=== PATIENT | male | born 1935 | race Caucasian/White ===

== ENCOUNTER 2020-06-21 10:20 | Outpatient (REF) | payer MEDICARE, SELFPAY ==
[2020-06-21 13:19] LABS: Anion Gap 13 (12-20); Blood Urea Nitrogen 17 mg/dL (9-16); Calcium 9.1 mg/dL (8.4-10.2); Carbon Dioxide 31 mmol/L (22-29); Chloride 104 mmol/L (96-108); Estimated Glomerular Filt Rate > 60; Glucose Random 123 mg/dL (60-115); Potassium 4.2 mmol/L (3.3-5.1); Sodium 144 mmol/L (135-145)
== END 2020-06-21 10:21 | disposition home or self-care (01) ==
LOC: HO.10HDL 10:20
PROVIDERS: Visit Provider Internal Medicine
DX: I10 Essential (primary) hypertension (principal); J44.9 Chronic obstructive pulmonary disease, unspecified; E78.00 Pure hypercholesterolemia, unspecified; R97.20 Elevated prostate specific antigen [PSA]; Z12.5 Encounter for screening for malignant neoplasm of prostate
CPT/HCPCS: 36415; 80048; 84153

== ENCOUNTER 2020-07-03 11:02 | Outpatient (REF) | payer MEDICARE, SELFPAY ==
[2020-07-03 15:42] LABS: PSA,Total (Free>4and<10) 7.11 ng/mL (0.00-4.00)
[2020-07-04 11:36] LABS: Free Prostate Spec Ag 1.2 ng/mL; Percent Free Prostate Spec Ag 19 % (calc) (>25); Prostate Specific Ag Total 6.2 ng/mL (< OR = 4.0)
== END 2020-07-03 11:03 | disposition home or self-care (01) ==
LOC: HO.10HDL 11:02
PROVIDERS: Visit Provider Internal Medicine
DX: R97.20 Elevated prostate specific antigen [PSA] (principal); Z12.5 Encounter for screening for malignant neoplasm of prostate
CPT/HCPCS: 36415; 84153; 84154

== ENCOUNTER → 2020-09-06 13:57 | Outpatient (BNVA) | payer MEDICARE, SELFPAY | PROVIDERS: PCP Internal Medicine; Visit Provider Urology | DX: R97.20 Elevated prostate specific antigen [PSA] (principal); N40.2 Nodular prostate without lower urinary tract symptoms | CPT/HCPCS: 99202 ==

== ENCOUNTER 2020-12-24 10:02 | Outpatient (REF) | payer MEDICARE, SELFPAY | END 2020-12-24 10:03 | disposition home or self-care (01) | LOC: HO.10HDL 10:02 | PROVIDERS: Visit Provider Urology | DX: R97.20 Elevated prostate specific antigen [PSA] (principal) | CPT/HCPCS: 36415; 84153 ==

== ENCOUNTER → 2021-01-08 13:50 | Outpatient (BNVA) | payer MEDICARE, SELFPAY | PROVIDERS: PCP Internal Medicine; Visit Provider Urology | DX: N40.1 Benign prostatic hyperplasia with lower urinary tract symptoms (principal); N13.8 Other obstructive and reflux uropathy; N47.1 Phimosis; R39.12 Poor urinary stream; R97.20 Elevated prostate specific antigen [PSA] | CPT/HCPCS: Q3014 ==

== ENCOUNTER → 2021-02-15 13:42 | Outpatient (BNVA) | payer MEDICARE, SELFPAY | PROVIDERS: Visit Provider Urology | DX: N40.2 Nodular prostate without lower urinary tract symptoms (principal); N47.1 Phimosis; R97.20 Elevated prostate specific antigen [PSA] | CPT/HCPCS: 99212 ==

== ENCOUNTER 2021-04-10 07:46 | Outpatient (REF) | payer MEDICARE, SELFPAY ==
[2021-04-10 10:20] LABS: Basophils Absolute Auto 0.1 X10*3/uL (0.0-0.2); Basophils Percent Auto 0.7 % (0-2); Eosinophils Absolute Auto 0.2 X10*3/uL (0.0-0.4); Hematocrit 42.4 % (42.0-52.0); Hemoglobin 13.9 g/dl (14.0-18.0); Imm Gran Abs Auto 0.02 X10*3/uL (0.00-0.03); Imm Gran Pct Auto 0.3 % (0.0-0.4); Lymphocytes Absolute Auto 2.4 X10*3/uL (1.2-4.9); Lymphocytes Percent Auto 33.1 % (20-40); MANUAL DIFF FLAG SCAN; Mean Corpuscular HGB Conc 32.8 g/dl (31.0-36.0); Mean Corpuscular Volume 91.4 fL (80.0-98.0); Monocytes Absolute Auto 0.6 X10*3/uL (0.1-1.2); Monocytes Percent Auto 7.5 % (2-11); Neutrophils Absolute Auto 4.1 x10*3/uL (2.0-8.3); Neutrophils Percent Auto 55.4 % (45-73); PLT CLUMP 1; Red Blood Count 4.64 X10*6/uL (4.60-5.80); Red Cell Distribution Width 12.5 % (11.0-16.0); SCAN SMEAR FLAG 1
[2021-04-10 10:52] LABS: Platelet Count 140 X10*3/uL (160-400); White Blood Count 7.4 X10*3/uL (4.8-10.8)
[2021-04-10 10:53] LABS: SLIDE REVIEW VERIFIED
[2021-04-10 10:57] LABS: Alanine Aminotransferase 11 U/L (0-40); Alkaline Phosphatase 51 U/L (39-117); Anion Gap 11 (12-20); Aspartate Amino Transferase 15 U/L (5-37); Bilirubin Total 0.5 mg/dL (0.0-1.0); Blood Urea Nitrogen 23 mg/dL (9-16); Calcium 9.4 mg/dL (8.4-10.2); Carbon Dioxide 32 mmol/L (22-29); Chloride 105 mmol/L (96-108); Cholesterol 177 mg/dL; Estimated Glomerular Filt Rate 57; Glucose Fasting 107 mg/dL (60-99); HDL Cholesterol 39 mg/dL; LDL Cholesterol Calculated 115 mg/dl; Potassium 4.6 mmol/L (3.3-5.1); Sodium 143 mmol/L (135-145); Total Protein 6.3 g/dL (6.5-8.0); Triglycerides 116 mg/dL
== END 2021-04-10 07:47 | disposition home or self-care (01) ==
LOC: HO.10HDL 07:46
PROVIDERS: Visit Provider Internal Medicine
DX: I10 Essential (primary) hypertension (principal); J44.9 Chronic obstructive pulmonary disease, unspecified; E78.00 Pure hypercholesterolemia, unspecified
CPT/HCPCS: 36415; 80053; 80061; 85025

== ENCOUNTER → 2021-08-20 14:42 | Outpatient (BNVA) | payer MEDICARE, SELFPAY | PROVIDERS: PCP Internal Medicine; Visit Provider Urology | DX: N40.3 Nodular prostate with lower urinary tract symptoms (principal); N13.8 Other obstructive and reflux uropathy; R97.20 Elevated prostate specific antigen [PSA]; Z79.899 Other long term (current) drug therapy | CPT/HCPCS: 51798; 99212 ==

== ENCOUNTER 2022-02-25 10:30 | Outpatient (REF) | payer MEDICARE, SELFPAY ==
[2022-02-25 12:23] LABS: Anion Gap 12 (12-20); Blood Urea Nitrogen 21 mg/dL (9-16); Calcium 9.1 mg/dL (8.4-10.2); Carbon Dioxide 31 mmol/L (22-29); Chloride 103 mmol/L (96-108); Estimated Glomerular Filt Rate 58; Glucose Random 72 mg/dL (60-115); Potassium 4.3 mmol/L (3.3-5.1); Sodium 142 mmol/L (135-145)
[2022-02-25 13:04] LABS: PSA,Total (Free>4and<10) 6.29 ng/mL (0.00-4.00)
[2022-02-27 11:07] LABS: Free Prostate Spec Ag 0.9 ng/mL; Percent Free Prostate Spec Ag 30 % (calc) (>25)
== END 2022-02-25 10:31 | disposition home or self-care (01) ==
LOC: HO.10HDL 10:30
PROVIDERS: Absent Provider Internal Medicine; Visit Provider Urology
DX: N40.1 Benign prostatic hyperplasia with lower urinary tract symptoms (principal); N13.8 Other obstructive and reflux uropathy; R97.20 Elevated prostate specific antigen [PSA]; N18.9 Chronic kidney disease, unspecified; E78.00 Pure hypercholesterolemia, unspecified; Z12.5 Encounter for screening for malignant neoplasm of prostate
CPT/HCPCS: 36415; 80048; 84153; 84154

== ENCOUNTER → 2022-03-13 10:03 | Outpatient (BNVA) | payer MEDICARE, SELFPAY | PROVIDERS: PCP Internal Medicine; Visit Provider Urology | DX: N40.1 Benign prostatic hyperplasia with lower urinary tract symptoms (principal); N13.8 Other obstructive and reflux uropathy; R97.20 Elevated prostate specific antigen [PSA]; N47.1 Phimosis | CPT/HCPCS: Q3014 ==

== ENCOUNTER 2022-04-24 07:50 | Outpatient (REF) | payer MEDICARE, SELFPAY ==
[2022-04-24 10:51] LABS: Eosinophils Percent Auto 3.8 % (0-4); Red Cell Distribution Width 12.6 % (11.0-16.0); SCAN SMEAR FLAG 1
[2022-04-24 10:53] LABS: Basophils Absolute Auto 0.1 X10*3/uL (0.0-0.2); Basophils Percent Auto 0.9 % (0-2); Eosinophils Absolute Auto 0.3 X10*3/uL (0.0-0.4); Hematocrit 40.3 % (42.0-52.0); Hemoglobin 13.2 g/dl (14.0-18.0); Imm Gran Abs Auto 0.01 X10*3/uL (0.00-0.03); Imm Gran Pct Auto 0.1 % (0.0-0.4); Lymphocytes Absolute Auto 2.7 X10*3/uL (1.2-4.9); Lymphocytes Percent Auto 35.1 % (20-40); MANUAL DIFF FLAG SCAN; Mean Corpuscular HGB Conc 32.8 g/dl (31.0-36.0); Mean Corpuscular Hemoglobin 28.9 pg (27.0-33.0); Mean Corpuscular Volume 88.4 fL (80.0-98.0); Monocytes Absolute Auto 0.6 X10*3/uL (0.1-1.2); Monocytes Percent Auto 7.8 % (2-11); Neutrophils Percent Auto 52.3 % (45-73); PLT CLUMP 1; Red Blood Count 4.56 X10*6/uL (4.60-5.80)
[2022-04-24 10:55] LABS: PLT ABN DIST 1
[2022-04-24 12:14] LABS: Platelet Count 165 X10*3/uL (160-400); White Blood Count 7.7 X10*3/uL (4.8-10.8)
[2022-04-24 12:15] LABS: SLIDE REVIEW VERIFIED
[2022-04-24 13:01] LABS: Alanine Aminotransferase 8 U/L (0-40); Albumin Level 3.8 g/dL (3.5-5.0); Alkaline Phosphatase 53 U/L (39-117); Anion Gap 11 (12-20); Aspartate Amino Transferase 14 U/L (5-37); Bilirubin Total 0.7 mg/dL (0.0-1.0); Blood Urea Nitrogen 16 mg/dL (9-16); Calcium 9.2 mg/dL (8.4-10.2); Carbon Dioxide 31 mmol/L (22-29); Chloride 104 mmol/L (96-108); Cholesterol 181 mg/dL; Estimated Glomerular Filt Rate > 60; Glucose Fasting 91 mg/dL (60-99); HDL Cholesterol 37 mg/dL; LDL Cholesterol Calculated 119 mg/dl; Potassium 4.4 mmol/L (3.3-5.1); Sodium 142 mmol/L (135-145); Total Protein 6.1 g/dL (6.5-8.0); Triglycerides 129 mg/dL
== END 2022-04-24 07:51 | disposition home or self-care (01) ==
LOC: HO.10HDL 07:50
PROVIDERS: Visit Provider Internal Medicine
DX: E78.00 Pure hypercholesterolemia, unspecified (principal); J44.9 Chronic obstructive pulmonary disease, unspecified; N40.0 Benign prostatic hyperplasia without lower urinary tract symptoms
CPT/HCPCS: 36415; 80053; 80061; 85025

== ENCOUNTER 2022-06-16 09:54 | Inpatient (IN) | payer MEDICARE, SELFPAY ==
[2022-06-16] VITALS (8 sets, daily range): BP systolic 121–182; BP diastolic 62–90; PULSE 54–67; RESP 15–22; TEMP 36.4–36.8; O2SAT 93–98; BMI 26.9
--- NOTE | 2022-06-16 10:09 | ED.CHESTPAIN ---
HPI - Chest Pain General Chief Complaint: Chest Pain Stated Complaint: CP DOWN L ARM SINCE 9:30,NO HX Time Seen by Provider: 06/16/22 09:58 Source: patient Mode of arrival: EMS Limitations: no limitations History of Present Illness HPI narrative: After going to the store this morning patient developed gastric distress, started belching and developed chest pain. He states that he started to sweat. No recent heart issues, no history of chest pain. MD complaint: chest heaviness Onset (ago): minute(s) Prior episodes: No Onset: during rest Pain location: substernal Pain radiation: none Severity: moderate Quality: tightness and aching Treatment prior to arrival: aspirin Related Data Home Medications Medication Instructions Recorded Confirmed lovastatin 40 mg tablet 40 mg PO BEDTIME 09/06/20 06/16/22 multivitamin 1 tab PO QAM 06/16/22 06/16/22 Previous Rx's Medication Instructions Recorded finasteride 5 mg tablet 5 mg PO DAILY 90 days #90 tabs 03/13/22 Allergies Allergy/AdvReac Type Severity Reaction Status Date / Time No Known Allergies Allergy Verified 06/16/22 10:09 [No Known Allergies*] Review of Systems Review of Systems: Yes all other systems are reviewed and are negative Cardiovascular: Cardiovascular: Reports chest pain at rest Neurologic: Denies Sensory deficit (Neuro) [facility] Past Medical History Medical History HTN (hypertension) Family History Family History Father Prostate cancer Diabetes Mother Heart attack Social History Social History Alcohol intake: current Alcohol intake frequency: holidays/special occasions only Patient Tobacco Use Status: Former Tobacco user Smoked in Last 30 Days: No Use of substances other than those prescribed or required for medical reasons: No Advance Directives: Yes Advance Directives on File: No Physical Exam Vital Signs: Vital Signs: Last Vital Signs Temp 97.5 F 06/16/22 10:10 Pulse 54 06/16/22 13:41 Resp 15 06/16/22 13:41 BP 138/65 06/16/22 13:41 Pulse Ox 97 06/16/22 13:41 O2 Del Method 02/06/23 13:41 BMI result Body Mass Index 26.9 Const: General: healthy appearing Nutritional Appearance: average body habitus Orientation/consciousness: oriented to person and patient oriented x3 Limitations: no limitations HEENT: Head: Yes normal to inspection Ears: external ears normal General nose exam: Normal external nose present Mouth: Normal oral and palatal mucosa present and oropharynx normal Throat: Yes posterior oropharynx normal Eyes: General: appearance normal, both eyes and all related structures Neck: Other: supple Neck: Yes normal visual inspection Chest: Chest palpation & inspection: normal inspection of the chest Resp: Auscultation: clear to auscultation bilaterally Cardio: Jugular venous distension: no JVD Rate: regular rate Rhythm: regular rhythm Heart sounds: S1 normal heart sound present and S2 normal heart sound present GI: Inspection: Yes normal to inspection Palpation (GI): Soft to palpation, nontender and No hepatosplenomegaly present Auscultation: normal bowel sounds : General: Yes no CVA tenderness Back/Spine/Pelvis: Back: no CVA tenderness Skin: General skin exam: no rashes or lesions noted Neuro: General: oriented to person and patient oriented x3 Cranial nerves: Yes CN's II-XII intact bilaterally Motor exam (neuro): 5/5 motor strength present throughout Sensory Exam: No Sensory deficit (Neuro) Extrem: General: Yes normal to inspection Psych: Appearance: grossly normal Course Reevaluation(s) Reevaluation #1: repeat troponin elevated, discussed with dr. Ward will admit Time: 14:59 Reevaluation #2: I spent 40 minutes of critical care, with interventions, assessments, speaking to patient, consultants, and family. Time: 14:59 Medications Administered Generic Name Dose Route Start Last Admin Trade Name Freq PRN Reason Stop Dose Admin Nitroglycerin 0.4 mg 06/16/22 10:42 06/16/22 10:32 Nitroglycerin 0.4 Mg Tab.Subl SUBLINGUAL 0.4 mg Q5MX3 PRN Administration Chest Pain Discontinued Medications Generic Name Dose Route Start Last Admin Trade Name Freq PRN Reason Stop Dose Admin Al Hydroxide/Mg Hydroxide 30 ml 06/16/22 10:55 06/16/22 11:28 Magnesium Hydrox/Alum Hydrox 30 Ml Oral.Susp PO 06/16/22 10:56 30 ml ONCE ONE Administration Belladonna Alkaloids/Phenobarbital 10 ml 06/16/22 10:55 06/16/22 11:28 Phenobarb/Hyoscy/Atropine/Scop 10 Ml Elixir PO 06/16/22 10:56 10 ml ONCE ONE Administration Lidocaine HCl 15 ml 06/16/22 10:55 06/16/22 11:28 Lidocaine Hcl Viscous 2 % 15 Ml Solution MUCOUS MEM 06/16/22 10:56 15 ml ONCE ONE Administration Medical Decision Making Differential Diagnosis Differential Diagnoses: The differential diagnosis associated with the presentation includes (STEMI, cardiac ischemia, GERD) cardiac ischemia Consult Healthcare Provider Management of the patient was discussed with: Hospitalist and Filter Press Supervisor (cardiology dr. Ward) Lab Data MDM Lab Attestation statement: I reviewed the patient's lab results. 06/16/22 10:24 06/16/22 10:24 Labs: Lab Results 06/16/22 06/16/22 06/16/22 Range/Units 10:24 10:24 10:24 WBC 7.9 (4.8-10.8) X10*3/uL RBC 4.66 (4.60-5.80) X10*6/uL Hgb 13.5 L (14.0-18.0) g/dl Hct 40.4 L (42.0-52.0) % MCV 86.7 (80.0-98.0) fL MCH 29.0 (27.0-33.0) pg MCHC 33.4 (31.0-36.0) g/dl RDW 12.1 (11.0-16.0) % Plt Count 136 L (160-400) X10*3/uL MPV 12.4 (9.4-12.4) fL Immature Gran % (Auto) 0.3 (0.0-0.4) % Neut % (Auto) 61.2 (45-73) % Lymph % (Auto) 28.3 (20-40) % [place] % (Auto) 7.5 (2-11) % Eos % (Auto) 1.9 (0-4) % Baso % (Auto) 0.8 (0-2) % Lymph # (Auto) 2.2 (1.2-4.9) X10*3/uL [place] # (Auto) 0.6 (0.1-1.2) X10*3/uL Eos # (Auto) 0.2 (0.0-0.4) X10*3/uL Baso # (Auto) 0.1 (0.0-0.2) X10*3/uL Abs Immat Gran (auto) 0.02 (0.00-0.03) X10*3/uL Absolute Neuts (auto) 4.8 (2.0-8.3) x10*3/uL Absolute Nucleated RBC 0.000 (0.0-0.012) X10*3/uL Nucleated RBC % (auto) 0.0 (0.0-0.2) /100WBC Sodium 141 (135-145) mmol/L Potassium 4.0 (3.3-5.1) mmol/L Chloride 104 (96-108) mmol/L Carbon Dioxide 30 H (22-29) mmol/L Anion Gap 11 L (12-20) BUN 24 H (9-16) mg/dL Creatinine 1.16 (0.5-1.4) mg/dL Estim Creat Clear Calc 49.5 Estimated GFR 60 Random Glucose 127 H (60-115) mg/dL Calcium 9.2 (8.4-10.2) mg/dL Troponin I High Sens 5.8 (<3.5-35.0) ng/L 06/16/22 Range/Units 12:53 WBC (4.8-10.8) X10*3/uL RBC (4.60-5.80) X10*6/uL Hgb (14.0-18.0) g/dl Hct (42.0-52.0) % MCV (80.0-98.0) fL MCH (27.0-33.0) pg MCHC (31.0-36.0) g/dl RDW (11.0-16.0) % Plt Count (160-400) X10*3/uL MPV (9.4-12.4) fL Immature Gran % (Auto) (0.0-0.4) % Neut % (Auto) (45-73) % Lymph % (Auto) (20-40) % [place] % (Auto) (2-11) % Eos % (Auto) (0-4) % Baso % (Auto) (0-2) % Lymph # (Auto) (1.2-4.9) X10*3/uL [place] # (Auto) (0.1-1.2) X10*3/uL Eos # (Auto) (0.0-0.4) X10*3/uL Baso # (Auto) (0.0-0.2) X10*3/uL Abs Immat Gran (auto) (0.00-0.03) X10*3/uL Absolute Neuts (auto) (2.0-8.3) x10*3/uL Absolute Nucleated RBC (0.0-0.012) X10*3/uL Nucleated RBC % (auto) (0.0-0.2) /100WBC Sodium (135-145) mmol/L Potassium (3.3-5.1) mmol/L Chloride (96-108) mmol/L Carbon Dioxide (22-29) mmol/L Anion Gap (12-20) BUN (9-16) mg/dL Creatinine (0.5-1.4) mg/dL Estim Creat Clear Calc Estimated GFR Random Glucose (60-115) mg/dL Calcium (8.4-10.2) mg/dL Troponin I High Sens 167.3 H* D (<3.5-35.0) ng/L Independent Interpretation I performed an independent interpretation of an: EKG (sinus 60, 1st degree AV block, no st or twave changes) Interpretation: repeat EKG sinus 60, jpoint elevation resolved Discharge Plan Discharge Clinical Impression: Cardiac ischemia, Elevated troponin Patient Disposition: Admitted As Inpatient
--- NOTE | 2022-06-16 10:14 | ECG_ITS ---
Test Reason : REPEAT Blood Pressure : / mmHG Vent. Rate : 058 BPM Atrial Rate : 058 BPM P-R Int : 222 ms QRS Dur : 090 ms QT Int : 438 ms P-R-T Axes : 074 043 054 degrees QTc Int : 429 ms Sinus bradycardia with 1st degree A-V block Otherwise normal ECG When compared with ECG of 08-JAN-2020 11:44, No significant change was found Referred By: Wilfredo Miranda Electronically Signed By:ANNABELLE BAPTISTE MD
[2022-06-16 10:28] LABS: MANUAL DIFF FLAG NO
[2022-06-16] MEDS: Nitroglycerin 0.4 MG TAB.SUBL SUBLINGUAL (10:32)
[2022-06-16 10:33] LABS: Basophils Absolute Auto 0.1 X10*3/uL (0.0-0.2); Basophils Percent Auto 0.8 % (0-2); Eosinophils Absolute Auto 0.2 X10*3/uL (0.0-0.4); Eosinophils Percent Auto 1.9 % (0-4); Hematocrit 40.4 % (42.0-52.0); Hemoglobin 13.5 g/dl (14.0-18.0); Imm Gran Abs Auto 0.02 X10*3/uL (0.00-0.03); Imm Gran Pct Auto 0.3 % (0.0-0.4); Lymphocytes Absolute Auto 2.2 X10*3/uL (1.2-4.9); Lymphocytes Percent Auto 28.3 % (20-40); Mean Corpuscular HGB Conc 33.4 g/dl (31.0-36.0); Mean Corpuscular Volume 86.7 fL (80.0-98.0); Mean Platelet Volume 12.4 fL (9.4-12.4); Monocytes Absolute Auto 0.6 X10*3/uL (0.1-1.2); Monocytes Percent Auto 7.5 % (2-11); Neutrophils Absolute Auto 4.8 x10*3/uL (2.0-8.3); Neutrophils Percent Auto 61.2 % (45-73); Platelet Count 136 X10*3/uL (160-400); Red Blood Count 4.66 X10*6/uL (4.60-5.80); Red Cell Distribution Width 12.1 % (11.0-16.0); White Blood Count 7.9 X10*3/uL (4.8-10.8)
--- NOTE | 2022-06-16 10:35 | PC.NURSE ---
pt medicated with nitro per order
--- NOTE | 2022-06-16 10:46 | PC.NURSE ---
pt AOx3, VSS, engine monitor applied, EKG done. Reports 4/10 chest pain. Nitro given per order. Pt met with provider.
--- NOTE | 2022-06-16 10:50 | PC.NURSE ---
pt still c/o chest pain, vss, pt c/o dizziness, lightheaded, will notify provider and not administer additional nitro at this time
[2022-06-16 10:53] LABS: Anion Gap 11 (12-20); Blood Urea Nitrogen 24 mg/dL (9-16); Calcium 9.2 mg/dL (8.4-10.2); Carbon Dioxide 30 mmol/L (22-29); Chloride 104 mmol/L (96-108); Creatinine Clr Calc Pharmacy 49.5; Estimated Glomerular Filt Rate 60; Glucose Random 127 mg/dL (60-115); Sodium 141 mmol/L (135-145)
[2022-06-16 11:01] LABS: Troponin-I High Sensitivity 5.8 ng/L (<3.5-35.0)
[2022-06-16] MEDS: Lidocaine HCl Viscous 2 % 15 ML SOLUTION MUCOUS MEM (11:28)
[2022-06-16] MEDS: PHENobarb/Hyoscy/Atropine/Scop 10 ML ELIXIR PO (11:28)
[2022-06-16] MEDS: Magnesium Hydrox/Alum Hydrox 30 ML ORAL.SUSP PO (11:28)
--- NOTE | 2022-06-16 11:30 | PC.NURSE ---
pt a&ox3, vss, pt medicated with gi cocktail, at bedside, quality assurance monitor body intact, call asher within reach, will continue to monitor.
[2022-06-16 13:49] LABS: Troponin-I High Sensitivity 167.3 ng/L (<3.5-35.0)
--- NOTE | 2022-06-16 13:56 | ECG_ITS ---
Test Reason : chest pain Blood Pressure : / mmHG Vent. Rate : 062 BPM Atrial Rate : 062 BPM P-R Int : 216 ms QRS Dur : 084 ms QT Int : 436 ms P-R-T Axes : 084 055 036 degrees QTc Int : 442 ms Sinus rhythm with 1st degree A-V block Otherwise normal ECG When compared with ECG of 16-JUN-2022 13:59, No significant change was found Referred By: Wilfredo Miranda Electronically Signed By:ANNABELLE BAPTISTE MD
--- NOTE | 2022-06-16 14:38 | P.HPHOSP_ITS ---
History of Present Illness Date of Service: 06/16/22 Chief Complaint: Chest pain 87 year old man presenting with chest and epigastric pain with associated diaphoresis that started when he got home from grocery shopping. He reported that he went to sit down and read and started getting epigastric pain, belching and felt diaphoretic. He denied any radiation or other associated symptoms including nausea, vomiting, diarrhea, shortness breath, loss of consciousness. He denied any recent illness, sick contacts, recent travel, history of heart disease. He became concerned about his symptoms and he told his he was going to call 911. On arrival to the ER, his initial troponin was 5.8 and repeat of 167.3 with j point elevated to inital EKG. Chest pain has subsided and patient was given nitroglycerin and started on Heparin drip. He will be admitted for further management and treatment of NSTEMI Review of Systems Review of Systems: Denies any recent fever chills or decrease in appetite respiratory denies any shortness of breath coverage production cardiovascular See HPI gastrointestinal denies any dysphagia abdominal pain nausea vomiting or diarrhea genitourinary denies any dysuria frequency or hematuria musculoskeletal denies any joint pain or swelling neuropsych denies any weakness or seizures all other systems reviewed are negative [facility] Medical History (Updated 06/16/22 @ 15:53 by Blue Ward MD) BPH w urinary obs/LUTS Elevated PSA HTN (hypertension) Phimosis Prostate nodule Family History Father Prostate cancer Diabetes Mother Heart attack Surgical History (Updated 06/16/22 @ 15:58 by Florence Sams NP) History of tonsillectomy Social History Alcohol intake: current Alcohol intake frequency: holidays/special occasions only Patient Tobacco Use Status: Former Tobacco user Smoked in Last 30 Days: No Use of substances other than those prescribed or required for medical reasons: No Advance Directives: Yes Advance Directives on File: No Meds Allergies Allergy/AdvReac Type Severity Reaction Status Date / Time No Known Allergies Allergy Verified 06/16/22 10:09 [No Known Allergies*] Active Medications: Current Medications Heparin Sodium (Porcine) (Heparin Sodium,Porcine 5,000 Unit/Ml Vial) 3,500 unit 40 unit/kg (3500 unit) IVPUSH PROTOCOL BOLUS PRN; Protocol PRN Reason: 40 unit/kg - Heparin Protocol Heparin Sodium (Porcine) (Heparin Sodium,Porcine 5,000 Unit/Ml Vial) 7,000 unit 80 unit/kg (7000 unit) IVPUSH PROTOCOL BOLUS PRN; Protocol PRN Reason: 80 unit/kg - Heparin Protocol Heparin Sodium/Sodium Chloride (Heparin Sodium,Porcine/1/2ns) 25,000 unit in 250 mls @ 0 mls/hr IVCONT .Q0M RODDY; Protocol Nitroglycerin (Nitroglycerin 0.4 Mg Tab.Subl) 0.4 mg SUBLINGUAL Q5MX3 PRN PRN Reason: Chest Pain Last Admin: 06/16/22 10:32 Dose: 0.4 mg Pharmacy Consult (Consult Rx Perform Med Rec) 1 each MISCELLANE ONCE PRN PRN Reason: Consult order Home Medications Medication Instructions Recorded Confirmed Last Taken Type lovastatin 40 mg tablet 40 mg PO BEDTIME 09/06/20 06/16/22 06/15/22 16:00 History multivitamin 1 tab PO QAM 06/16/22 06/16/22 06/16/22 08:00 History Physical Exam Vital Signs and Narrative: Vital Signs: Last Vital Signs Temp 97.5 F 06/16/22 10:10 Pulse 54 06/16/22 13:41 Resp 15 06/16/22 13:41 BP 138/65 06/16/22 13:41 Pulse Ox 97 06/16/22 13:41 O2 Del Method 06/16/22 13:41 BMI result Body Mass Index 26.9 Appearing in no acute distress head is normocephalic atraumatic eyes pupils are PERRLA sclera is anicteric mouth throat mucous membranes are intact and moist neck is supple no lymphadenopathy, no JVD noted lung sounds are clear to auscultation heart regular rate rhythm, clear S1, S2 positive bowel sounds, abdomen is soft, nontender neuro patient is alert x3, no focal deficits Results Labs 06/16/22 10:24 06/16/22 10:24 Labs: Laboratory Results - last 24 hr 06/16/22 06/16/22 06/16/22 10:24 10:24 10:24 MCV 86.7 MCH 29.0 MCHC 33.4 RDW 12.1 Plt Count 136 L MPV 12.4 Immature Gran % (Auto) 0.3 Neut % (Auto) 61.2 Lymph % (Auto) 28.3 [place] % (Auto) 7.5 Eos % (Auto) 1.9 Baso % (Auto) 0.8 Lymph # (Auto) 2.2 [place] # (Auto) 0.6 Eos # (Auto) 0.2 Baso # (Auto) 0.1 Abs Immat Gran (auto) 0.02 Absolute Neuts (auto) 4.8 Absolute Nucleated RBC 0.000 Nucleated RBC % (auto) 0.0 Anion Gap 11 L Estim Creat Clear Calc 49.5 Estimated GFR 60 Random Glucose 127 H Calcium 9.2 Troponin I High Sens 5.8 06/16/22 12:53 MCV MCH MCHC RDW Plt Count MPV Immature Gran % (Auto) Neut % (Auto) Lymph % (Auto) [place] % (Auto) Eos % (Auto) Baso % (Auto) Lymph # (Auto) [place] # (Auto) Eos # (Auto) Baso # (Auto) Abs Immat Gran (auto) Absolute Neuts (auto) Absolute Nucleated RBC Nucleated RBC % (auto) Anion Gap Estim Creat Clear Calc Estimated GFR Random Glucose Calcium Troponin I High Sens 167.3 H* D Assessment and Plan (1) BPH w urinary obs/LUTS: Status: Inactive (2) Acute coronary syndrome: Status: Acute Plan 87-year-old man admitted with acute NSTEMI, initially with chest and epigastric pain that has since resolved after initiation of nitroglycerin and IV heparin. NSTEMI Abnormal EKG Trop elevation started on Heparin drip cardiology aware monitor on telemetry likely tx to [facility] for cath Elevated blood pressure readings No history of high blood pressure Hydralazine for SBP greater than 180 BPH finsteride Hyperlipidemia Continue statin DVT prophylaxis with heparin Attending Dr. Alan full code Patient required 2 inpatient midnights for treatment of acute NSTEMI requiring IV heparin and close monitoring Time Spent With Patient Time: Total time managing care of this patient today ____ minutes. Quality Stroke Does the patient have a stroke diagnosis?: No VTE Prior VTE?: No VTE Risk Level:: Medical - moderate - high VTE Device Contraindication: Treatment Not Indicated VTE Drug Contraindication: N/A - Med Ordered
[2022-06-16 14:41] LABS: Hematocrit 41.2 % (42.0-52.0); Hemoglobin 13.9 g/dl (14.0-18.0); Mean Corpuscular HGB Conc 33.7 g/dl (31.0-36.0); Mean Corpuscular Hemoglobin 29.4 pg (27.0-33.0); Mean Corpuscular Volume 87.3 fL (80.0-98.0); Mean Platelet Volume 12.9 fL (9.4-12.4); Platelet Count 143 X10*3/uL (160-400); Red Blood Count 4.72 X10*6/uL (4.60-5.80); White Blood Count 10.4 X10*3/uL (4.8-10.8)
[2022-06-16 14:57] LABS: Prothrombin Time 11.5 SEC (10.0-13.1); Prothrombin Time 11.7 SEC (10.0-13.1)
--- NOTE | 2022-06-16 14:58 | PHA.MEDREC ---
Pharmacy Consult ? Medication Reconciliation Pharmacy has completed the medication reconciliation.
[2022-06-16 15:00] LABS: PTT Heparin Drip 35.9 SEC (53-77.9)
[2022-06-16] MEDS: Nitroglycerin 2 % Oint 1 GM Packet 1 INCH TRANSDERMA (15:17)
[2022-06-16] MEDS: Heparin Sodium,Porcine 5,000 UNIT/ML VIAL 7000 UNIT IVPUSH (15:25)
[2022-06-16] MEDS: Heparin Sodium,Porcine/1/2NS 25,000 UNIT/250 ML IV.SOLN 12.25 UNIT IVCONT (15:30)
[2022-06-16] MEDS: 0.9 % Sodium Chloride Flush 3 ML SYRINGE IVFLUSH (15:35)
--- NOTE | 2022-06-16 15:36 | PC.NURSE ---
pt AOx3, vss. Heparin drip started. Annette Mackay RN at bedside assisting. Hospitalist and Duct Cleaner met with patient.
--- NOTE | 2022-06-16 15:39 | PC.NURSE ---
Wifes phone number Shannan Petersen [phone]
--- NOTE | 2022-06-16 15:41 | ECG_ITS ---
Test Reason : cp Blood Pressure : / mmHG Vent. Rate : 063 BPM Atrial Rate : 063 BPM P-R Int : 234 ms QRS Dur : 088 ms QT Int : 422 ms P-R-T Axes : 063 062 058 degrees QTc Int : 431 ms Sinus rhythm with 1st degree A-V block Otherwise normal ECG When compared with ECG of 08-JAN-2020 11:44, PA interval has increased Referred By: Wilfredo Miranda Electronically Signed By:ANNABELLE BAPTISTE MD
--- NOTE | 2022-06-16 15:49 | P.CONCA_ITS ---
History of Present Illness History of Present Illness Date of Service: 06/16/22 Requesting physician: Wilfredo Miranda Consult reason: other (Acute coronary syndrome) Chief complaint: NSTEMI Narrative: I was consulted to see Pj in cardiology consultation today for acute chest pain and elevated troponins on serial measurements. He is 87-year-old very healthy man with prior history of hyperlipidemia as well as prostate issues. Generally in good shape. He said he went to the store today and came back home and after breakfast and coffee started developing retrosternal chest discomfort which she thought was indigestion initially. He continued to have belching and the pain continued to get worse and then he got severely diaphoretic and he called 911 and came to the emergency room. EKG does not show any significant ischemic changes. Her 1st troponin is 5 subsequent troponin of 169. His symptoms have pretty much resolved now with medical therapy with aspirin nitroglycerin. He is being started on IV heparin. He said he has been very minor discomfort on a scale of 1-10 is 0-1 at this point in time. He has never had prior coronary artery disease or acute coronary syndrome. Has never had prior chest pain syndrome. He denies any other recent symptoms. No systemic symptoms. Review of Systems Constitutional: Constitutional: Reports no additional constitutional complaints Eyes: Eyes: Reports no additional eye complaints Cardiovascular: Cardiovascular: Reports chest pain at rest, Denies leg edema, Denies lightheadedness, Denies Loss of Consciousness, Denies palpitations and Denies dyspnea Respiratory: Respiratory: Reports no additional respiratory complaints and Denies dyspnea Gastrointestinal: Gastrointestinal: Reports no additional gastrointestinal complaints Genitourinary: Genitourinary: Reports no additional male genitourinary compl aints Musculoskeletal: Musculoskeletal: Reports no additional musculoskeletal complaints Integumentary/Breasts: Skin/Breast: Reports system reviewed and no additional complaints, except as docu Neurologic: Reports system reviewed and no additional complaints, except as documented Psychiatric: Psychiatric: Reports no additional psychiatric complaints Endocrine: Endocrine: Denies palpitations PMFSH Past Medical History Medical History BPH w urinary obs/LUTS Elevated PSA HTN (hypertension) Phimosis Prostate nodule Family History Family History Father Prostate cancer Diabetes Mother Heart attack Social History Social History Alcohol intake: current Alcohol intake frequency: holidays/special occasions only Patient Tobacco Use Status: Former Tobacco user Smoked in Last 30 Days: No Use of substances other than those prescribed or required for medical reasons: No Advance Directives: Yes Advance Directives on File: No Meds Allergies Allergy/AdvReac Type Severity Reaction Status Date / Time No Known Allergies Allergy Verified 06/16/22 10:09 [No Known Allergies*] Active Medications: Current Medications Acetaminophen (Acetaminophen 325 Mg Tablet) 650 mg PO Q6H PRN PRN Reason: Pain, Mild (Pain Scale 1-3) Heparin Sodium (Porcine) (Heparin Sodium,Porcine 5,000 Unit/Ml Vial) 3,500 unit 40 unit/kg (3500 unit) IVPUSH PROTOCOL BOLUS PRN; Protocol PRN Reason: 40 unit/kg - Heparin Protocol Heparin Sodium (Porcine) (Heparin Sodium,Porcine 5,000 Unit/Ml Vial) 7,000 unit 80 unit/kg (7000 unit) IVPUSH PROTOCOL BOLUS PRN; Protocol PRN Reason: 80 unit/kg - Heparin Protocol Heparin Sodium/Sodium Chloride (Heparin Sodium,Porcine/1/2ns) 25,000 unit in 250 mls @ 0 mls/hr IVCONT .Q0M [facility]; Protocol Last Admin: 06/16/22 15:30 Dose: 14 units/kg/hr, 12.25 mls/hr Nitroglycerin (Nitroglycerin 0.4 Mg Tab.Subl) 0.4 mg SUBLINGUAL Q5MX3 PRN PRN Reason: Chest Pain Last Admin: 06/16/22 10:32 Dose: 0.4 mg Ondansetron HCl (Ondansetron Hcl 4 Mg/2 Ml Vial) 4 mg IVPUSH Q8H PRN PRN Reason: Nausea and Vomiting Pharmacy Consult (Consult Rx Perform Med Rec) 1 each MISCELLANE ONCE PRN PRN Reason: Consult order Sodium Chloride (0.9 % Sodium Chloride Flush 3 Ml Syringe) 3 ml IVFLUSH QSHIFT [facility] Last Admin: 06/16/22 15:35 Dose: 3 ml Home Medications Medication Instructions Recorded Confirmed Last Taken Type lovastatin 40 mg tablet 40 mg PO BEDTIME 09/06/20 06/16/22 06/15/22 16:00 History multivitamin 1 tab PO QAM 06/16/22 06/16/22 06/16/22 08:00 History Physical Exam Vital Signs: Vital Signs: Last Vital Signs Temp 97.5 F 06/16/22 10:10 Pulse 67 06/16/22 15:17 Resp 15 06/16/22 13:41 BP 176/74 H 06/16/22 15:17 Pulse Ox 97 06/16/22 13:41 O2 Del Method 06/16/22 13:41 BMI result Body Mass Index 26.9 Const: General: cooperative, comfortable, no acute distress, well developed, alert, awake and Physically active Nutritional Appearance: average body habitus and well nourished Orientation/consciousness: patient oriented x3 Limitations: no limitations HEENT: Head: Yes normocephalic and Yes atraumatic Neck: Neck: Yes trachea midline, Yes supple and Yes no JVD Resp: Effort & Inspection: normal respiratory effort Auscultation: clear to auscultation bilaterally Cardio: Jugular venous distension: no JVD Palpation: normal PMI Rate: regular rate Rhythm: regular rhythm Heart sounds: S1 normal heart sound present, S2 normal heart sound present, no click, no gallops, no murmurs and no rubs GI: Auscultation: normal bowel sounds Skin: General skin exam: no rashes or lesions noted Neuro: General: patient oriented x3 and no focal motor deficits Extrem: General: Yes no clubbing, cyanosis or edema Objective Labs and Meds 06/16/22 14:35 06/16/22 10:24 Lab results: Laboratory Results - last 24 hr 06/16/22 06/16/22 06/16/22 10:24 10:24 10:24 WBC 7.9 RBC 4.66 Hgb 13.5 L Hct 40.4 L MCV 86.7 MCH 29.0 MCHC 33.4 RDW 12.1 Plt Count 136 L MPV 12.4 Immature Gran % (Auto) 0.3 Neut % (Auto) 61.2 Lymph % (Auto) 28.3 [place] % (Auto) 7.5 Eos % (Auto) 1.9 Baso % (Auto) 0.8 Lymph # (Auto) 2.2 [place] # (Auto) 0.6 Eos # (Auto) 0.2 Baso # (Auto) 0.1 Abs Immat Gran (auto) 0.02 Absolute Neuts (auto) 4.8 Absolute Nucleated RBC 0.000 Nucleated RBC % (auto) 0.0 PT INR aPTT Heparin Protocol Sodium 141 Potassium 4.0 Chloride 104 Carbon Dioxide 30 H Anion Gap 11 L BUN 24 H Creatinine 1.16 Estim Creat Clear Calc 49.5 Estimated GFR 60 Random Glucose 127 H Calcium 9.2 Troponin I High Sens 5.8 06/16/22 06/16/22 06/16/22 12:53 14:35 14:35 WBC 10.4 RBC 4.72 Hgb 13.9 L Hct 41.2 L MCV 87.3 MCH 29.4 MCHC 33.7 RDW 12.0 Plt Count 143 L MPV 12.9 H Immature Gran % (Auto) Neut % (Auto) Lymph % (Auto) [place] % (Auto) Eos % (Auto) Baso % (Auto) Lymph # (Auto) [place] # (Auto) Eos # (Auto) Baso # (Auto) Abs Immat Gran (auto) Absolute Neuts (auto) Absolute Nucleated RBC 0.000 Nucleated RBC % (auto) 0.0 PT 11.7 INR 1.0 aPTT Heparin Protocol 35.9 L Sodium Potassium Chloride Carbon Dioxide Anion Gap BUN Creatinine Estim Creat Clear Calc Estimated GFR Random Glucose Calcium Troponin I High Sens 167.3 H* D 06/16/22 14:35 WBC RBC Hgb Hct MCV MCH MCHC RDW Plt Count MPV Immature Gran % (Auto) Neut % (Auto) Lymph % (Auto) [place] % (Auto) Eos % (Auto) Baso % (Auto) Lymph # (Auto) [place] # (Auto) Eos # (Auto) Baso # (Auto) Abs Immat Gran (auto) Absolute Neuts (auto) Absolute Nucleated RBC Nucleated RBC % (auto) PT 11.5 INR 1.0 aPTT Heparin Protocol 34.0 L Sodium Potassium Chloride Carbon Dioxide Anion Gap BUN Creatinine Estim Creat Clear Calc Estimated GFR Random Glucose Calcium Troponin I High Sens Assessment and Plan (1) Acute coronary syndrome: Status: Acute Patient was very healthy without any significant comorbidities in very active in his age presents with symptoms and cardiac biomarker evidence of acute coronary syndrome. He is currently with minimal chest discomfort. No significant EKG changes. I think he requires further treatment with IV heparin. Would loading with 4 baby aspirins and start him on aspirin a day. High-intensity statin therapy with Lipitor 80 mg daily as a start him on metoprolol for better blood pressure control. Also start him on low-dose nitropaste for vasodilation as well as blood pressure control. We discussed about further treatment option including invasive versus conservative treatment option. We discussed benefits of each option. We discussed about cardiac catheterization including the procedure including risk, benefits, alternatives 2nd open to procedure. Given his good health status and limited comorbidities would recommend him to undergo cardiac catheterization. Eventually after his arrival he agree to it. Transfer arrangements are being made to [facility], hopefully today. Please perform a rapid COVID testing for bed placement issues. Will follow-up as outpatient. Time Spent With Patient Time: Total time managing care of this patient today ____ minutes. Procedures Date of Service Date of Service: 06/16/22
--- NOTE | 2022-06-16 17:06 | P.DS_ITS ---
DS: Providers Provider Date of Service: 06/17/22 Date of admission: 06/16/22 14:35 Primary care physician: Ross Gaxiola MD Consults: 06/16/22 14:35 Consult to Cardiology Routine Consulting Provider: Blue Ward Reason for consultation: nstemi Has provider been notified: Yes Attending physician on discharge: Chandrakant Conteh DS: Diagnosis Discharge Diagnosis (1) BPH w urinary obs/LUTS: Status: Inactive (2) Acute coronary syndrome: Status: Acute DS: Summary Hospital Course Hospital Course: 87 year old man presenting with chest and epigastric pain with associated diaphoresis that started when he got home from grocery shopping.? He reported that he went to sit down and read and started getting epigastric pain, belching and felt diaphoretic.? He denied any radiation or other associated symptoms including nausea, vomiting, diarrhea, shortness breath, loss of consciousness.? He denied any recent illness, sick contacts, recent travel, history of heart disease.? He became concerned about his symptoms and he told his he was going to call 911.? On arrival to the ER, his initial troponin was 5.8 and repeat of 167.3 with j point elevated to inital EKG. Chest pain has subsided and patient was given nitroglycerin and started on Heparin drip. He will be admitted for further management and treatment of NSTEMI NSTEMI Abnormal EKG Trop elevation started on Heparin drip cardiology aware monitor on telemetry patient discharged overnight to [facility] for cath Elevated blood pressure readings No history of high blood pressure Hydralazine for SBP greater than 180 BPH finsteride Hyperlipidemia Continue statin Time Spent with Patient Time attestation: Total time managing care of this patient today ____ minutes. Discharge coordination time: Greater than 30 minutes Quality: Safe Use of Opioids Does Pt have an Active Cancer Diagnosis on the Problem List?: No Quality: Stroke Does the patient have a stroke diagnosis?: No Physical Exam Vital Signs: Vital Signs: Last Vital Signs Temp 97.5 F 06/16/22 10:10 Pulse 67 06/16/22 15:17 Resp 15 06/16/22 13:41 BP 176/74 H 06/16/22 15:17 Pulse Ox 97 06/16/22 13:41 O2 Del Method 06/16/22 13:41 BMI result Body Mass Index 26.9 Was not present during discharge to examine patient DS: Data Data Completed and Pending Labs on day of discharge: Laboratory Results - last 24 hr 06/16/22 06/16/22 06/16/22 10:24 10:24 10:24 WBC 7.9 RBC 4.66 Hgb 13.5 L Hct 40.4 L MCV 86.7 MCH 29.0 MCHC 33.4 RDW 12.1 Plt Count 136 L MPV 12.4 Immature Gran % (Auto) 0.3 Neut % (Auto) 61.2 Lymph % (Auto) 28.3 [place] % (Auto) 7.5 Eos % (Auto) 1.9 Baso % (Auto) 0.8 Lymph # (Auto) 2.2 [place] # (Auto) 0.6 Eos # (Auto) 0.2 Baso # (Auto) 0.1 Abs Immat Gran (auto) 0.02 Absolute Neuts (auto) 4.8 Absolute Nucleated RBC 0.000 Nucleated RBC % (auto) 0.0 PT INR aPTT Heparin Protocol Sodium 141 Potassium 4.0 Chloride 104 Carbon Dioxide 30 H Anion Gap 11 L BUN 24 H Creatinine 1.16 Estim Creat Clear Calc 49.5 Estimated GFR 60 Random Glucose 127 H Calcium 9.2 Troponin I High Sens 5.8 06/16/22 06/16/22 06/16/22 12:53 14:35 14:35 WBC 10.4 RBC 4.72 Hgb 13.9 L Hct 41.2 L MCV 87.3 MCH 29.4 MCHC 33.7 RDW 12.0 Plt Count 143 L MPV 12.9 H Immature Gran % (Auto) Neut % (Auto) Lymph % (Auto) [place] % (Auto) Eos % (Auto) Baso % (Auto) Lymph # (Auto) [place] # (Auto) Eos # (Auto) Baso # (Auto) Abs Immat Gran (auto) Absolute Neuts (auto) Absolute Nucleated RBC 0.000 Nucleated RBC % (auto) 0.0 PT 11.7 INR 1.0 aPTT Heparin Protocol 35.9 L Sodium Potassium Chloride Carbon Dioxide Anion Gap BUN Creatinine Estim Creat Clear Calc Estimated GFR Random Glucose Calcium Troponin I High Sens 167.3 H* D 06/16/22 14:35 WBC RBC Hgb Hct MCV MCH MCHC RDW Plt Count MPV Immature Gran % (Auto) Neut % (Auto) Lymph % (Auto) [place] % (Auto) Eos % (Auto) Baso % (Auto) Lymph # (Auto) [place] # (Auto) Eos # (Auto) Baso # (Auto) Abs Immat Gran (auto) Absolute Neuts (auto) Absolute Nucleated RBC Nucleated RBC % (auto) PT 11.5 INR 1.0 aPTT Heparin Protocol 34.0 L Sodium Potassium Chloride Carbon Dioxide Anion Gap BUN Creatinine Estim Creat Clear Calc Estimated GFR Random Glucose Calcium Troponin I High Sens Discharge Plan Discharge Anticipated Discharge Date/Time: 06/16/22 17:04 Patient Disposition: Xfer Acute Care Hospital Discharge Diagnosis: NSTEMI Referrals: Ross Gaxiola MD [Primary Care Provider] - 1 Week Discharge Medications: New heparin(porcine) in 0.45% NaCl 25,000 unit/250 mL Parenteral Solution 25,000 unit continuous IV infusion .Q0M Qty: 250 0RF Continued finasteride 5 mg tablet 5 mg PO DAILY 90 Days Qty: 90 1RF multivitamin Tablet 1 tab PO QAM lovastatin 40 mg tablet 40 mg PO BEDTIME Discharge Orders: Discharge Order (Routine); Ordered 06/16/22 Ordered By: Chandrakant Conteh Diet: Advance to usual diet Activity on Discharge: As tolerated Stand Alone Forms: Patient Portal Discharge page Care Plan Goals: Transfer to tertiary care facility for further management of acute coronary syndrome Health Concerns: NSTEMI Plan of Treatment: Transferred to [facility] for cardiac catheterization Assessment: See discharge summary Discharge Date/Time: 06/16/22 23:30
[2022-06-16 17:29] LABS: Troponin-I High Sensitivity > 3600.0 ng/L (<3.5-35.0)
--- NOTE | 2022-06-16 17:30 | PC.NURSE ---
pt AOx3, vss stable. cardiac nurse on, heparin drip running. pt resting calmly.
[2022-06-16 18:12] LABS: COVID-19 Test Negative (Negative); IDNOW Serial# BCCEAD1C
[2022-06-16 22:03] LABS: PTT Heparin Drip > 200.0 SEC (53-77.9)
--- NOTE | 2022-06-17 05:23 | PC.NURSE ---
Critical ptt level was drawn at 22:10 at >200.00. Doctor Wero notified before discharge and RN receiving report notified before being transported to [facility]. Denied any chest pain.
== END 2022-06-16 23:30 | disposition short-term general hospital (02) | DRG 282 ==
LOC: HO.ED 10:37 → HO.EDOVER 14:41 → HO.IMC 18:24
PROVIDERS: Admitting Provider Nurse Practitioner Acute Care; Emergency Provider Emergency Medicine; PCP Internal Medicine; Visit Provider Nurse Practitioner Acute Care
DX: I21.4 Non-ST elevation (NSTEMI) myocardial infarction (principal); I24.9 Acute ischemic heart disease, unspecified; R03.0 Elevated blood-pressure reading, without diagnosis of hypertension; N40.0 Benign prostatic hyperplasia without lower urinary tract symptoms; E78.5 Hyperlipidemia, unspecified; Z20.822 Contact with and (suspected) exposure to COVID-19; Z79.899 Other long term (current) drug therapy
CPT/HCPCS: 36415; 80048; 84484; 85025; 85027; 85610; 85730; 87635; 93005; 99285; J1643

== ENCOUNTER → 2022-07-14 08:22 | Outpatient (BNVA) | payer MEDICARE, SELFPAY | PROVIDERS: PCP Internal Medicine; Referring Provider Internal Medicine; Visit Provider Internal Medicine Cardiovascular Disease | DX: I25.10 Atherosclerotic heart disease of native coronary artery without angina pectoris (principal); I10 Essential (primary) hypertension; Z79.899 Other long term (current) drug therapy | CPT/HCPCS: 99212 ==

== ENCOUNTER → 2022-07-21 10:01 | Outpatient (REF) | payer MEDICARE, SELFPAY ==
--- NOTE | 2022-07-21 10:03 | CA_ITS ---
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 Study Quality: Fair Conclusions: - The left ventricular systolic function is normal. The calculated ejection fraction is 56% by biplane method. - There is mild calcification of the aortic valve. - There is mild mitral annular calcification. - No obvious valvular pathology seen on this study. Findings Left Ventricle Normal left ventricular cavity size. The left ventricular systolic function is normal. The calculated ejection fraction is 56% by biplane method. There is no evidence of regional wall motion abnormalities. Diastolic function is normal for age. There is mild septal asymmetric hypertrophy. Right Ventricle Normal right ventricular cavity size and systolic function. Atria Both atria are normal in size. Aortic Valve There is a normal trileaflet aortic valve. There is mild calcification of the aortic valve. There is no aortic valve stenosis. There is no aortic valve regurgitation. Mitral Valve The mitral valve appears normal. There is mild mitral annular calcification. There is no mitral valve regurgitation. There is no mitral valve stenosis. Pulmonic Valve The pulmonic valve is likely normal. Tricuspid Valve Normal tricuspid valve structure. There is trace tricuspid valve regurgitation. Tricuspid regurgitation envelope is inadequate for calculation of right ventricular systolic pressure. Great Vessels The asc aorta is normal in size. Venous The inferior vena cava is normal in size and collapses greater than 50% with inspiration. Pericardium/Pleural There is no evidence of pericardial effusion. Prior Study Comparison No prior study available for comparison. Recommendations, Care & Conclusions No obvious valvular pathology seen on this study. Measurements 2D Linear Measurements IVSd: 1.23 0.6-0.9/0.6-1.0 cm LVIDd: 4.49 3.9-5.3/4.2-5.9 cm LVIDd Index: 2.23 2.4-3.2/2.2-3.1 cm/m2 LVIDs: 2.97 2.0-3.6 cm LVPWd: 0.95 0.7-1.1 cm LA Diam: 3.40 2.7-3.8/3.0-4.0 cm LAIDs Index: 1.69 1.5-2.3 cm/m2 LV Mass: 214.89 67-162/88-224 g LV Mass Index: 106.91 43-95/49-115 g/m2 LVOT Diam: 2.10 3.0+(-)1.3 cm 2D Systolic Function EF 4C: 55.40 >55% EF 2C: 56.90 >55% EF BiP: 56.00 >55% Mitral Valve MV Pk E: 0.74 MV PK A: 0.69 MV Decel Time: 349.00 E/A: 1.10 E'Lateral: 7.29 E'Medial: 6.42 E/E' Med: 11.50 E/E' Lat: 10.10 PHT: 102.00 MVA PHT: 2.16 Decel Moore: 2.11 Aortic Valve AoV Pk Ezequiel: 1.29 AoV Mn Ezequiel: 0.86 AoV VTI: 0.31 AoV Pk Grad: 7.00 Aov Mn Grad: 3.00 JESSICA Cont.VTI: 2.97 LVOT LVOT Pk Ezequiel: 1.12 LVOT Mn Ezequiel: 0.71 LVOT VTI: 0.27 LVOT Pk Grad: 5.00 LVOT Mn Grad: 2.00 LVOT Diam: 2.10 LVOT Area: 3.46 Diastolic Function MV Pk E: 0.74 MV Pk A: 0.69 E/A: 1.10 E'Medial: 6.42 E/E' Med: 11.50 E' Laterial: 7.29 E/E' Lat: 10.10 Right Ventricle TAPSE (mm): 26.70 TVS' Ezequiel: 13.20 Tricuspid Valve RA Press: 3.00 Great Vessels Aorta Sinus of Valsalva: 3.74 2.0-3.[address] [place]: 2.65 1.7-3.4 cm Ao Asc: 3.40 2.1-3.4 cm Updated in Other Vendor System with Status of Final Srinivasan Gdooy MD electronically signed on 07/21/2022 4:37:14 PM with status of Final
== END ==
LOC: HO.CARD 10:01
PROVIDERS: Visit Provider Internal Medicine Cardiovascular Disease
DX: I25.10 Atherosclerotic heart disease of native coronary artery without angina pectoris (principal)
CPT/HCPCS: 93306

== ENCOUNTER 2022-08-02 04:15 | Emergency (ER) | payer MEDICARE, SELFPAY ==
--- NOTE | ~2022-08-02 | CT_ITS ---
EXAMINATION: CT ABDOMEN AND PELVIS WITH CONTRAST CLINICAL INFORMATION: Severe abdominal pain COMPARISON: None available. TECHNIQUE: Multidetector volumetric images were obtained from the superior aspect of the liver through the pubic symphysis following administration 85 mL of Omnipaque 350 intravenous contrast. Sagittal and coronal reformatted images were obtained on the technologist's workstation. Oral contrast: No This CT examination was performed using dose optimization techniques as appropriate, variously including the following: *Automated exposure control *Adjustment of mA and/or kV according to patient size (this includes techniques or standardized protocols for targeted exams where dose is matched to indication/reason for exam; i.e. extremities or head) *Use of iterative reconstruction technique DLP: 542 mGy-cm FINDINGS: LUNG BASES: The visualized lung bases are unremarkable. LIVER, GALLBLADDER, AND BILIARY TREE: The liver is normal in size, shape, and attenuation. No focal hepatic lesion or biliary ductal dilatation is present. Gallstones in the gallbladder lumen. No adjacent inflammatory changes are seen. PANCREAS: There is a 1.8 cm cyst at the pancreatic neck ventrally. No pancreatic ductal dilatation. SPLEEN: Unremarkable. ADRENAL GLANDS: Unremarkable. KIDNEYS AND URETERS: The kidneys are normal in size, shape, and attenuation. No hydronephrosis, hydroureter, or calculi seen. No perinephric stranding. Bilateral simple renal cysts. No specific follow-up recommended. BLADDER: Unremarkable. GASTROINTESTINAL TRACT: The stomach is unremarkable. Normal caliber small bowel. There is no obstruction. Normal appendix. No colonic wall thickening or acute inflammation. Prominent sigmoid diverticulosis. No diverticulitis. No free air or free fluid. ABDOMINAL WALL: Fat-containing bilateral inguinal hernias. LYMPH NODES: Normal. VASCULAR: There is an abdominal aortic aneurysm measuring 3.9 cm in AP dimension. Mild atherosclerotic calcification throughout. PELVIC VISCERA: The prostate and seminal vesicles are unremarkable. OSSEOUS STRUCTURES: No acute or suspicious osseous abnormality. Advanced degenerative change throughout the lumbar spine. CT/CT abdomen pelvis w IV con IMPRESSION: 1. No acute findings in the abdomen or pelvis. No inflammatory changes. 2. 3.9 cm abdominal aortic aneurysm. Based on published guidelines in J Am Sai Radiol 2013; 10(10):789-794 and J Vasc Surg. 2018; 67:2-77, the recommendation for an abdominal aortic aneurysm with diameter 3.5-3.9 cm is follow-up every 2 years. 3. 1.8 cm cyst at the pancreatic neck. This can be further evaluated with nonemergent MRI/MRCP. 4. Cholelithiasis without evidence of acute cholecystitis. 5. Prominent sigmoid diverticulosis without diverticulitis.
--- NOTE | ~2022-08-02 | US_ITS ---
EXAMINATION: US ABDOMEN LIMITED CLINICAL INFORMATION: Right upper quadrant pain. Cholecystitis.. COMPARISON: None available. TECHNIQUE: Real-time imaging of the right upper quadrant abdominal viscera. FINDINGS: LIVER: The liver is normal in size. The liver contour is normal. Parenchymal echogenicity is normal. No focal hepatic lesion. There is mild prominence of intrahepatic ducts. GALLBLADDER: There is echogenic stone measuring 2.9 x 1.0 x 2.6 cm. Gallbladder wall thickness measures 0.5 cm. There is echogenic bilaterally neck.. COMMON BILE DUCT: Normal in caliber measuring 0.7 cm in diameter. FREE FLUID: None. US/US abdomen limited IMPRESSION: Echogenic gallstone with mild gallbladder wall thickening. Mild hepatic ductal dilatation.
--- NOTE | 2022-08-02 04:19 | ECG_ITS ---
Test Reason : ABD Blood Pressure : / mmHG Vent. Rate : 055 BPM Atrial Rate : 055 BPM P-R Int : 210 ms QRS Dur : 086 ms QT Int : 444 ms P-R-T Axes : 082 063 -23 degrees QTc Int : 424 ms Sinus bradycardia with 1st degree A-V block Nonspecific ST and T wave abnormality Abnormal ECG When compared with ECG of 16-JUN-2022 15:45, Nonspecific T wave abnormality, worse in Inferior leads Nonspecific T wave abnormality now evident in Anterior leads Referred By: René Garcia Electronically Signed By:ANNABELLE BAPTISTE MD
[2022-08-02 04:47] VITALS: BP 131/71; PULSE 88; RESP 16; TEMP 36.6; O2SAT 98; BMI 26.5
[2022-08-02] MEDS: 0.9 % Sodium Chloride 250 ML 999 ML IV (05:06)
[2022-08-02] MEDS: ondansetron HCL 4 MG/2 ML VIAL IVPUSH (05:06)
[2022-08-02 05:11] LABS: MANUAL DIFF FLAG NO
[2022-08-02 05:12] LABS: Basophils Absolute Auto 0.1 X10*3/uL (0.0-0.2); Basophils Percent Auto 0.6 % (0-2); Eosinophils Absolute Auto 0.1 X10*3/uL (0.0-0.4); Eosinophils Percent Auto 1.2 % (0-4); Hematocrit 39.4 % (42.0-52.0); Hemoglobin 13.2 g/dl (14.0-18.0); Imm Gran Abs Auto 0.03 X10*3/uL (0.00-0.03); Imm Gran Pct Auto 0.3 % (0.0-0.4); Lymphocytes Absolute Auto 1.5 X10*3/uL (1.2-4.9); Lymphocytes Percent Auto 13.6 % (20-40); Mean Corpuscular HGB Conc 33.5 g/dl (31.0-36.0); Mean Corpuscular Hemoglobin 28.9 pg (27.0-33.0); Mean Corpuscular Volume 86.2 fL (80.0-98.0); Mean Platelet Volume 12.4 fL (9.4-12.4); Monocytes Absolute Auto 0.5 X10*3/uL (0.1-1.2); Monocytes Percent Auto 4.1 % (2-11); Neutrophils Percent Auto 80.2 % (45-73); Platelet Count 143 X10*3/uL (160-400); Red Blood Count 4.57 X10*6/uL (4.60-5.80); Red Cell Distribution Width 12.4 % (11.0-16.0); White Blood Count 11.2 X10*3/uL (4.8-10.8)
--- NOTE | 2022-08-02 05:14 | PC.NURSE ---
this rn placed 20 g IV in L AC. pt tolerated well. pt medicated according to mar. pt at bedside. blood work obtained and sent down to lab
[2022-08-02 05:22] LABS: Lactic Acid 0.6 mmol/L (0.5-2.0)
[2022-08-02 05:22] LABS: COVID-19 Test Negative (Negative); IDNOW Serial# 6674DD1D
[2022-08-02 05:30] LABS: Troponin-I High Sensitivity 9.3 ng/L (<3.5-35.0)
[2022-08-02 05:32] LABS: Alanine Aminotransferase 11 U/L (0-40); Albumin Level 3.7 g/dL (3.5-5.0); Alkaline Phosphatase 68 U/L (39-117); Anion Gap 15 (12-20); Aspartate Amino Transferase 15 U/L (5-37); Bilirubin Total 0.8 mg/dL (0.0-1.0); Blood Urea Nitrogen 21 mg/dL (9-16); Calcium 8.9 mg/dL (8.4-10.2); Carbon Dioxide 27 mmol/L (22-29); Chloride 106 mmol/L (96-108); Estimated Glomerular Filt Rate > 60; Glucose Random 154 mg/dL (60-115); Sodium 144 mmol/L (135-145); Total Protein 5.9 g/dL (6.5-8.0)
[2022-08-02] MEDS: iohexoL 350 MG/ML 100 ML INFUS..BTL 85 ML IV (06:07)
--- NOTE | 2022-08-02 06:42 | ED_ITS ---
HPI - Abdominal Pain General Chief Complaint: Nausea/Vomiting/Diarrhea Stated Complaint: severe abd pain,vomitting Time Seen by Provider: 08/02/22 06:36 Source: patient Limitations: no limitations History of Present Illness HPI narrative: 87 years old man presented to the ED chief complaint of upper abdominal pain nausea vomiting after the eating a seafood plate last night at the restaurant. Patient as history of hypertension he has history of coronary artery disease . The pain is localized in the epigastrium no radiation MD elicited complaint: abdominal pain Pertinent past history: other (CAD) Onset (ago): day(s) (1) Pain Consistency: constant Location: epigastric Severity: mild Quality: cramping Radiation: none Exacerbating factors: nothing Related Data Home Medications Medication Instructions Recorded Confirmed multivitamin 1 tab PO DAILY 06/16/22 08/02/22 atorvastatin 80 mg tablet 80 mg PO BEDTIME 08/02/22 08/02/22 clopidogrel 75 mg tablet 75 mg PO DAILY@1200 08/02/22 08/02/22 finasteride 5 mg tablet 5 mg PO DAILY@1200 08/02/22 08/02/22 Previous Rx's Medication Instructions Recorded aspirin 81 mg tablet,delayed 81 mg PO DAILY #90 tabs 07/14/22 release (Adult Low Dose Aspirin) carvedilol 3.125 mg tablet 3.125 mg PO BID #180 tabs 07/14/22 lisinopril 5 mg tablet 5 mg PO DAILY #90 tabs 07/14/22 Allergies Allergy/AdvReac Type Severity Reaction Status Date / Time No Known Allergies Allergy Verified 06/16/22 10:09 [No Known Allergies*] Review of Systems Review of Systems Yes all other systems are reviewed and are negative Reports system reviewed and no additional complaints, except as documented Cardiovascular: Reports no additional cardiovascular complaints Reports system reviewed and no additional complaints, except as documented PMF Past Medical History Medical History Acute coronary syndrome BPH w urinary obs/LUTS CAD (coronary artery disease) Elevated PSA HTN (hypertension) HTN (hypertension) Phimosis Prostate nodule Surgical History History of tonsillectomy Stented coronary artery Family History Family History Father Prostate cancer Diabetes Mother Heart attack Social History Social History Alcohol intake: current Alcohol intake frequency: holidays/special occasions only Patient Tobacco Use Status: Former Tobacco user Smoked in Last 30 Days: No Use of substances other than those prescribed or required for medical reasons: No Advance Directives: No Advance Directives Information Provided: Yes Physical Exam ED Vital Signs: Vital Signs - 24 hr 08/02/22 04:47 08/02/22 07:17 08/02/22 11:11 Temperature 97.8 F 97.7 F Pulse Rate 88 64 70 Respiratory Rate 16 18 18 Blood Pressure 131/71 167/69 H 127/84 Pulse Oximetry 98 95 94 Oxygen Delivery Method Room Air Room Air Room Air BMI result Body Mass Index 26.5 Const General: cooperative Nutritional Appearance: well nourished HENMT Head: Yes normal to inspection General nose exam: Normal external nose present Face and sinus: Yes normal facial exam Mouth: Normal oral and palatal mucosa present Throat: Yes posterior oropharynx normal Neck Neck: Yes normal visual inspection and Yes full ROM Resp Effort & Inspection: normal respiratory effort Auscultation: clear to auscultation bilaterally Cardio Jugular venous distension: no JVD Rate: regular rate Rhythm: regular rhythm GI Inspection: Yes normal to inspection Palpation (GI): Soft to palpation and Tenderness to palpation present (GI) (There is tenderness in the epigastric) Auscultation: normal bowel sounds Course Reevaluation(s) Reevaluation #1: Patient is pain-free at this time, I discussed the case with the surgeon Dr. Hatch is reasonable to discharge the patient home Dr. Hatch will see him Thursday. Shared decision making with pt discussed admission vs d/c with surgery follow up pt wants to go home Medical Decision Making Medical Decision Making MDM Narrative: Patient presented with upper abdominal pain nausea vomiting will get labs/CT abdomen/administered fluids analgesia and reassessed this time is vital signs stable is not toxic-appearing Differential Diagnosis Differential Diagnoses: The differential diagnosis associated with the presentation includes Gastroenteritis dehydration/peptic ulcer disease acute cholecystitis Admission/Observation Consideration of admission/observation: Escalation of care including admission/observation considered Patient preferred to go home he is feeling better at the time of discharge Consult Healthcare Provider Management of the patient was discussed with: [employer] General Sales Manager I discussed the case with the surgeon Dr Hatch Lab Data MDM Lab Attestation statement: I reviewed the patient's lab results. 08/02/22 05:04 08/02/22 05:04 Labs: Lab Results 08/02/22 08/02/22 08/02/22 Range/Units 05:02 05:04 05:04 WBC 11.2 H (4.8-10.8) X10*3/uL RBC 4.57 L (4.60-5.80) X10*6/uL Hgb 13.2 L (14.0-18.0) g/dl Hct 39.4 L (42.0-52.0) % MCV 86.2 (80.0-98.0) fL MCH 28.9 (27.0-33.0) pg MCHC 33.5 (31.0-36.0) g/dl RDW 12.4 (11.0-16.0) % Plt Count 143 L (160-400) X10*3/uL MPV 12.4 (9.4-12.4) fL Immature Gran % (Auto) 0.3 (0.0-0.4) % Neut % (Auto) 80.2 H (45-73) % Lymph % (Auto) 13.6 L (20-40) % Hopkins % (Auto) 4.1 (2-11) % Eos % (Auto) 1.2 (0-4) % Baso % (Auto) 0.6 (0-2) % Lymph # (Auto) 1.5 (1.2-4.9) X10*3/uL Hopkins # (Auto) 0.5 (0.1-1.2) X10*3/uL Eos # (Auto) 0.1 (0.0-0.4) X10*3/uL Baso # (Auto) 0.1 (0.0-0.2) X10*3/uL Abs Immat Gran (auto) 0.03 (0.00-0.03) X10*3/uL Absolute Neuts (auto) 9.0 H (2.0-8.3) x10*3/uL Absolute Nucleated RBC 0.000 (0.0-0.012) X10*3/uL Nucleated RBC % (auto) 0.0 (0.0-0.2) /100WBC Sodium 144 (135-145) mmol/L Potassium 4.0 (3.3-5.1) mmol/L Chloride 106 (96-108) mmol/L Carbon Dioxide 27 (22-29) mmol/L Anion Gap 15 (12-20) BUN 21 H (9-16) mg/dL Creatinine 0.96 (0.5-1.4) mg/dL Estim Creat Clear Calc 58.0 Estimated GFR > 60 Random Glucose 154 H (60-115) mg/dL Lactic Acid (0.5-2.0) mmol/L Calcium 8.9 (8.4-10.2) mg/dL Total Bilirubin 0.8 (0.0-1.0) mg/dL AST 15 (5-37) U/L ALT 11 (0-40) U/L Alkaline Phosphatase 68 (39-117) U/L Troponin I High Sens (<3.5-35.0) ng/L Total Protein 5.9 L (6.5-8.0) g/dL Albumin 3.7 (3.5-5.0) g/dL Urine Color Urine Appearance Urine pH (5.0-9.0) Ur Specific [place] (1.005-1.025) Urine Protein (Neg-Trace) mg/dL Urine Glucose (UA) (Negative) mg/dL Urine Ketones (Negative) mg/dL Urine Blood (Negative) Urine Nitrite (Negative) Ur Leukocyte Esterase (Negative) Urine RBC (0-2) /HPF Urine WBC (0-5) /HPF Ur Squamous Epith Cells (0-2) /HPF Urine Bacteria (None Seen) Hyaline Casts (0-2) /LPF COVID-19 ([facility]) Negative (Negative) COVID-19 Clin Com See Note 08/02/22 08/02/22 08/02/22 Range/Units 05:04 05:04 07:23 WBC (4.8-10.8) X10*3/uL RBC (4.60-5.80) X10*6/uL Hgb (14.0-18.0) g/dl Hct (42.0-52.0) % MCV (80.0-98.0) fL MCH (27.0-33.0) pg MCHC (31.0-36.0) g/dl RDW (11.0-16.0) % Plt Count (160-400) X10*3/uL MPV (9.4-12.4) fL Immature Gran % (Auto) (0.0-0.4) % Neut % (Auto) (45-73) % Lymph % (Auto) (20-40) % Hopkins % (Auto) (2-11) % Eos % (Auto) (0-4) % Baso % (Auto) (0-2) % Lymph # (Auto) (1.2-4.9) X10*3/uL Hopkins # (Auto) (0.1-1.2) X10*3/uL Eos # (Auto) (0.0-0.4) X10*3/uL Baso # (Auto) (0.0-0.2) X10*3/uL Abs Immat Gran (auto) (0.00-0.03) X10*3/uL Absolute Neuts (auto) (2.0-8.3) x10*3/uL Absolute Nucleated RBC (0.0-0.012) X10*3/uL Nucleated RBC % (auto) (0.0-0.2) /100WBC Sodium (135-145) mmol/L Potassium (3.3-5.1) mmol/L Chloride (96-108) mmol/L Carbon Dioxide (22-29) mmol/L Anion Gap (12-20) BUN (9-16) mg/dL Creatinine (0.5-1.4) mg/dL Estim Creat Clear Calc Estimated GFR Random Glucose (60-115) mg/dL Lactic Acid 0.6 (0.5-2.0) mmol/L Calcium (8.4-10.2) mg/dL Total Bilirubin (0.0-1.0) mg/dL AST (5-37) U/L ALT (0-40) U/L Alkaline Phosphatase (39-117) U/L Troponin I High Sens 9.3 D (<3.5-35.0) ng/L Total Protein (6.5-8.0) g/dL Albumin (3.5-5.0) g/dL Urine Color Yellow Urine Appearance Clear Urine pH 8.0 (5.0-9.0) Ur Specific [place] 1.025 (1.005-1.025) Urine Protein Negative (Neg-Trace) mg/dL Urine Glucose (UA) Negative (Negative) mg/dL Urine Ketones Negative (Negative) mg/dL Urine Blood Negative (Negative) Urine Nitrite Negative (Negative) Ur Leukocyte Esterase Small (1+) H (Negative) Urine RBC 0-2 (0-2) /HPF Urine WBC 6-10 H (0-5) /HPF Ur Squamous Epith Cells 0-2 (0-2) /HPF Urine Bacteria None Seen (None Seen) Hyaline Casts 0-2 (0-2) /LPF COVID-19 ([facility]) (Negative) COVID-19 Clin Com Independent Interpretation I performed an independent interpretation of an: Ultrasound Radiology Impression Discussion of test interpretation with radiology: I have reviewed the radiologist's reading. Radiologist Impression: iscera. FINDINGS: LIVER:? The liver is normal in size. The liver contour is normal. Parenchymal echogenicity is normal. No focal hepatic lesion. There is mild prominence of intrahepatic ducts. GALLBLADDER:? There is echogenic stone measuring 2.9 x 1.0 x 2.6 cm. Gallbladder wall thickness measures 0.5 cm. There is echogenic bilaterally neck.. COMMON BILE DUCT: Normal in caliber measuring 0.7 cm in diameter. FREE FLUID: None. US/US abdomen limited IMPRESSION: Echogenic gallstone with mild gallbladder wall thickening. ? Mild hepatic ductal dilatation. Dictated By: Quentin Hurtado MD Signed By: <Electronically signed by Quentin Hurtado MD in OV> 08/02/22 1008 DD/ 0938 TD/TT:? Spinneret Person: MSM Medications Administered Discontinued Medications Generic Name Dose Route Start Last Admin Trade Name Freq PRN Reason Stop Dose Admin Famotidine 20 mg 08/02/22 06:41 08/02/22 07:12 Famotidine/Pf 20 Mg/2 Ml Vial IVPUSH 08/02/22 06:42 20 mg ONCE ONE Administration Sodium Chloride 250 mls @ 999 mls/hr 08/02/22 04:30 08/02/22 05:33 Ns IV 08/02/22 04:45 Infused .Q16M RODDY Infusion Sodium Chloride 1,000 mls @ 999 mls/hr 08/02/22 06:45 08/02/22 09:13 Ns IVCONT 08/02/22 07:45 Infused .Q1H1M RODDY Infusion Iohexol 85 ml 08/02/22 06:06 08/02/22 06:07 Iohexol 350 Mg/Ml 100 Ml Infus..Btl IV 08/02/22 06:07 85 ml ONCE ONE Administration Ketorolac Tromethamine 15 mg 08/02/22 08:48 08/02/22 09:12 Ketorolac Tromethamine 15 Mg/Ml Vial IVPUSH 08/02/22 08:49 15 mg ONCE ONE Administration Morphine Sulfate 4 mg 08/02/22 06:40 08/02/22 07:11 Morphine Sulfate 4 Mg/Ml Cartridge IVPUSH 08/02/22 06:41 4 mg ONCE ONE Administration Protocol Ondansetron HCl 4 mg 08/02/22 04:19 08/02/22 05:06 Ondansetron Hcl 4 Mg/2 Ml Vial IVPUSH 08/02/22 04:20 4 mg ONCE ONE Administration Discharge Plan Discharge Clinical Impression: Biliary colic Patient Disposition: Home, Self-Care Instructions: Biliary Colic (ED), Gallstones (ED) Additional Instructions: Follow-up with Dr. Hatch on Thursday,return if worse,vomioting,stay on liquid diet Prescriptions: No Action multivitamin Tablet 1 tab PO DAILY atorvastatin 80 mg tablet 80 mg PO BEDTIME clopidogrel 75 mg tablet 75 mg PO DAILY@1200 finasteride 5 mg tablet 5 mg PO DAILY@1200 carvedilol 3.125 mg tablet 3.125 mg PO BID Qty: 180 1RF lisinopril 5 mg tablet 5 mg PO DAILY Qty: 90 1RF aspirin [Adult Low Dose Aspirin] 81 mg tablet,delayed release (DR/EC) 81 mg PO DAILY Qty: 90 1RF Referrals: Chad Hatch MD [Physician] - 2 days Interventions: ED Discharge Assessment Last Done: 08/02/22 11:19 Discharge Date/Time: 08/02/22 11:22
[2022-08-02] MEDS: 0.9 % Sodium Chloride 1,000 ML 999 ML IVCONT (07:10)
[2022-08-02] MEDS: Morphine Sulfate 4 MG/ML CARTRIDGE IVPUSH (07:11)
[2022-08-02] MEDS: Famotidine/PF 20 MG/2 ML VIAL IVPUSH (07:12)
[2022-08-02 07:17] VITALS: BP 167/69; PULSE 64; RESP 18; O2SAT 95
--- NOTE | 2022-08-02 07:20 | PC.NURSE ---
Patient resting on stretcher at this time, calm and cooperative. Patient complaining of abdominal pain that started approximately 1230 this morning. Patient medicated per JUL. Awaiting CT results at this time
[2022-08-02 07:32] LABS: Appearance Urine Clear; Color Urine Yellow; Glucose Urine UA Negative (Negative); Leukocyte Esterase Urine Small (1+) (Negative); Nitrite Urine Negative (Negative); Specific Gravity - Urine 1.025 (1.005-1.025); UMIC TRIGGER UACC YES; Urine Blood Negative (Negative); Urine Ketones Negative (Negative); Urine Protein Negative (Neg-Trace)
[2022-08-02 07:38] LABS: Bacteria Urine None Seen (None Seen); Hyaline Casts Urine 0-2 /LPF (0-2); RBC Urine 0-2 /HPF (0-2); Squamous Epithelial Cell Urine 0-2 /HPF (0-2); UACC Culture Trigger YES
--- NOTE | 2022-08-02 09:08 | PHA.MEDREC ---
Pharmacy Consult ? Medication Reconciliation Pharmacy has completed the medication reconciliation. Spoke to patient to confirm medications.
[2022-08-02] MEDS: Ketorolac Tromethamine 15 MG/ML VIAL IVPUSH (09:12)
[2022-08-02 11:11] VITALS: BP 127/84; PULSE 70; RESP 18; TEMP 36.5; O2SAT 94
== END 2022-08-02 11:22 | disposition home or self-care (01) ==
PROVIDERS: Emergency Medicine; Emergency Provider Emergency Medicine; PCP Internal Medicine
DX: K80.20 Calculus of gallbladder without cholecystitis without obstruction (principal); Z20.822 Contact with and (suspected) exposure to COVID-19; K57.30 Diverticulosis of large intestine without perforation or abscess without bleeding; K86.2 Cyst of pancreas; I10 Essential (primary) hypertension; E78.5 Hyperlipidemia, unspecified; Z79.899 Other long term (current) drug therapy; Z79.02 Long term (current) use of antithrombotics/antiplatelets
CPT/HCPCS: 74177; 76705; 80053; 81001; 83605; 84484; 85025; 87086; 87635; 93005; 96361; 96374; 96375; 99284; 99285; J1885; J2270; J2405; Q9967

== ENCOUNTER → 2022-08-06 09:25 | Outpatient (BNVA) | payer MEDICARE, SELFPAY | PROVIDERS: PCP Internal Medicine; Visit Provider Surgery | DX: K80.50 Calculus of bile duct without cholangitis or cholecystitis without obstruction (principal) | CPT/HCPCS: 99202 ==

== ENCOUNTER → 2022-08-18 14:28 | Outpatient (BNVA) | payer MEDICARE, SELFPAY | PROVIDERS: PCP Internal Medicine; Visit Provider Surgery | DX: K80.20 Calculus of gallbladder without cholecystitis without obstruction (principal) | CPT/HCPCS: 99212 ==

== ENCOUNTER 2022-09-04 08:54 | Outpatient (REF) | payer MEDICARE, SELFPAY ==
[2022-09-04 11:30] LABS: MANUAL DIFF FLAG NO
[2022-09-04 11:47] LABS: Basophils Absolute Auto 0.1 X10*3/uL (0.0-0.2); Basophils Percent Auto 0.8 % (0-2); Eosinophils Absolute Auto 0.4 X10*3/uL (0.0-0.4); Eosinophils Percent Auto 4.4 % (0-4); Hemoglobin 12.8 g/dl (14.0-18.0); Imm Gran Abs Auto 0.03 X10*3/uL (0.00-0.03); Imm Gran Pct Auto 0.3 % (0.0-0.4); Lymphocytes Absolute Auto 2.3 X10*3/uL (1.2-4.9); Lymphocytes Percent Auto 24.7 % (20-40); Mean Corpuscular Hemoglobin 28.8 pg (27.0-33.0); Mean Corpuscular Volume 89.9 fL (80.0-98.0); Mean Platelet Volume 13.5 fL (9.4-12.4); Monocytes Absolute Auto 0.7 X10*3/uL (0.1-1.2); Monocytes Percent Auto 7.2 % (2-11); Neutrophils Absolute Auto 5.7 x10*3/uL (2.0-8.3); Neutrophils Percent Auto 62.6 % (45-73); Platelet Count 155 X10*3/uL (160-400); Red Blood Count 4.45 X10*6/uL (4.60-5.80); White Blood Count 9.2 X10*3/uL (4.8-10.8)
[2022-09-04 11:48] LABS: Alanine Aminotransferase 10 U/L (0-40); Albumin Level 3.6 g/dL (3.5-5.0); Alkaline Phosphatase 69 U/L (39-117); Anion Gap 10 (12-20); Aspartate Amino Transferase 12 U/L (5-37); Bilirubin Total 0.8 mg/dL (0.0-1.0); Blood Urea Nitrogen 22 mg/dL (9-16); Calcium 8.9 mg/dL (8.4-10.2); Carbon Dioxide 31 mmol/L (22-29); Chloride 108 mmol/L (96-108); Cholesterol 151 mg/dL; Estimated Glomerular Filt Rate > 60; Glucose Fasting 101 mg/dL (60-99); HDL Cholesterol 34 mg/dL; LDL Cholesterol Calculated 102 mg/dl; Potassium 4.6 mmol/L (3.3-5.1); Sodium 144 mmol/L (135-145); Total Protein 5.8 g/dL (6.5-8.0); Triglycerides 79 mg/dL
[2022-09-04 12:36] LABS: Prostate Specific Antigen 4.59 ng/mL (<0.05-4.0)
== END 2022-09-04 08:55 | disposition home or self-care (01) ==
LOC: HO.10HDL 08:54
PROVIDERS: PCP Internal Medicine; Visit Provider Urology
DX: Z12.5 Encounter for screening for malignant neoplasm of prostate (principal); I25.10 Atherosclerotic heart disease of native coronary artery without angina pectoris; J44.9 Chronic obstructive pulmonary disease, unspecified; E78.00 Pure hypercholesterolemia, unspecified; I10 Essential (primary) hypertension; R97.20 Elevated prostate specific antigen [PSA]
CPT/HCPCS: 36415; 80053; 80061; 84153; 85025

== ENCOUNTER 2022-09-08 07:53 | Day surgery (SDC) | payer MEDICARE, SELFPAY ==
[2022-09-03 12:17] VITALS: BP 160/75; PULSE 50; RESP 16; O2SAT 95; BMI 26.5
--- NOTE | 2022-09-03 12:44 | P.CONAN_ITS ---
Documented by User: Licha Umaña NP 09/03/22 13:07 HPI - Anesthesia Eval Consult details Narrative: 87yo M for Cholecystectomy Laparoscopic s/p AL with cath and stent 06/2022. Pt to remain on full DAPT periop per Dr Ward. Confirmed with Dr Hatch via [employer] Pt denies CP. BARROW at baseline. >4 mets PMFSH Active Problems Active Problems: All Active Problems (Updated 09/03/22 @ 12:36 by Shadia Mazariegos RN) Weak urinary stream (Acute) Cholelithiasis (Acute) CAD (coronary artery disease) (Acute) HTN (hypertension) (Acute) Past Medical History Medical History (Updated 09/03/22 @ 12:36 by Shadia Mazariegos RN) Acute coronary syndrome BPH w urinary obs/LUTS CAD (coronary artery disease) Elevated cholesterol Elevated PSA Former smoker HTN (hypertension) HTN (hypertension) Phimosis Prostate nodule SOB (shortness of breath) on exertion Family History Family History Father Prostate cancer Diabetes Mother Heart attack Surgical History Surgical History (Updated 09/03/22 @ 12:09 by Shadia Mazariegos RN) History of tonsillectomy Hx of colonoscopy Stented coronary artery Social History Social History Are you a primary home care nurse to a significant other at home: No Do you presently have visiting nurse or other home services: No Alcohol intake: current Alcohol intake frequency: holidays/special occasions only Patient Tobacco Use Status: Former Tobacco user Quit Date: 2013 Tobacco use type: Cigarette Years Smoked: 62 Use of substances other than those prescribed or required for medical reasons: No Have you been hit, kicked, punched, or otherwise hurt by someone within the past year? If so, by whom?: No Are you DNR?: No Advance Directives: No (Will bring DOS) Advance Directives Information Provided: Yes Advance Directives on File: No Recently lost weight without trying: No Nutrition Risks: Surgical patient >75years Narrative Narrative: No recent illness No CP with > 4 mets, BARROW at baseline Meds Allergies Allergy/AdvReac Type Severity Reaction Status Date / Time No Known Allergies Allergy Verified 09/03/22 12:16 [No Known Allergies*] Home Medications Medication Instructions Recorded Confirmed Last Taken Type multivitamin 1 tab PO DAILY 06/16/22 09/03/22 09/07/22 History atorvastatin 80 mg tablet 80 mg PO BEDTIME 08/02/22 09/03/22 09/07/22 History clopidogrel 75 mg tablet 75 mg PO .DAILY@NOON 08/02/22 09/03/22 09/07/22 History finasteride 5 mg tablet 5 mg PO .DAILY@NOON 08/02/22 09/03/22 09/07/22 History aspirin 81 mg tablet,delayed 81 mg PO .DAILY@NOON 09/03/22 09/03/22 09/07/22 History release (Adult Low Dose Aspirin) lisinopril 5 mg tablet 5 mg PO .DAILY@NOON 09/03/22 09/03/22 09/07/22 History Exam Exam Date and Time: September 03, 2022 1244 Height,Weight and Vital Signs: Height 5 ft 10 in Weight 83.9 kg Last Vital Signs Pulse 50 09/03/22 12:17 Resp 16 09/03/22 12:17 BP 160/75 H 09/03/22 12:17 Pulse Ox 95 09/03/22 12:17 O2 Del Method Room Air 09/03/22 12:17 Narrative Narrative: EKG 07/2022 Vent. Rate : 055 BPM ? ? Atrial Rate : 055 BPM ?? P-R Int : 210 ms? QRS Dur : 086 ms ? ? QT Int : 444 ms ? ? ? P-R-T Axes : 082 063 -23 degrees ?? QTc Int : 424 ms ? Sinus bradycardia with 1st degree A-V block Nonspecific ST and T wave abnormality Abnormal ECG When compared with ECG of 16-JUN-2022 15:45, Nonspecific T wave abnormality, worse in Inferior leads Nonspecific T wave abnormality now evident in Anterior leads Airway Mallampati Class: II TM Dist: >3cm Neck ROM: Full Denture: Upper and Lower Heart: RRR Lungs: CTAB Assessment and Plan Assessment Anesthesia Assessment: Anesthesia Plan Discussed and PAT Visit Documented by User: Cara Rashid MD 09/08/22 08:58 [facility] Past Medical History Medical History (Updated 09/03/22 @ 12:36 by Shadia Mazariegos, RN) Acute coronary syndrome BPH w urinary obs/LUTS CAD (coronary artery disease) Elevated cholesterol Elevated PSA Former smoker HTN (hypertension) HTN (hypertension) Phimosis Prostate nodule SOB (shortness of breath) on exertion Family History Family History Father Prostate cancer Diabetes Mother Heart attack Family history of problems with anesthesia: No Surgical History Surgical History (Updated 09/03/22 @ 12:09 by Shadia Mazariegos RN) History of tonsillectomy Hx of colonoscopy Stented coronary artery History of Problems with Anesthesia: No Social History Social History Are you a primary home care nurse to a significant other at home: No Do you presently have visiting nurse or other home services: No Alcohol intake: current Alcohol intake frequency: holidays/special occasions on ly Patient Tobacco Use Status: Former Tobacco user Quit Date: 2013 Tobacco use type: Cigarette Years Smoked: 62 Use of substances other than those prescribed or required for medical reasons: No Have you been hit, kicked, punched, or otherwise hurt by someone within the past year? If so, by whom?: No Are you DNR?: No Advance Directives: No (Will bring DOS) Advance Directives Information Provided: Yes Advance Directives on File: No Recently lost weight without trying: No Nutrition Risks: Surgical patient >75years Meds Allergies Allergy/AdvReac Type Severity Reaction Status Date / Time No Known Allergies Allergy Verified 09/03/22 12:16 [No Known Allergies*] Home Medications Medication Instructions Recorded Confirmed Last Taken Type multivitamin 1 tab PO DAILY 06/16/22 09/03/22 09/07/22 History atorvastatin 80 mg tablet 80 mg PO BEDTIME 08/02/22 09/03/22 09/07/22 History clopidogrel 75 mg tablet 75 mg PO .DAILY@NOON 08/02/22 09/03/22 09/07/22 History finasteride 5 mg tablet 5 mg PO .DAILY@NOON 08/02/22 09/03/22 09/07/22 History aspirin 81 mg tablet,delayed 81 mg PO .DAILY@NOON 09/03/22 09/03/22 09/07/22 History release (Adult Low Dose Aspirin) lisinopril 5 mg tablet 5 mg PO .DAILY@NOON 09/03/22 09/03/22 09/07/22 History Assessment and Plan Assessment Anesthesia Assessment: Chart Reviewed (pt on full dose blood thinners, team aware, laparoscopic only) Final Anesthetic Review Family History of Problems with Anesthesia: No History of Problems with Anesthesia: No NPO: Yes ASA Class: III Final Preanesthetic Review: No Changes in Pt Med Stat, Meds/Allgs Chart Reviewed and Consent Obtained/Reviewed Patient Risk: Intermediate Procedure Risk: Intermediate Anesthetic Plan Anesthetic Plan: GA
[2022-09-08] VITALS (9 sets, daily range): BP systolic 134–149; BP diastolic 58–71; PULSE 50–61; RESP 14–18; TEMP 36.1; O2SAT 91–99; BMI 25.8
--- NOTE | 2022-09-08 05:50 | MHC.SHP ---
Pre-Procedural Eval Section A Date of Service: 09/08/22 The patient is an INPATIENT: No Changes since office visit: No Cold of Flu in the past 2 weeks, No New Medical Problems, No Changes in Medication and No Patient answered all questions The History & Physical has been completed within 30 days and I have reviewed it.: Yes Section B Chief Complaint: Calculus of gallbladder without cholecystitis Allergies: Allergies Allergy/AdvReac Type Severity Reaction Status Date / Time No Known Allergies Allergy Verified 09/03/22 12:16 [No Known Allergies*] Plan I have reviewed the history and physical and performed a pertinent physical examination on my patient. No changes have occurred unless specified. Time Spent With Patient Time: Total time managing care of this patient today ____ minutes.
[2022-09-08] MEDS: Lactated Ringers 1,000 ML 100 ML IVCONT (08:38)
--- NOTE | 2022-09-08 09:57 | P.OP_ITS ---
Operative Note Operative Note Date of Service: 09/08/22 Narrative: Preoperative diagnosis: [] Recurring bouts of biliary colic and acute cholecystitis Postop diagnosis: [] Same Procedure [] laparoscopic cholecystectomy Surgeon: [] Holden Flange Machine Operator: [] nati Whitten Type of Anesthesia: [] General Indication for surgery: [] Gallbladder with soft omental adhesions to it. Multiple large gallstones in the gallbladder Findings: [] Patient is brought to the operating room, placed on the operating table in a supine position, and after an adequate level of general anesthesia was induced, the patient's abdomen was prepped and draped in usual sterile fashion. Using a supraumbilical curvilinear incision, Amaro technique was used to insufflate the abdominal cavity to 15 mm CO2. Upper midline and right subcostal ports were placed under laparoscopic view, and the patient was placed in reverse Trendelenburg position, and tilted to the left. The hilum was approached where the cystic artery and cystic duct were each Circumferentially skeletonized, and each traced directly into the gallbladder and critical view obtained. Each was clipped proximally x2, distally x1, and transected. Gallbladder which was moderately intrahepatic was then cauterized from the gallbladder fossa using Bovie. Specimen was placed in an Endo-Catch bag, retrieved through the umbilical port. The abdominal cavity was very copiously irrigated and assiduously secured hemostasis several times. All ports removed under direct laparoscopic view. Wounds were closed in the following manner; umbilical wound has fascia reapproximated using interrupted 0 Vicryl sutures. Skin was closed using subcuticular 3-0 Vicryl sutures followed by Steri-Strips and sterile dressings. Wounds were infiltrated with 0.5% Marcaine at completion. Sponge, needle, and instrument counts were reported to be correct. Patient tolerated the procedure well emerge from anesthesia stable condition. EBL minimal
[2022-09-08] MEDS: oxyCODONE HCl Immed Release 5 MG TABLET PO (10:43)
== END 2022-09-08 12:03 | disposition home or self-care (01) ==
PROVIDERS: PCP Internal Medicine; Visit Provider Surgery
PROC: 0FT44ZZ Resection of Gallbladder, Percutaneous Endoscopic Approach (ICD-10-PCS; CPT 47562; principal; 2022-09-08 09:30)
DX: K80.12 Calculus of gallbladder with acute and chronic cholecystitis without obstruction (principal); I25.10 Atherosclerotic heart disease of native coronary artery without angina pectoris; I10 Essential (primary) hypertension; Z79.02 Long term (current) use of antithrombotics/antiplatelets; Z79.82 Long term (current) use of aspirin
CPT/HCPCS: 47562; 86850; 86900; 86901; 88304; J0131; J0690; J1100; J2405; J2795; J3010

== ENCOUNTER → 2022-09-16 10:14 | Outpatient (BNVA) | payer MEDICARE, SELFPAY | PROVIDERS: PCP Internal Medicine; Visit Provider Surgery | DX: Z48.815 Encounter for surgical aftercare following surgery on the digestive system (principal); Z87.19 Personal history of other diseases of the digestive system | CPT/HCPCS: 99212 ==

== ENCOUNTER → 2022-10-02 09:58 | Outpatient (BNVA) | payer MEDICARE, SELFPAY ==
[2022-09-25 13:21] VITALS: BP 130/60; BP 134/60; BP 148/62; BMI 26.0
== END ==
PROVIDERS: PCP Internal Medicine; Visit Provider Urology
DX: N40.2 Nodular prostate without lower urinary tract symptoms (principal); N40.1 Benign prostatic hyperplasia with lower urinary tract symptoms; N13.8 Other obstructive and reflux uropathy; R97.20 Elevated prostate specific antigen [PSA]
CPT/HCPCS: 99212

== ENCOUNTER → 2022-10-14 09:41 | Outpatient (BNVA) | payer MEDICARE, SELFPAY ==
[2022-09-25 13:21] VITALS: BP 130/60; BP 134/60; BP 148/62; BMI 26.0
== END ==
PROVIDERS: PCP Internal Medicine; Referring Provider Internal Medicine; Visit Provider Internal Medicine Cardiovascular Disease
DX: I25.10 Atherosclerotic heart disease of native coronary artery without angina pectoris (principal); I10 Essential (primary) hypertension
CPT/HCPCS: 99212

== ENCOUNTER 2022-10-20 10:41 | Outpatient (REF) | payer MEDICARE, SELFPAY ==
[2022-09-25 13:21] VITALS: BP 130/60; BP 134/60; BP 148/62; BMI 26.0
[2022-10-20 13:31] LABS: Anion Gap 11 (12-20); Blood Urea Nitrogen 22 mg/dL (9-16); C Reactive Protein 0.39 mg/dL (< or = 0.50); Calcium 9.4 mg/dL (8.4-10.2); Carbon Dioxide 31 mmol/L (22-29); Chloride 106 mmol/L (96-108); Estimated Glomerular Filt Rate > 60; Glucose Random 92 mg/dL (60-115); Potassium 5.2 mmol/L (3.3-5.1); Sodium 143 mmol/L (135-145)
[2022-10-20 13:55] LABS: B Type Natriuretic Peptide 65 pg/mL (<100)
== END 2022-10-20 10:42 | disposition home or self-care (01) ==
LOC: HO.10HDL 10:41
PROVIDERS: Visit Provider Internal Medicine
DX: I25.10 Atherosclerotic heart disease of native coronary artery without angina pectoris (principal); I10 Essential (primary) hypertension
CPT/HCPCS: 36415; 80048; 83880; 86140

== ENCOUNTER 2022-11-04 04:37 | Emergency (ER) | payer MEDICARE, SELFPAY ==
[2022-09-25 13:21] VITALS: BP 134/60; BP 148/62
[2022-10-22 10:44] VITALS: BP 130/60; BMI 25.7
--- NOTE | 2022-11-04 | ECG_ITS ---
Test Reason : CP SOB Blood Pressure : / mmHG Vent. Rate : 053 BPM Atrial Rate : 053 BPM P-R Int : 196 ms QRS Dur : 078 ms QT Int : 452 ms P-R-T Axes : 054 059 008 degrees QTc Int : 424 ms Sinus bradycardia Otherwise normal ECG When compared with ECG of 02-AUG-2022 04:30, Nonspecific T wave abnormality no longer evident in Anterolateral leads Referred By: Generic ED Physician Electronically Signed By:Bryan Barros
--- NOTE | ~2022-11-04 | XR_ITS ---
EXAMINATION: XR CHEST CLINICAL INFORMATION: Shortness of breath COMPARISON: None available. TECHNIQUE: Frontal view of the chest was obtained. FINDINGS: Lung volumes are symmetric. No focal consolidation is seen. No evidence of pneumothorax, pleural effusion, or pulmonary edema. Cardiac size is within normal limits. Calcification is present at the aortic arch. No acute osseous findings are seen. XR/XR chest 1V IMPRESSION: No acute cardiopulmonary findings.
[2022-11-04 04:42] VITALS: BP 177/75; PULSE 57; RESP 24; TEMP 36.3; O2SAT 89; BMI 25.8
[2022-11-04 05:07] LABS: Basophils Absolute Auto 0.1 X10*3/uL (0.0-0.2); Basophils Percent Auto 0.7 % (0-2); Eosinophils Absolute Auto 0.5 X10*3/uL (0.0-0.4); Eosinophils Percent Auto 5.7 % (0-4); Hematocrit 38.1 % (42.0-52.0); Hemoglobin 12.6 g/dl (14.0-18.0); Imm Gran Abs Auto 0.02 X10*3/uL (0.00-0.03); Imm Gran Pct Auto 0.2 % (0.0-0.4); Lymphocytes Absolute Auto 2.3 X10*3/uL (1.2-4.9); Lymphocytes Percent Auto 26.4 % (20-40); MANUAL DIFF FLAG NO; Mean Corpuscular HGB Conc 33.1 g/dl (31.0-36.0); Mean Corpuscular Hemoglobin 29.4 pg (27.0-33.0); Mean Corpuscular Volume 88.8 fL (80.0-98.0); Mean Platelet Volume 12.4 fL (9.4-12.4); Monocytes Absolute Auto 0.7 X10*3/uL (0.1-1.2); Monocytes Percent Auto 8.1 % (2-11); Neutrophils Absolute Auto 5.1 x10*3/uL (2.0-8.3); Neutrophils Percent Auto 58.9 % (45-73); Platelet Count 183 X10*3/uL (160-400); Red Blood Count 4.29 X10*6/uL (4.60-5.80); Red Cell Distribution Width 13.1 % (11.0-16.0); White Blood Count 8.7 X10*3/uL (4.8-10.8)
[2022-11-04 05:12] VITALS: BP 145/74; PULSE 59; RESP 19; O2SAT 97
--- NOTE | 2022-11-04 05:14 | ED_ITS ---
HPI - SOB/Dyspnea General Chief Complaint: Dyspnea Stated Complaint: Sob Time Seen by Provider: 11/04/22 05:13 Source: patient Mode of arrival: ambulatory Limitations: no limitations History of Present Illness HPI Narrative: Patient with history of mild emphysema ex-smoker CAD status post stent in LAD 06/02 on aspirin and Plavix does cardio workout 3 times a week without symptoms noticed shortness of breath about 10 days ago lasted only for few hours got better continues his usual activity had cardio work out yesterday asymptomatic went to bed woke up at 02:00 when going to the bathroom felt short of breath un able to take breath from his nose felt nose blocked lasted for 2 hours on arrival after oxygen felt much better no shortness of breath patient is saturating 80-93% room air on arrival. No cough no wheezing patient never use albuterol inhaler Related Data Home Medications Medication Instructions Recorded Confirmed multivitamin 1 tab PO DAILY 06/16/22 10/14/22 atorvastatin 80 mg tablet 80 mg PO BEDTIME 08/02/22 10/14/22 clopidogrel 75 mg tablet 75 mg PO .DAILY@NOON 08/02/22 10/14/22 aspirin 81 mg tablet,delayed 81 mg PO .DAILY@NOON 09/03/22 10/14/22 release (Adult Low Dose Aspirin) lisinopril 5 mg tablet 5 mg PO .DAILY@NOON 09/03/22 10/14/22 Previous Rx's Medication Instructions Recorded carvedilol 3.125 mg tablet 3.125 mg PO BID #180 tabs 07/14/22 finasteride 5 mg tablet 5 mg PO DAILY 90 days #90 tabs 10/02/22 Allergies Allergy/AdvReac Type Severity Reaction Status Date / Time No Known Allergies Allergy Verified 11/04/22 04:41 [No Known Allergies*] Review of Systems Review of Systems: Yes all other systems are reviewed and are negative [facility] Past Medical History Medical History Acute coronary syndrome BPH w urinary obs/LUTS CAD (coronary artery disease) Elevated cholesterol Elevated PSA Former smoker HTN (hypertension) HTN (hypertension) Phimosis Prostate nodule SOB (shortness of breath) on exertion Surgical History Cholelithiasis (09/08/22) History of tonsillectomy Hx of colonoscopy Stented coronary artery Family History Family History Father Prostate cancer Diabetes Mother Heart attack Social History Social History Are you a primary intensive care specialist to a significant other at home: No Do you presently have visiting nurse or other home services: No Alcohol intake: current Alcohol intake frequency: a few times a week Patient Tobacco Use Status: Former Tobacco user Quit Date: 2013 Tobacco use type: Cigarette Years Smoked: 62 Smoked in Last 30 Days: No Use of substances other than those prescribed or required for medical reasons: No Advance Directives: No Advance Directives Information Provided: Yes Physical Exam Vital Signs: Vital Signs: Last Vital Signs Temp 98.1 F 11/04/22 06:31 Pulse 49 L 11/04/22 06:31 Resp 20 11/04/22 06:31 BP 134/61 11/04/22 06:31 Pulse Ox 97 11/04/22 06:31 O2 Del Method Nasal Cannula 11/04/22 06:31 O2 Flow Rate 1 11/04/22 06:31 BMI result Body Mass Index 25.8 Appearance: Alert. Oriented X3. No acute distress. Eyes: PERRLA, No Nystagmus ENT: Pharynx normal. Oral Mucosa moist Neck: Normal inspection. Neck supple. CVS: Normal heart rate and rhythm. Pulses normal. Respiratory: No respiratory distress. Equal air entry bilateral, no wheezing/rales/rhonchi Abdomen: Soft and nontender. Bowel sounds are present, no mass palpable, no CVA tenderness Skin: Skin warm and dry. Normal skin color. Normal skin turgor. Extremities: No lower extremity edema. No calf tenderness Neuro: Oriented X 3. No motor deficit. No sensory deficit.No cerebellar signs , cranial nerves II-XII intact Medical Decision Making Medical Decision Making MDM Narrative: Patient with nonspecific shortness of breath/angina equivalent without any chest pain without any ischemic changes initial troponin negative patient had recent LAD stent placed on dual antiplatelet treatment came for acute shortness of breath although not very clear we will repeat high sensitive troponin Differential Diagnosis ACS/non STEMI/CHF/COPD Lab Data [facility] Lab Attestation statement: I reviewed the patient's lab results. 11/04/22 05:03 11/04/22 05:03 Labs: Lab Results 11/04/22 11/04/22 11/04/22 Range/Units 05:03 05:03 05:03 WBC 8.7 (4.8-10.8) X10*3/uL RBC 4.29 L (4.60-5.80) X10*6/uL Hgb 12.6 L (14.0-18.0) g/dl Hct 38.1 L (42.0-52.0) % MCV 88.8 (80.0-98.0) fL MCH 29.4 (27.0-33.0) pg MCHC 33.1 (31.0-36.0) g/dl RDW 13.1 (11.0-16.0) % Plt Count 183 (160-400) X10*3/uL MPV 12.4 (9.4-12.4) fL Immature Gran % (Auto) 0.2 (0.0-0.4) % Neut % (Auto) 58.9 (45-73) % Lymph % (Auto) 26.4 (20-40) % Bourbon % (Auto) 8.1 (2-11) % Eos % (Auto) 5.7 H (0-4) % Baso % (Auto) 0.7 (0-2) % Lymph # (Auto) 2.3 (1.2-4.9) X10*3/uL Bourbon # (Auto) 0.7 (0.1-1.2) X10*3/uL Eos # (Auto) 0.5 H (0.0-0.4) X10*3/uL Baso # (Auto) 0.1 (0.0-0.2) X10*3/uL Abs Immat Gran (auto) 0.02 (0.00-0.03) X10*3/uL Absolute Neuts (auto) 5.1 (2.0-8.3) x10*3/uL Absolute Nucleated RBC 0.000 (0.0-0.012) X10*3/uL Nucleated RBC % (auto) 0.0 (0.0-0.2) /100WBC Sodium 145 (135-145) mmol/L Potassium 4.4 (3.3-5.1) mmol/L Chloride 106 (96-108) mmol/L Carbon Dioxide 32 H (22-29) mmol/L Anion Gap 11 L (12-20) BUN 17 H (9-16) mg/dL Creatinine 0.90 (0.5-1.4) mg/dL Estim Creat Clear Calc 61.9 Estimated GFR > 60 Random Glucose 108 (60-115) mg/dL Calcium 9.3 (8.4-10.2) mg/dL Troponin I High Sens (<3.5-35.0) ng/L B-Natriuretic Peptide 87 (<100) pg/mL 11/04/22 Range/Units 05:03 WBC (4.8-10.8) X10*3/uL RBC (4.60-5.80) X10*6/uL Hgb (14.0-18.0) g/dl Hct (42.0-52.0) % MCV (80.0-98.0) fL MCH (27.0-33.0) pg MCHC (31.0-36.0) g/dl RDW (11.0-16.0) % Plt Count (160-400) X10*3/uL MPV (9.4-12.4) fL Immature Gran % (Auto) (0.0-0.4) % Neut % (Auto) (45-73) % Lymph % (Auto) (20-40) % Bourbon % (Auto) (2-11) % Eos % (Auto) (0-4) % Baso % (Auto) (0-2) % Lymph # (Auto) (1.2-4.9) X10*3/uL Bourbon # (Auto) (0.1-1.2) X10*3/uL Eos # (Auto) (0.0-0.4) X10*3/uL Baso # (Auto) (0.0-0.2) X10*3/uL Abs Immat Gran (auto) (0.00-0.03) X10*3/uL Absolute Neuts (auto) (2.0-8.3) x10*3/uL Absolute Nucleated RBC (0.0-0.012) X10*3/uL Nucleated RBC % (auto) (0.0-0.2) /100WBC Sodium (135-145) mmol/L Potassium (3.3-5.1) mmol/L Chloride (96-108) mmol/L Carbon Dioxide (22-29) mmol/L Anion Gap (12-20) BUN (9-16) mg/dL Creatinine (0.5-1.4) mg/dL Estim Creat Clear Calc Estimated GFR Random Glucose (60-115) mg/dL Calcium (8.4-10.2) mg/dL Troponin I High Sens 3.6 D (<3.5-35.0) ng/L B-Natriuretic Peptide (<100) pg/mL Independent Interpretation I performed an independent interpretation of an: EKG Interpretation: Sinus bradycardia heart rate 53 beats per minute normal interval normal axis no acute ST-T changes no acute ischemia Discharge Plan Discharge Clinical Impression: Acute dyspnea Patient Disposition: Still a Patient Prescriptions: No Action multivitamin Tablet 1 tab PO DAILY atorvastatin 80 mg tablet 80 mg PO BEDTIME clopidogrel 75 mg tablet 75 mg PO .DAILY@NOON finasteride 5 mg tablet 5 mg PO DAILY 90 Days Qty: 90 1RF aspirin [Adult Low Dose Aspirin] 81 mg tablet,delayed release (DR/EC) 81 mg PO .DAILY@NOON lisinopril 5 mg tablet 5 mg PO .DAILY@NOON carvedilol 3.125 mg tablet 3.125 mg PO BID Qty: 180 1RF
--- NOTE | 2022-11-04 05:16 | PC.NURSE ---
this rn assumed care of pt from triage @ 0450. pt placed on 1L NC. pt calm and cooperative. pt changed into hospital gown placed on monitor worker. 18g iv placed in L AC. blood work and ekg obtained. pt ambulatory. dr kathleen made aware of pt status. pt awaiting to be seen by ed provider
[2022-11-04 05:21] LABS: Anion Gap 11 (12-20); Blood Urea Nitrogen 17 mg/dL (9-16); Calcium 9.3 mg/dL (8.4-10.2); Carbon Dioxide 32 mmol/L (22-29); Chloride 106 mmol/L (96-108); Creatinine Clr Calc Pharmacy 61.9; Estimated Glomerular Filt Rate > 60; Glucose Random 108 mg/dL (60-115); Potassium 4.4 mmol/L (3.3-5.1); Sodium 145 mmol/L (135-145)
[2022-11-04 05:36] LABS: Troponin-I High Sensitivity 3.6 ng/L (<3.5-35.0)
[2022-11-04 05:38] LABS: B Type Natriuretic Peptide 87 pg/mL (<100)
[2022-11-04 06:15] VITALS: BP 135/59; PULSE 56; RESP 22; O2SAT 97
[2022-11-04 06:31] VITALS: BP 134/61; PULSE 49; RESP 20; TEMP 36.7; O2SAT 97
--- NOTE | 2022-11-04 06:31 | PC.NURSE ---
per dr kathleen order placed for repeat troponin @ 1573. this rn placed order at this time
[2022-11-04 07:05] VITALS: BP 149/70; PULSE 51; RESP 18; O2SAT 98
--- NOTE | 2022-11-04 07:07 | PC.NURSE ---
Alert and oriented, Denies sob, chest pain , or headache. Denies any pain or discomfort. Aware that plan is to re-draw trop.
[2022-11-04 07:50] LABS: Troponin-I High Sensitivity 4.9 ng/L (<3.5-35.0)
[2022-11-04 10:38] VITALS: BP 151/69; PULSE 56; RESP 13; O2SAT 97
--- NOTE | 2022-11-04 11:19 | PC.NURSE ---
assumed care of pt at 1100, pt resting quiety, vss, pending provider review of lab results, no new orders at this time.
== END 2022-11-04 11:37 | disposition home or self-care (01) ==
PROVIDERS: Emergency Provider Internal Medicine; PCP Internal Medicine
DX: R06.02 Shortness of breath (principal); R07.89 Other chest pain; I25.10 Atherosclerotic heart disease of native coronary artery without angina pectoris; Z87.891 Personal history of nicotine dependence; Z79.899 Other long term (current) drug therapy
CPT/HCPCS: 36415; 71045; 80048; 83880; 84484; 85025; 93005; 99283; 99284

== ENCOUNTER 2022-11-26 10:29 | Outpatient (REF) | payer MEDICARE, SELFPAY ==
[2022-09-25 13:21] VITALS: BP 134/60; BP 148/62
--- NOTE | ~2022-11-26 | XR_ITS ---
EXAMINATION: XR CHEST CLINICAL INFORMATION: Cough COMPARISON: 11/04/2022 TECHNIQUE: 2 views of the chest were obtained. FINDINGS: No focal consolidation, pulmonary edema, or pleural effusion. Stable cardiomediastinal silhouette. XR/XR chest 2V IMPRESSION: No acute cardiopulmonary findings.
[2022-11-26 10:29] VITALS: BP 120/60; BMI 25.2
== END 2022-11-26 10:30 | disposition home or self-care (01) ==
LOC: HO.XRAY 10:29
PROVIDERS: PCP Internal Medicine; Visit Provider Internal Medicine
DX: R05.9 Cough, unspecified (principal); R06.89 Other abnormalities of breathing
CPT/HCPCS: 71046

== ENCOUNTER 2023-01-13 09:21 | Outpatient (REF) | payer MEDICARE, SELFPAY ==
[2023-01-13 09:21] VITALS: BP 128/62; BP 143/64
[2023-01-14 20:04] LABS: Free Prostate Spec Ag 0.8 ng/mL; Percent Free Prostate Spec Ag 20 % (calc) (>25); Prostate Specific Ag Total 4.1 ng/mL (< OR = 4.0)
== END 2023-01-13 09:22 | disposition home or self-care (01) ==
LOC: HO.10HDL 09:21
PROVIDERS: Visit Provider Urology
DX: Z12.5 Encounter for screening for malignant neoplasm of prostate (principal); R97.20 Elevated prostate specific antigen [PSA]
CPT/HCPCS: 36415; 84153; 84154

== ENCOUNTER 2023-01-22 09:57 | Outpatient (AMB) | payer MEDICARE, SELFPAY ==
[2022-09-25 13:21] VITALS: BP 134/60; BP 148/62
[2023-01-22 10:04] VITALS: BP 140/82; PULSE 60; O2SAT 94; BMI 25.7
--- NOTE | 2023-01-22 10:04 | A.OFFVIS_ITS ---
Intake Vital Signs 01/22/23 10:04 Height 5 ft 10 in Weight 179 lb BMI 25.7 BP 140/82 H Blood Pressure Location Lt brachial Position Sitting Pulse 60 Pulse Source Pulse Oximeter Pulse Oximetry (%) 94 Oxygen Delivery Method Room Air Intake Visit Reasons: COPD Intake Note: pt is here as a new patient for copd, he has a 60 year history of smoking, he s tates he does have some shortness of breath with exertion and stairs. He also states he has a sinus issues. 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 IS HERE FOR PULMONARY EVALUATION. BECAUSE IN THE PAST FEW MONTHS HE HAS HAD SHORTNESS OF BREATH ON EXERTION AND SOME COUGH. ACTUALLY AT THE END OF OCTOBER OF THIS YEAR WHICH WAS ABOUT 3 MONTHS AGO, HE HAD A BOUT OF NASAL CONGESTION, RUNNY NOSE AND SHORTNESS OF BREATH. HE WAS SEEN IN THE EMERGENCY ROOM, HAD LAB AND CHEST X-RAY, AND DISCHARGED HOME. HIS CHEST X-RAY WAS NORMAL AND CBC DID SHOW MILD EIOSINOPHILIA . HE CONTINUE TO HAVE NASAL CONGESTION, POSTNASAL DISCHARGE, AND INCREASED SHORTNESS OF BREATH ON LYING DOWN AT NIGHT. WAS SEEN BY DR. BOUDREAUX AT THE END OF NOVEMBER, HAD ANOTHER CHEST X-RAY WHICH WAS NEGATIVE, AN OTHER CBC COUNT WHICH SHOWED MILD EIOSINOPHILIA . THIS TIME HE RESPONDED WELL TO A SHORT COURSE OF PREDNISONE. AFTER THAT HE HE HAS MILD SHORTNESS OF BREATH ON EXERTION LIKE WALKING FAST OR. CLIMBING STAIRS HE DENIES ANY EPISODES OF WHEEZING. THE ABOVE DESCRIBE SYMPTOMS WERE EXPERIENCED BY HIM FOR THE 1ST TIME, NEVER BEFORE. HOWEVER IN JUNE OF THIS YEAR HE HAD ACUTE CORONARY ARTERY SYNDROME, INITIALLY ADMITTED HERE AT [facility] AND THEN SENT TO [facility] WHERE HE HAD CARDIAC CATHETERIZATION AND STENTING OF 1 CORONARY ARTERY. SINCE THEN HE IS ON CLOPIDOGREL 75 MG B.I.D.. IN AUGUST OF THIS YEAR HE ALSO HAD AN ATTACK OF BILIARY COLIC, TURNED OUT TO GALLSTONES AND UNDERWENT LAPAROSCOPIC CHOLECYSTECTOMY FROM WHICH HE RECOVERED WELL. HE DOES HAVE PAST HISTORY OF SMOKING FOR ALMOST 62 YEARS , ONLY ABOUT 5-7 CIGARETTES A DAY. HE QUIT SMOKING MORE THAN 10 YEARS AGO. PRIOR TO A FEW MONTHS AGO HE NEVER HAD ANY CHRONIC RESPIRATORY PROBLEMS. [facility] Medical History (Updated 01/22/23 @ 11:56 by Chirstiane Seay MD) Allergic rhinitis COPD (chronic obstructive pulmonary disease) History of smoking at least 1 pack per day for at least 30 years Former smoker SOB (shortness of breath) on exertion Elevated cholesterol CAD (coronary artery disease) HTN (hypertension) Acute coronary syndrome HTN (hypertension) Phimosis BPH w urinary obs/LUTS Prostate nodule Elevated PSA Surgical History Hx of colonoscopy Cholelithiasis (09/08/22) Stented coronary artery History of tonsillectomy Family History Father Prostate cancer Diabetes Mother Heart attack Social History Are you a primary care specialist to a significant other at home: No Do you presently have visiting nurse or other home services: No Alcohol intake: current Alcohol intake frequency: a few times a week Patient Tobacco Use Status: Former Tobacco user Quit Date: 2013 Tobacco use type: Cigarette Years Smoked: 62 Review of Systems Const All systems reviewed & are unremarkable except as noted in HPI and below Eyes Reports no additional complaints ENT Reports nasal congestion (OFF AND ON) Card Denies chest pain, Denies syncope, Denies irregular heart rhythm and Denies leg edema Resp Reports as per HPI GI Reports no additional complaints Reports other (BEING TREATED FOR BPH) Musc Reports no additional complaints Skin/Breast Reports system reviewed and no additional complaints, except as documented Neuro Reports no additional complaints and Denies syncope Psych Reports no additional complaints Endo Reports no additional complaints Aller/Immun Reports no additional complaints Physical Exam Vital Signs: Last Vital Signs Pulse 60 01/22/23 10:04 BP 140/82 H 01/22/23 10:04 Pulse Ox 94 01/22/23 10:04 Oxygen Delivery Method Room Air 01/22/23 10:04 BMI result Body Mass Index 25.7 Const General: healthy appearing, comfortable, no acute distress, alert and awake Orientation/consciousness: patient oriented x3 HEENT Head: Yes normal to inspection General nose exam: No nasal polyps present and No nasal discharge present Face and sinus: Yes sinuses nontender Mouth: oropharynx normal Throat: Yes posterior oropharynx normal Eyes General: appearance normal, both eyes and all related structures Neck Neck: Yes normal visual inspection, Yes no lymphadenopathy, Yes trachea midline and Yes no JVD Thyroid: Thyroid normal Chest Chest palpation & inspection: normal inspection of the chest and normal palpation of entire chest wall Resp Other: Percussion note is resonant, breath sounds are slightly distant with prolonged expiratory phase. But no wheezes rhonchi or crepitations are heard. Cardio Palpation: normal PMI Rate: regular rate Rhythm: regular rhythm Heart sounds: no gallops and no murmurs GI Palpation (GI): Soft to palpation, nontender, No hepatosplenomegaly present and no masses Auscultation: normal bowel sounds Back/Spine/Pelvis Thoracic/Lumbar Spine: thoracic and lumbar spine normal to inspection Skin General skin exam: no rashes or lesions noted Neuro General: patient oriented x3 and no focal motor deficits Cranial nerves: Yes CN's II-XII intact bilaterally Extrem General: Yes normal to inspection, Yes no clubbing, cyanosis or edema and Yes no calf tenderness Psych Speech and movement: Normal speech and movement present Results Reviewed Results Reviewed: Chest x-ray on 11/04 and 11/26/22 both times normal. CBC on 09/04 Eosinophil count 4.4%. on 11/04 5.7% Assessment & Plan Assessment & Plan (1) History of smoking at least 1 pack per day for at least 30 years: Comment: Patient does have history of smoking in the past, less than half pack a day for about. 64 years Quit more than 10 years ago. It may have resulted in causing mild chronic obstructive pulmonary disorder. Code(s): Z87.891 - Personal history of nicotine dependence (2) COPD (chronic obstructive pulmonary disease): Comment: With the past history of smoking and, on the basis of examination I think he probably does have a mild degree of chronic obstructive lung disease, but not symptomatic. Back in October/November of this year he probably had an acute viral or allergic rhinitis , with inflammation of upper airways. Eiosinophilia points to allergic etiology. It did get better with the short course of prednisone. At present he is not symptomatic. WILL GET A COMPLETE PULMONARY FUNCTION TEST. AND THEN DECIDE IF HE WOULD NEED ANY SHORT ACTING OR LONG-ACTING BRONCHODILATOR INHALERS. HE IS CAUTIONED ABOUT POSSIBLE ENVIRONMENTAL ALLERGIES. Code(s): J44.9 - Chronic obstructive pulmonary disease, unspecified (3) Allergic rhinitis: Comment: NOTED ABOVE HE PROBABLY HAD ACUTE ALLERGIC RHINITIS, WITH MILD BRONCHIAL ASTHMA, AT PRESENT IT IS IN ACTIVE. BUT WILL NEED TO BE MONITORED. HE DOES NOT NEED ANY ACTIVE MEDICATION AT THIS TIME. Code(s): J30.9 - Allergic rhinitis, unspecified Orders: Orders PFT pulmonary function test Today J30.9 - Allergic rhinitis, unspecified, J44.9 - Chronic obstructive pulmonary disease, unspecified, Z87.891 - Personal history of nicotine dependence Coding Level of Care Code New Pt Level 4 (85494) Diagnoses History of smoking at least 1 pack per day for at least 30 years Z87.891 COPD (chronic obstructive pulmonary disease) J44.9 Allergic rhinitis J30.9
== END 2023-01-22 10:37 | disposition home or self-care (01) ==
PROVIDERS: PCP Internal Medicine; Visit Provider Internal Medicine
DX: Z87.891 Personal history of nicotine dependence (principal); J44.9 Chronic obstructive pulmonary disease, unspecified; J30.9 Allergic rhinitis, unspecified
CPT/HCPCS: 99204

== ENCOUNTER → 2023-01-22 09:57 | Outpatient (BNVA) | payer MEDICARE, SELFPAY ==
[2023-01-13 09:21] VITALS: BP 128/62; BP 143/64
== END ==
PROVIDERS: PCP Internal Medicine; Visit Provider Internal Medicine

== ENCOUNTER 2023-01-27 11:49 | Outpatient (AMB) | payer MEDICARE, SELFPAY ==
[2022-09-25 13:21] VITALS: BP 130/60; BP 134/60; BP 148/62; BMI 26.0
--- NOTE | 2023-01-27 11:51 | A.OFFVIS_ITS ---
Intake Intake Visit Reasons: 4m/PSA(set) Intake Note: Patient presents today for a 4mo follow-up on, PSA Results: Meds- None Allergies to Antibiotic- No Known Allergies Blood Thinner- None PSA Results- 4.30 ng/mL 01/13/2023 Payroll Specialist Required: No Accompanied by: Self / Same As Patient Allergies No Known Allergies [No Known Allergies*] Allergy (Verified 01/27/23 11:51) Medication List - Last Reconciled 01/27/23 by Santana Jarrett MD aspirin (Adult Low Dose Aspirin) 81 mg PO .DAILY@NOON atorvastatin 80 mg PO BEDTIME carvedilol 3.125 mg PO BID 90 days clopidogrel 75 mg PO .DAILY@NOON 90 days finasteride 5 mg PO DAILY 90 days lisinopril 5 mg PO .DAILY@NOON 90 days multivitamin 1 tab PO DAILY HPI HPI Comments History of Present Illness Details Pj is a very pleasant male. He is a patient of Dr. Gaxiola. He is seen for the following urologic issues - elevated PSA - prostate nodule - phimosis Telemedicine Evaluation 15 min Consultation [employer] Video attempted PSA stabilized Is high for finasteride however he is 87 years old Had heart attack with stent in June 2022 Is on Plavix for 6 months Discussed potential biopsy At this point in time will hold off for 6 months and continue to monitor PSA Prostate nodule/elevated PSA Minimal urinary issues - Only getting up once or twice at night PSA - 07/01 7.1/5.9 19%, 12/29 3.8, 03/01 3.0 F 30%, 08/31 4.6, 01/31 4.1 20% on finasteride ANIA nodule on left base Discussion regarding prostate cancer he is at 10-15 % risk Good response to finasteride with noticeable improvement in stream [facility] Medical History Allergic rhinitis COPD (chronic obstructive pulmonary disease) History of smoking at least 1 pack per day for at least 30 years Former smoker SOB (shortness of breath) on exertion Elevated cholesterol CAD (coronary artery disease) HTN (hypertension) Acute coronary syndrome HTN (hypertension) Phimosis BPH w urinary obs/LUTS Prostate nodule Elevated PSA Surgical History Hx of colonoscopy Cholelithiasis (09/08/22) Stented coronary artery History of tonsillectomy Family History Father Prostate cancer Diabetes Mother Heart attack Social History Are you a primary health care sanitary technician to a significant other at home: No Do you presently have visiting nurse or other home services: No Alcohol intake: current Alcohol intake frequency: a few times a week Patient Tobacco Use Status: Former Tobacco user Quit Date: 2013 Tobacco use type: Cigarette Years Smoked: 62 Review of Systems Const All systems reviewed & are unremarkable except as noted in HPI and below Reports no additional complaints Resp Reports no additional complaints GI Reports no additional complaints Reports as per HPI Musc Reports no additional complaints Physical Exam Telemedicine evaluation Appropriate responses Regular breathing rate and rhythm HEENT Head: Yes normal to inspection Ears: hearing grossly normal bilaterally Eyes General: appearance normal, both eyes and all related structures Neck Neck: Yes normal visual inspection Chest Chest palpation & inspection: normal inspection of the chest Resp Effort & Inspection: normal respiratory effort and able to speak in complete sentences Assessment & Plan Assessment & Plan (1) Elevated PSA: Code(s): R97.20 - Elevated prostate specific antigen [PSA] (2) Prostate nodule: Code(s): N40.2 - Nodular prostate without lower urinary tract symptoms (3) BPH w urinary obs/LUTS: Code(s): N40.1 - Benign prostatic hyperplasia with lower urinary tract symptoms; N13.8 - Other obstructive and reflux uropathy Plan Six month follow-up PSA Orders: Orders PSA,Total (Free>4and<10) 6 Months R97.20 - Elevated prostate specific antigen [PSA] Medications: Refilled finasteride 5 mg PO DAILY 90 tabs 1RF 90 days R97.20 - Elevated prostate specific antigen [PSA] Patient Instructions: Imaging studies, laboratory and physical exam results were discussed and reviewed in detail. No major barriers to patient understanding were identified. An opportunity to ask questions regarding the treatment plan was provided. All questions were answered. The patient expressed understanding and agreement with the above treatment plan. The patient is aware they should contact our office by phone for worsening of their current condition or the appearance of new urologic symptoms. Compliance is encouraged with any medications and followup testing that is ordered. It is a privilege to participate in the urologic care of your patient. If you have any questions or concerns regarding treatment for the above conditions, or other urologic issues, please do not hesitate to contact me. The office telephone contact is [phone]. This note is constructed using voice recognition software. While every effort has been made to ensure accuracy camera assembler errors may have been included. Yours sincerely, Dr Santana Jarrett MD, [facility] - Urology Providers of Expert, Compassionate Care for the Genitourinary System Telehealth Telehealth Location of provider rendering services: practice address Location of patient: address on file Patient Identification confirmed using: Name, : Yes Telehealth method: video Patient verbally consented to treatment: Yes Patient verbally consented to billing insurance company: Yes Patient informed of any privacy concerns related to visit: Yes Coding Level of Care Code Tele Est Pt Level 3 (03449) Diagnoses Elevated PSA R97.20 Prostate nodule N40.2 BPH w urinary obs/LUTS N40.1; N13.8
== END 2023-01-27 13:42 | disposition home or self-care (01) ==
LOC: HO.HUSH 11:49
PROVIDERS: PCP Internal Medicine; Visit Provider Urology
DX: R97.20 Elevated prostate specific antigen [PSA] (principal); N40.2 Nodular prostate without lower urinary tract symptoms; N40.1 Benign prostatic hyperplasia with lower urinary tract symptoms; N13.8 Other obstructive and reflux uropathy
CPT/HCPCS: 99213

== ENCOUNTER → 2023-01-27 11:49 | Outpatient (BNVA) | payer MEDICARE, SELFPAY ==
[2023-01-13 09:21] VITALS: BP 128/62; BP 143/64
== END ==
PROVIDERS: PCP Internal Medicine; Visit Provider Urology

== ENCOUNTER 2023-03-10 11:15 | Outpatient (AMB) | payer MEDICARE, SELFPAY ==
[2023-03-10 11:55] VITALS: BP 160/80; PULSE 52; O2SAT 93; BMI 25.7
--- NOTE | 2023-03-10 11:55 | A.OFFVIS_ITS ---
Intake Vital Signs 03/10/23 11:55 Height 5 ft 10 in Weight 179 lb BMI 25.7 BP 160/80 H Blood Pressure Location Lt brachial Position Sitting Pulse 52 Pulse Source Pulse Oximeter Pulse Oximetry (%) 93 Oxygen Delivery Method Room Air Intake Visit Reasons: Same day PFT Intake Note: pt is here for follow up and states he is okay Warp Trucker Required: No Allergies No Known Allergies [No Known Allergies*] Allergy (Verified 03/10/23 13:12) Medication List - Last Reconciled 03/10/23 by Christiane Seay MD aspirin (Adult Low Dose Aspirin) 81 mg PO .DAILY@NOON atorvastatin 80 mg PO BEDTIME carvedilol 3.125 mg PO BID 90 days clopidogrel 75 mg PO .DAILY@NOON 90 days finasteride 5 mg PO DAILY 90 days lisinopril 5 mg PO .DAILY@NOON 90 days multivitamin 1 tab PO DAILY Do you need a note to return to daycare/school/sports/work: No HPI Same day PFT HPI Details 87 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 TODAY HE CLAIMS THAT HE IS FEELING FINE AND HE HAS NO COUGH OR WHEEZING ATTACKS. HE DOES GET SHORT OF BREATH IF HE WALKS FAST OR IF HE CLIMBS UP HILL OR STAIRS. IN SPITE OF THIS HE REMAINS VERY ACTIVE. HE DOES HAVE MILD INTERMITTENT NASAL CONGESTION, MAY BE DUE TO ALLERGY, HAS HAD MILDEIOSINOPHILIA SHOWN BY HIS CBC TESTS A FEW TIMES. HE CONTINUE TO HAVE NASAL CONGESTION, POSTNASAL DISCHARGE, AND INCREASED SHORTNESS OF BREATH ON LYING DOWN AT NIGHT. HE DOES HAVE PAST HISTORY OF SMOKING FOR ALMOST 62 YEARS , ONLY ABOUT 5-7 CIGARETTES A DAY. HE QUIT SMOKING MORE THAN 10 YEARS AGO. HE HAS HAD NO MAJOR CHRONIC PULMONARY PROBLEMS. [facility] Medical History Allergic rhinitis COPD (chronic obstructive pulmonary disease) History of smoking at least 1 pack per day for at least 30 years Former smoker SOB (shortness of breath) on exertion Elevated cholesterol CAD (coronary artery disease) HTN (hypertension) Acute coronary syndrome HTN (hypertension) Phimosis BPH w urinary obs/LUTS Prostate nodule Elevated PSA Surgical History Hx of colonoscopy Cholelithiasis (09/08/22) Stented coronary artery History of tonsillectomy Family History Father Prostate cancer Diabetes Mother Heart attack Social History Are you a primary healthcare architect to a significant other at home: No Do you presently have visiting nurse or other home services: No Alcohol intake: current Alcohol intake frequency: a few times a week Patient Tobacco Use Status: Former Tobacco user Quit Date: 2013 Tobacco use type: Cigarette Years Smoked: 62 Review of Systems Const All systems reviewed & are unremarkable except as noted in HPI and below Eyes Reports no additional complaints ENT Reports nasal congestion (OFF AND ON) Card Denies chest pain, Denies syncope, Denies irregular heart rhythm and Denies leg edema Resp Reports as per HPI GI Reports no additional complaints Reports other (BEING TREATED FOR BPH) Musc Reports no additional complaints Skin/Breast Reports system reviewed and no additional complaints, except as documented Neuro Reports no additional complaints and Denies syncope Psych Reports no additional complaints Endo Reports no additional complaints Aller/Immun Reports no additional complaints Physical Exam Vital Signs: Last Vital Signs Pulse 52 03/10/23 11:55 BP 160/80 H 03/10/23 11:55 Pulse Ox 93 03/10/23 11:55 Oxygen Delivery Method Room Air 03/10/23 11:55 BMI result Body Mass Index 25.7 Const General: healthy appearing, comfortable, no acute distress, alert and awake Orientation/consciousness: patient oriented x3 HEENT Head: Yes normal to inspection General nose exam: No nasal polyps present and No nasal discharge present Face and sinus: Yes sinuses nontender Mouth: oropharynx normal Throat: Yes posterior oropharynx normal Eyes General: appearance normal, both eyes and all related structures Neck Neck: Yes normal visual inspection, Yes no lymphadenopathy, Yes trachea midline and Yes no JVD Thyroid: Thyroid normal Chest Chest palpation & inspection: normal inspection of the chest, normal palpation of entire chest wall and no tenderness Resp Other: Percussion note is resonant, breath sounds are slightly distant with prolonged expiratory phase. But no wheezes rhonchi or crepitations are heard. Cardio Palpation: normal PMI Rate: regular rate Rhythm: regular rhythm Heart sounds: no gallops and no murmurs GI Palpation (GI): Soft to palpation, nontender, No hepatosplenomegaly present and no masses Auscultation: normal bowel sounds Back/Spine/Pelvis Thoracic/Lumbar Spine: thoracic and lumbar spine normal to inspection Skin General skin exam: no rashes or lesions noted Neuro General: patient oriented x3 and no focal motor deficits Cranial nerves: Yes CN's II-XII intact bilaterally Extrem General: Yes normal to inspection, Yes no clubbing, cyanosis or edema and Yes no calf tenderness Psych Speech and movement: Normal speech and movement present Results Reviewed Results Reviewed: PULMONARY FUNCTION TEST PERFORMED EARLIER TODAY: THERE IS THE A DEFINITE PATTERN OF CHRONIC OBSTRUCTIVE PULMONARY DISEASE, , MODERATELY SEVERE. THERE IS NO SIGNIFICANT RESPONSE TO BRONCHODILATOR THERAPY. Assessment & Plan Assessment & Plan (1) COPD (chronic obstructive pulmonary disease): Comment: CLINICALLY I THINK HE HAS MILD CHRONIC OBSTRUCTIVE PULMONARY DISEASE. BUT PER PULMONARY FUNCTION TEST HE HAS MODERATELY SEVERE, COPD . THIS IS DEFINITELY RELATED TO HIS PAST SMOKING. AT PRESENT HE IS TOTALLY ASYMPTOMATIC AND PHYSICALLY VERY ACTIVE. DISCUSSED WITH HIM THE TREATMENT OPTIONS. HE IS CERTAINLY DOES NOT WANT TO BE ON ANY MAINTENANCE REGIMEN. HE IS AGREEABLE TO HAVE A IVY INHALER ON HAND, AND USE IT ONLY P.R.N.. I EXPLAINED TO HIM THAT HE MAY GET ACUTE EXACERBATIONS IF, HE GETS ANY UPPER RESPIRATORY INFECTION( VIRAL OR BACTERIAL ) , MAYBE ONCE OR TWICE A YEAR, AND IN THAT CASE HE MAY NEED A SHORT COURSE OF PREDNISONE AND OR ANTIBIOTIC. HE SAY IS THAT HE WOULD DEFINITELY GET IN TOUCH WITH HIS PRIMARY CARE PHYSICIAN,DR. BOUDREAUX , IN THAT CASE. HE WILL CALL MY OFFICE ONLY IF HE NEEDS FOLLOW-UP PULMONARY CHECKUP. I THINK IT MAY BE PRUDENT TO DO AT LEAST A QUICK SPIROMETRY ON A YEARLY BASIS TO MAKE SURE THAT HIS PULMONARY STATUS IS NOT DETERIORATING. Code(s): J44.9 - Chronic obstructive pulmonary disease, unspecified (2) History of smoking at least 1 pack per day for at least 30 years: Comment: Patient does have history of smoking in the past, less than half pack a day for about 62 years and quit more than 10 years ago . It may have resulted in causing Chronic obstructive pulmonary disorder. Code(s): Z87.891 - Personal history of nicotine dependence Coding Level of Care Code Est Pt Level 3 (95014) Diagnoses COPD (chronic obstructive pulmonary disease) J44.9 History of smoking at least 1 pack per day for at least 30 years Z87.891
== END 2023-03-10 13:10 | disposition home or self-care (01) ==
PROVIDERS: PCP Internal Medicine; Visit Provider Internal Medicine
DX: J44.9 Chronic obstructive pulmonary disease, unspecified (principal); Z87.891 Personal history of nicotine dependence
CPT/HCPCS: 99213

== ENCOUNTER 2023-03-10 11:17 | Outpatient (REF) | payer MEDICARE, SELFPAY ==
--- NOTE | 2023-03-12 12:20 | PFT_ITS ---
FLOWS: 1. FEV1 105% of predicted at 1.15 L. 2. FVC 117% of predicted at 2.71 L. 3. FEV1 to FVC ratio of 0.42. 4. Positive bronchodilator response. LUNG VOLUMES: 1. Total lung capacity 71% of predicted at 5.19 L. 2. Residual volume 100% of predicted at 2.87 L. 3. Expiratory reserve volume 24% of predicted at 0.32 L. 4. Slow vital capacity 56% of predicted at 2.32 L. 5. Diffusion capacity is moderately decreased, diffusion capacity adjusted being mildly decreased after correction for alveolar ventilation. IMPRESSION: Severe obstructive and restrictive ventilatory defect with positive bronchodilator response. Decreased expiratory reserve volume suggests extrathoracic restriction likely secondary to abdominal obesity. Decreased diffusion capacity suggests emphysema. Dg Galvan MD AP/MODL / [id number]
== END 2023-03-10 11:18 | disposition home or self-care (01) ==
LOC: HO.RESP 11:17
PROVIDERS: PCP Internal Medicine; Visit Provider Internal Medicine
DX: J44.9 Chronic obstructive pulmonary disease, unspecified (principal); J30.9 Allergic rhinitis, unspecified; Z87.891 Personal history of nicotine dependence
CPT/HCPCS: 94010; 94727; 94729; 99212

== ENCOUNTER → 2023-03-12 12:20 | Outpatient (BNV) | payer MEDICARE, SELFPAY | PROVIDERS: PCP Internal Medicine; Visit Provider Internal Medicine Pulmonary Disease | DX: J44.9 Chronic obstructive pulmonary disease, unspecified (principal); Z87.891 Personal history of nicotine dependence | CPT/HCPCS: 94060; 94727; 94729 ==

== ENCOUNTER 2023-04-14 09:24 | Outpatient (AMB) | payer MEDICARE, SELFPAY ==
[2022-09-25 13:21] VITALS: BP 130/60; BP 134/60; BP 148/62; BMI 26.0
[2023-04-14 09:37] VITALS: BP 130/78; PULSE 62; BMI 25.9
--- NOTE | 2023-04-14 09:37 | MHC.OFFVIS ---
Intake Vital Signs 04/14/23 09:37 Height 5 ft 10 in Weight 180 lb 12.465 oz BMI 25.9 BP 130/78 Blood Pressure Location Lt brachial Position Sitting Pulse 62 Intake Visit Reasons: 6 mth f/up Intake Note: 6 month follow-up feeling good ? 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 He has been doing very well from cardiac perspective. No exertional symptoms. Taking all his medications. Has developed some bronchospastic airway disease uses albuterol as needed. No exertional chest pain. No heart failure symptoms. No lightheadedness, syncope. [facility] Medical History Allergic rhinitis COPD (chronic obstructive pulmonary disease) History of smoking at least 1 pack per day for at least 30 years Former smoker SOB (shortness of breath) on exertion Elevated cholesterol CAD (coronary artery disease) HTN (hypertension) Acute coronary syndrome HTN (hypertension) Phimosis BPH w urinary obs/LUTS Prostate nodule Elevated PSA Surgical History Hx of colonoscopy Cholelithiasis (09/08/22) Stented coronary artery History of tonsillectomy Family History Father Prostate cancer Diabetes Mother Heart attack Social History Are you a primary care team coordinator scheduler to a significant other at home: No Do you presently have visiting nurse or other home services: No Alcohol intake: current Alcohol intake frequency: a few times a week Patient Tobacco Use Status: Former Tobacco user Quit Date: 2013 Tobacco use type: Cigarette Years Smoked: 62 Review of Systems Const Denies chills, Denies fatigue, Denies fever(s), Denies frequent falls, Denies weakness, Denies weight gain and Denies weight loss ENT Denies dizziness Card Denies chest pain, Denies leg edema, Denies lightheadedness, Denies palpitations, Denies dyspnea, Denies dyspnea on exertion, Denies orthopnea and Denies other (loss of consciousness) Resp Denies cough, Denies dyspnea and Denies dyspnea on exertion GI Denies hematochezia and Denies change in stool character Musc Denies abnormal gait, Denies muscle weakness, Denies numbness, Denies radiating pain into limb and Denies tingling Neuro Denies Abnormal speech present, Denies abnormal gait, Denies dizziness, Denies frequent falls, Denies numbness, Denies tingling and Denies weakness Endo Denies fatigue and Denies palpitations Physical Exam Vital Signs: Last Vital Signs Pulse 62 04/14/23 09:37 BP 130/78 04/14/23 09:37 BMI result Body Mass Index 25.9 Const General: cooperative, comfortable, no acute distress, well developed, alert, awake, Physically active and well groomed Nutritional Appearance: average body habitus Orientation/consciousness: patient oriented x3 Limitations: no limitations Neck Neck: Yes trachea midline, Yes supple and Yes no JVD Resp Effort & Inspection: normal respiratory effort Auscultation: clear to auscultation bilaterally Cardio Jugular venous distension: no JVD Palpation: normal PMI Rate: regular rate Rhythm: regular rhythm Heart sounds: S1 normal heart sound present, S2 normal heart sound present, no click, no gallops and no murmurs GI Auscultation: normal bowel sounds Skin General skin exam: no rashes or lesions noted and ecchymosis Neuro General: patient oriented x3 and no focal motor deficits Speech: No Abnormal speech present Extrem General: Yes no clubbing, cyanosis or edema Assessment & Plan Assessment & Plan (1) CAD (coronary artery disease): Code(s): I25.10 - Atherosclerotic heart disease of [place] coronary artery without angina pectoris Plan: CAD status post anterior myocardial infarction, status post LAD stenting. Normalized LV ejection fraction since stenting and non neurohormonal modulation. Continue dual antiplatelet therapy till June of 2023 and lifelong aspirin therapy beyond that. Continue high-intensity statin therapy with target goal LDL closer to 60 mg/dL. Continue current neurohormonal modulation with carvedilol lisinopril as well as for blood pressure control. Encouraged to continue to participate in physical activity as tolerated. (2) HTN (hypertension): Code(s): I10 - Essential (primary) hypertension Plan: Hypertension which is currently well optimized advised to monitor blood pressure at home maintain a log goal blood pressure less than 130/84. Low-salt diet was discussed. Continue current therapy with carvedilol lisinopril importance of compliance with medication was discussed. Will follow up in the clinic in 1 year's time, sooner p.r.n.. Thank you for allowing me to partake in his care Coding Level of Care Code Est Pt Level 4 (04656) Diagnoses CAD (coronary artery disease) I25.10 HTN (hypertension) I10
== END 2023-04-14 10:07 | disposition home or self-care (01) ==
PROVIDERS: PCP Internal Medicine; Visit Provider Internal Medicine Cardiovascular Disease
DX: I25.10 Atherosclerotic heart disease of native coronary artery without angina pectoris (principal); I10 Essential (primary) hypertension
CPT/HCPCS: 99214

== ENCOUNTER → 2023-04-14 09:24 | Outpatient (BNVA) | payer MEDICARE, SELFPAY | PROVIDERS: PCP Internal Medicine; Visit Provider Internal Medicine Cardiovascular Disease | DX: I25.10 Atherosclerotic heart disease of native coronary artery without angina pectoris (principal); I10 Essential (primary) hypertension; Z95.5 Presence of coronary angioplasty implant and graft | CPT/HCPCS: 99212 ==

== ENCOUNTER 2023-07-16 08:57 | Outpatient (REF) | payer MEDICARE, SELFPAY ==
[2023-07-16 12:20] LABS: PSA,Total (Free>4and<10) 4.99 ng/mL (0.00-4.00)
[2023-07-17 12:08] LABS: Free Prostate Spec Ag 1.1 ng/mL; Percent Free Prostate Spec Ag 21 % (calc) (>25); Prostate Specific Ag Total 5.3 ng/mL (< OR = 4.0)
== END 2023-07-16 08:58 | disposition home or self-care (01) ==
LOC: HO.10HDL 08:57
PROVIDERS: Visit Provider Urology
DX: Z12.5 Encounter for screening for malignant neoplasm of prostate (principal); R97.20 Elevated prostate specific antigen [PSA]
CPT/HCPCS: 36415; 84153; 84154

== ENCOUNTER 2023-07-31 10:43 | Outpatient (AMB) | payer MEDICARE, SELFPAY ==
--- NOTE | 2023-07-31 10:47 | A.OFFVIS_ITS ---
Intake Intake Visit Reasons: 6 month psa(set) Intake Note: Patient is Present for Follow Up Urology Medication: Finasteride Antibiotic Allergies:None Blood Thinners: Aspirin, Plavix Confirmed Pharmacy: PVR: 20 Allergies No Known Allergies [No Known Allergies*] Allergy (Verified 03/10/23 13:12) HPI HPI Comments History of Present Illness Details Pj is a very pleasant male. He is a patient of Dr. Gaxiola. He is seen for the following urologic issues - elevated PSA - prostate nodule - phimosis PVR 20 cc PSA 5.3 Nodular prostate on exam Suggests prostate biopsy Restart finasteride Prostate nodule/elevated PSA Minimal urinary issues - Only getting up once or twice at night PSA - 07/01 7.1/5.9 19%, 12/29 3.8, 03/01 3.0 F 30%, 08/31 4.6, 01/31 4.1 20% on finasteride, 08/01 5.3 21% ANIA nodule on left base Discussion regarding prostate cancer he is at 10-15 % risk Good response to finasteride with noticeable improvement in stream PFSH Medical History Allergic rhinitis COPD (chronic obstructive pulmonary disease) History of smoking at least 1 pack per day for at least 30 years Former smoker SOB (shortness of breath) on exertion Elevated cholesterol CAD (coronary artery disease) HTN (hypertension) Acute coronary syndrome HTN (hypertension) Phimosis BPH w urinary obs/LUTS Prostate nodule Elevated PSA Surgical History Hx of colonoscopy Cholelithiasis (09/08/22) Stented coronary artery History of tonsillectomy Family History Father Prostate cancer Diabetes Mother Heart attack Social History Are you a primary day care teacher to a significant other at home: No Do you presently have visiting nurse or other home services: No Alcohol intake: current Alcohol intake frequency: a few times a week Patient Tobacco Use Status: Former Tobacco user Quit Date: 2013 Tobacco use type: Cigarette Years Smoked: 62 Review of Systems Const Denies chills and Denies fever(s) Card Reports no additional complaints and Denies syncope Resp Denies cough GI Denies abdominal pain and Denies heartburn Reports as per HPI and Denies change in libido Neuro Denies syncope Psych Denies change in libido Endo Denies change in libido Physical Exam Const General: cooperative, healthy appearing, comfortable and no acute distress Orientation/consciousness: patient oriented x3 HEENT Face and sinus: Yes normal facial exam Mouth: moist mucous membranes Neck Neck: Yes normal visual inspection, Yes full ROM and Yes trachea midline Chest Chest palpation & inspection: normal inspection of the chest Resp Effort & Inspection: normal respiratory effort, able to speak in complete sentences and no respiratory distress GI Inspection: Yes normal to inspection Rectal Exam - Male: Yes normal sphincter tone and Yes prostate normal Male General Exam: Yes normal external exam Penis: normal penis and circumcised Meatus: meatus normal Scrotum: scrotum normal Testes: Testes normal Back/Spine/Pelvis Cervical Spine: normal cervical lordosis Thoracic/Lumbar Spine: thoracic and lumbar spine normal to inspection Skin General skin exam: no rashes or lesions noted Neuro General: patient oriented x3, gait normal, tone normal and moves all extremities Extrem General: Yes normal to inspection and Yes capillary refill normal Office Procedures Post Void Residual Post Residual Void Post Void Residual (PVR): 20 42776-Blto Void Residual by ultrasound Assessment & Plan Assessment & Plan (1) Elevated PSA: Code(s): R97.20 - Elevated prostate specific antigen [PSA] (2) BPH w urinary obs/LUTS: Code(s): N40.1 - Benign prostatic hyperplasia with lower urinary tract symptoms; N13.8 - Other obstructive and reflux uropathy (3) Prostate nodule: Code(s): N40.2 - Nodular prostate without lower urinary tract symptoms Plan Risks and benefits regarding trans rectal ultrasound with prostate biopsy were discussed. Options of continued surveillance, no treatment and biopsy were offered. The risks include but are not limited to, urinary tract infection, sepsis, difficulty urinating, bleeding into the rectum or bladder that requires intervention and transfusion,and failure to diagnose prostate cancer. The patient understands the options and the risks involved. They wish to proceed. Printed information was provided to ensure he remains off anticoagulation for the appropriate length of time. He may require cardiology or PCP clearance. An antibiotic will be administered prior to, and following the procedure Orders: Orders AMB Post Void Residual by ultrasound Today N13.8 - Other obstructive and reflux uropathy, N40.1 - Benign prostatic hyperplasia with lower urinary tract symptoms Medications: New levofloxacin take 1 tablet day before procedure, 1 tablet day of procedure and 1 tablet day after procedure 500 mg PO daily 3 tabs 0RF 3 days Patient Instructions: Imaging studies, laboratory and physical exam results were discussed and reviewed in detail. No major barriers to patient understanding were identified. An opportunity to ask questions regarding the treatment plan was provided. All questions were answered. The patient expressed understanding and agreement with the above treatment plan. The patient is aware they should contact our office by phone for worsening of their current condition or the appearance of new urologic symptoms. Compliance is encouraged with any medications and followup testing that is ordered. It is a privilege to participate in the urologic care of your patient. If you have any questions or concerns regarding treatment for the above conditions, or other urologic issues, please do not hesitate to contact me. The office telephone contact is [phone]. This note is constructed using voice recognition software. While every effort has been made to ensure accuracy inventory clerk errors may have been included. Yours sincerely, Dr Santana Jarrett MD, [facility] - Urology Providers of Expert, Compassionate Care for the Genitourinary System Coding Level of Care Code Est Pt Level 4 (29717) Diagnoses Elevated PSA R97.20 BPH w urinary obs/LUTS N40.1; N13.8 Prostate nodule N40.2 CPT Codes Post Residual Void - PVR CPT Code: 37695-Tuxq Void Residual by ultrasound ([id number])
== END 2023-07-31 11:04 | disposition home or self-care (01) ==
PROVIDERS: PCP Internal Medicine; Visit Provider Urology
DX: R97.20 Elevated prostate specific antigen [PSA] (principal); N40.1 Benign prostatic hyperplasia with lower urinary tract symptoms; N13.8 Other obstructive and reflux uropathy; N40.2 Nodular prostate without lower urinary tract symptoms
CPT/HCPCS: 99214

== ENCOUNTER 2023-07-31 18:41 | Emergency (ER) | payer MEDICARE, SELFPAY ==
[2022-12-29 15:18] VITALS: BP 120/60; BMI 25.2
[2023-07-31] VITALS (7 sets, daily range): BP systolic 142–175; BP diastolic 65–96; PULSE 50–64; RESP 17; TEMP 36.3–36.5; O2SAT 94–97; BMI 25.4
--- NOTE | ~2023-07-31 | CT_ITS ---
EXAMINATION: CTA head and neck with and without contrast CLINICAL INFORMATION: Dizziness COMPARISON: CTA head and neck on 01/07/2021 TECHNIQUE: Test bolus sequences followed by intravenous administration of 70 mL of Omnipaque 350 contrast. Helical imaging was performed in the axial plane from the skull vertex to the thoracic inlet. Delayed postcontrast imaging of the head was also performed. The data was processed at the invasive cardiovascular technologist workstation for generation of MIP sequences. Angled MIPs and volume rendered reformatted images were also generated at an offline 3D workstation. Stenoses are assessed in accordance with NASCET criteria unless otherwise indicated. This CT examination was performed using dose optimization techniques as appropriate, variously including the following: *Automated exposure control *Adjustment of mA and/or kV according to patient size (this includes techniques or standardized protocols for targeted exams where dose is matched to indication/reason for exam; i.e. extremities or head) *Use of iterative reconstruction technique DLP: 2221 mGy-cm FINDINGS: BRAIN: No acute intracranial hemorrhage or infarct. The gaffney-white matter differentiation is preserved. Patchy hypodensity involving the periventricular deep white matter compatible with small vessel ischemic disease. Diffuse widening of the sulci with associated ex vacuo dilation of the ventricles compatible with global cerebral atrophy. No midline shift or hydrocephalus. No acute extra-axial fluid collections. The osseous structures are unremarkable. No orbital pathology. Mild mucosal thickening of the left maxillary sinus. The mastoid air cells are clear. Atherosclerotic calcifications of the bilateral carotid siphons. CTA NECK: Three-vessel aortic arch. The innominate and bilateral subclavian arteries are patent. There is atherosclerotic calcifications at the origin of the left subclavian artery without significant stenosis. The origins and cervical segments of the common carotid arteries as well as the common carotid artery bifurcations are patent bilaterally. The cervical segments of the internal carotid arteries are also patent bilaterally. The origins and cervical segments of the vertebral arteries are patent bilaterally. No hemodynamically significant stenosis, dissection, or aneurysm. The visualized branches of the external carotid arteries are unremarkable. CTA HEAD: Mild atherosclerotic calcifications of the bilateral carotid siphons. Anterior circulation: The petrous, cavernous, and supraclinoid segments of the internal carotid arteries are patent bilaterally. Redemonstration of ectasia involving the cavernous ICAs bilaterally. The major branches of the anterior and middle cerebral arteries as well as the anterior communicating artery complex are patent. There is also ectasia of the anterior, indicating artery complex. Posterior circulation: The intracranial vertebral arteries are patent bilaterally. The basilar artery is normal in caliber and course. The posterior cerebral and superior cerebellar arteries arise normally from the basilar summit. Left posterior cerebral artery. On delayed imaging, the venous structures demonstrate normal contrast opacification. No filling defect. No abnormal intraparenchymal enhancement. Soft tissues: No suspicious neck mass or cervical adenopathy. Lungs: Emphysematous changes. Biapical scarring. Bones: No acute osseous abnormality. No lytic or blastic osseous lesions. Multilevel degenerative changes of the visualized spine. CT/CT angio head neck IMPRESSION: -No acute intracranial hemorrhage or edematous infarct. -No hemodynamically significant stenosis or proximal occlusion of the vasculature of the head and neck. Ectasia of the bilateral cavernous ICAs and the anterior communicating artery. No saccular aneurysm.
[2023-07-31 19:29] LABS: MANUAL DIFF FLAG NO
--- NOTE | 2023-07-31 19:31 | ED.GENADULT ---
HPI - General Adult General Chief complaint: Weakness Stated complaint: LIGHTHEADED,DIZZY Time Seen by Provider: 07/31/23 19:03 Source: patient and family Mode of arrival: EMS Limitations: no limitations History of Present Illness HPI narrative: Patient comes to the emergency room complaining of dizziness. Patient states that earlier today, patient went to [employer] spot picker food for him and his . When he was picking of the foot, patient started feeling unsteady on his feet. Patient denies hitting his head or losing consciousness, no actual fall. Patient states that he was able to make it to his car and drive home. Related Data Home Medications Medication Instructions Recorded Confirmed multivitamin 1 tab PO DAILY 06/16/22 04/14/23 aspirin 81 mg tablet,delayed 81 mg PO .DAILY@NOON 09/03/22 04/14/23 release (Adult Low Dose Aspirin) Previous Rx's Medication Instructions Recorded carvedilol 3.125 mg tablet 3.125 mg PO BID 90 days #180 tabs 01/19/23 clopidogrel 75 mg tablet 75 mg PO .DAILY@NOON 90 days #90 01/19/23 tabs lisinopril 5 mg tablet 5 mg PO .DAILY@NOON 90 days #90 01/19/23 tabs finasteride 5 mg tablet 5 mg PO DAILY 90 days #90 tabs 01/27/23 albuterol sulfate 90 mcg/actuation 2 puff inhalation Q4-6H PRN 03/10/23 aerosol inhaler shortness of breath or wheezing 30 days #8.5 grams atorvastatin 80 mg tablet 80 mg PO DAILY #90 tabs 04/21/23 levofloxacin 500 mg tablet 500 mg PO daily 3 days #3 tabs 07/31/23 meclizine 25 mg tablet 50 mg (2 x 25 mg) PO BID PRN 07/31/23 dizziness #20 tabs Allergies Allergy/AdvReac Type Severity Reaction Status Date / Time No Known Allergies Allergy Verified 03/10/23 13:12 [No Known Allergies*] COUNT INCLUDES THE [facility] Past Medical History Medical History Allergic rhinitis COPD (chronic obstructive pulmonary disease) History of smoking at least 1 pack per day for at least 30 years Former smoker SOB (shortness of breath) on exertion Elevated cholesterol CAD (coronary artery disease) HTN (hypertension) Acute coronary syndrome HTN (hypertension) Phimosis BPH w urinary obs/LUTS Prostate nodule Elevated PSA Surgical History Hx of colonoscopy Cholelithiasis (09/08/22) Stented coronary artery History of tonsillectomy Family History Family History Father Prostate cancer Diabetes Mother Heart attack Social History Social History Are you a primary animal care technician to a significant other at home: No Do you presently have visiting nurse or other home services: No Alcohol intake: current Alcohol intake frequency: does not drink Patient Tobacco Use Status: Former Tobacco user Quit Date: 2013 Tobacco use type: Cigarette Years Smoked: 62 Smoked in Last 30 Days: No Use of substances other than those prescribed or required for medical reasons: No Advance Directives: Yes Advance Directives on File: Yes Advance Directives Date on File: 09/08/22 Physical Exam ED Vital Signs: Vital Signs - 24 hr 07/31/23 18:51 07/31/23 21:41 07/31/23 21:42 Temperature 97.7 F Pulse Rate 50 59 64 Respiratory Rate 17 Blood Pressure 175/75 H 146/68 H 158/65 H Pulse Oximetry 94 Oxygen Delivery Method Room Air 07/31/23 21:44 Temperature Pulse Rate 59 Respiratory Rate Blood Pressure 145/69 H Pulse Oximetry Oxygen Delivery Method BMI result Body Mass Index 25.4 Medications Administered Discontinued Medications Generic Name Dose Route Start Last Admin Trade Name Freq PRN Reason Stop Dose Admin Iohexol 85 ml 07/31/23 20:10 07/31/23 20:11 Iohexol 350 Mg/Ml 100 Ml Infus..Btl IV 07/31/23 20:11 85 ml ONCE ONE Administration Meclizine HCl 50 mg 07/31/23 20:32 07/31/23 20:41 Meclizine Hcl 25 Mg Tablet PO 07/31/23 20:33 50 mg ONCE ONE Administration Medical Decision Making Medical Decision Making MDM Narrative: -my interpretation of labs: A baseline hematology, chronically elevated bicarb, LFTs -orthostatic vitals negative -my interpretation of head CT: No intracranial bleed. -patient was given p.o. meclizine. -after patient received a dose of meclizine, patient states that he feels 100% back to baseline. Patient ambulatory without assistance. Good truncal stability. Differential Diagnosis Differential Diagnoses: The differential diagnosis associated with the presentation includes (TIA, CVA, vertigo, orthostatic hypotension) Admission/Observation Consideration of admission/observation: Escalation of care including admission/observation considered (Given patient's presentation physical exam on arrival, admission was considered) Lab Data MDM Lab Attestation statement: I reviewed the patient's lab results. 07/31/23 19:25 07/31/23 19:25 Labs: Lab Results 07/31/23 07/31/23 Range/Units 19:25 19:38 WBC 7.0 (4.8-10.8) X10*3/uL RBC 4.23 L (4.60-5.80) X10*6/uL Hgb 12.4 L (14.0-18.0) g/dl Hct 37.3 L (42.0-52.0) % MCV 88.2 (80.0-98.0) fL MCH 29.3 (27.0-33.0) pg MCHC 33.2 (31.0-36.0) g/dl RDW 12.6 (11.0-16.0) % Plt Count 153 L (160-400) X10*3/uL MPV 12.2 (9.4-12.4) fL Immature Gran % (Auto) 0.4 (0.0-0.4) % Neut % (Auto) 61.4 (45-73) % Lymph % (Auto) 25.9 (20-40) % Dade % (Auto) 7.2 (2-11) % Eos % (Auto) 4.5 H (0-4) % Baso % (Auto) 0.6 (0-2) % Lymph # (Auto) 1.8 (1.2-4.9) X10*3/uL Dade # (Auto) 0.5 (0.1-1.2) X10*3/uL Eos # (Auto) 0.3 (0.0-0.4) X10*3/uL Baso # (Auto) 0.0 (0.0-0.2) X10*3/uL Abs Immat Gran (auto) 0.03 (0.00-0.03) X10*3/uL Absolute Neuts (auto) 4.3 (2.0-8.3) x10*3/uL Absolute Nucleated RBC 0.000 (0.0-0.012) X10*3/uL Nucleated RBC % (auto) 0.0 (0.0-0.2) /100WBC PT 12.4 (11.1-13.3) SEC INR 1.0 (0.9-1.1) Sodium 143 (135-145) mmol/L Potassium 4.2 (3.3-5.1) mmol/L Chloride 104 (96-108) mmol/L Carbon Dioxide 34 H (22-29) mmol/L Anion Gap 9 L (12-20) BUN 19 H (9-16) mg/dL Creatinine 1.00 (0.5-1.4) mg/dL Estim Creat Clear Calc 54.7 Estimated GFR > 60 Random Glucose 127 H (60-115) mg/dL Calcium 9.4 (8.4-10.2) mg/dL Total Bilirubin 0.6 (0.0-1.0) mg/dL Direct Bilirubin 0.2 (0.0-0.5) mg/dL AST 13 (5-37) U/L ALT 10 (0-40) U/L Alkaline Phosphatase 73 (39-117) U/L Troponin I High Sens 3.6 (<3.5-35.0) ng/L Total Protein 6.2 L (6.5-8.0) g/dL Albumin 3.6 (3.5-5.0) g/dL Urine Opiates Screen Not Detected (Not Detect) Urine Fentanyl Screen Not Detected (Not Detect) Ur Barbiturates Screen Not Detected (Not Detect) Ur Phencyclidine Scrn Not Detected (Not Detect) Ur Amphetamines Screen Not Detected (Not Detect) U Benzodiazepines Scrn Not Detected (Not Detect) Urine Cocaine Screen Not Detected (Not Detect) U Marijuana (THC) Screen Not Detected (Not Detect) Ethyl Alcohol < 10 mg/dL Independent Interpretation I performed an independent interpretation of an: CT Scan Radiology Impression Discussion of test interpretation with radiology: I have reviewed the radiologist's reading. Radiologist Impression: BRAIN: No acute intracranial hemorrhage or infarct. The gaffney-white matter differentiation is preserved. Patchy hypodensity involving the periventricular deep white matter compatible with small vessel ischemic disease. Diffuse widening of the sulci with associated ex vacuo dilation of the ventricles compatible with global cerebral atrophy. No midline shift or hydrocephalus. No acute extra-axial fluid collections. The osseous structures are unremarkable. No orbital pathology. Mild mucosal thickening of the left maxillary sinus. The mastoid air cells are clear. Atherosclerotic calcifications of the bilateral carotid siphons. CTA NECK: Three-vessel aortic arch. The innominate and bilateral subclavian arteries are patent. There is atherosclerotic calcifications at the origin of the left subclavian artery without significant stenosis. The origins and cervical segments of the common carotid arteries as well as the common carotid artery bifurcations are patent bilaterally. The cervical segments of the internal carotid arteries are also patent bilaterally. The origins and cervical segments of the vertebral arteries are patent bilaterally. No hemodynamically significant stenosis, dissection, or aneurysm. The visualized branches of the external carotid arteries are unremarkable. CTA HEAD: Mild atherosclerotic calcifications of the bilateral carotid siphons. Anterior circulation: The petrous, cavernous, and supraclinoid segments of the internal carotid arteries are patent bilaterally. Redemonstration of ectasia involving the cavernous ICAs bilaterally. The major branches of the anterior and middle cerebral arteries as well as the anterior communicating artery complex are patent. There is also ectasia of the anterior, indicating artery complex. Posterior circulation: The intracranial vertebral arteries are patent bilaterally. The basilar artery is normal in caliber and course. The posterior cerebral and superior cerebellar arteries arise normally from the basilar summit. Left posterior cerebral artery. On delayed imaging, the venous structures demonstrate normal contrast opacification. No filling defect. No abnormal intraparenchymal enhancement. Soft tissues: No suspicious neck mass or cervical adenopathy. Lungs: Emphysematous changes. Biapical scarring. Bones: No acute osseous abnormality. No lytic or blastic osseous lesions. Multilevel degenerative changes of the visualized spine. CT/CT angio head neck IMPRESSION: -No acute intracranial hemorrhage or edematous infarct. -No hemodynamically significant stenosis or proximal occlusion of the vasculature of the head and neck. Ectasia of the bilateral cavernous ICAs and the anterior communicating artery. No saccular aneurysm. Critical Care Time Critical Care Time Critical Care Time: Yes Total Critical Care Time: 45 Attestation: I have personally provided critical care time. Time includes review of lab data, radiology results, discussion with consultants, and monitoring for potential decompensation. Intervention performed as documented. Discharge Plan Discharge Clinical Impression: Dizziness Patient Disposition: Home, Self-Care Instructions: Dizziness (ED) Additional Instructions: Please follow-up with your primary care physician tomorrow. If you have any worsening or new symptoms, please return to the emergency room or call 911 Prescriptions: New meclizine 25 mg tablet 50 mg PO BID PRN (Reason: dizziness) Qty: 20 0RF No Action carvedilol 3.125 mg tablet 3.125 mg PO BID 90 Days Qty: 180 3RF clopidogrel 75 mg tablet 75 mg PO .DAILY@NOON 90 Days Qty: 90 3RF lisinopril 5 mg tablet 5 mg PO .DAILY@NOON 90 Days Qty: 90 3RF atorvastatin 80 mg tablet 80 mg PO DAILY Qty: 90 3RF multivitamin Tablet 1 tab PO DAILY aspirin [Adult Low Dose Aspirin] 81 mg tablet,delayed release (DR/EC) 81 mg PO .DAILY@NOON finasteride 5 mg tablet 5 mg PO DAILY 90 Days Qty: 90 1RF albuterol sulfate 90 mcg/actuation HFA aerosol inhaler 2 puff inhalation Q4-6H PRN (Reason: shortness of breath or wheezing) 30 Days Qty: 8.5 1RF levofloxacin 500 mg tablet 500 mg PO daily 3 Days Qty: 3 0RF Rx Instructions: take 1 tablet day before procedure, 1 tablet day of procedure and 1 tablet day after procedure
[2023-07-31 19:32] LABS: Basophils Percent Auto 0.6 % (0-2); Eosinophils Absolute Auto 0.3 X10*3/uL (0.0-0.4); Eosinophils Percent Auto 4.5 % (0-4); Hematocrit 37.3 % (42.0-52.0); Hemoglobin 12.4 g/dl (14.0-18.0); Imm Gran Abs Auto 0.03 X10*3/uL (0.00-0.03); Imm Gran Pct Auto 0.4 % (0.0-0.4); Lymphocytes Absolute Auto 1.8 X10*3/uL (1.2-4.9); Lymphocytes Percent Auto 25.9 % (20-40); Mean Corpuscular HGB Conc 33.2 g/dl (31.0-36.0); Mean Corpuscular Hemoglobin 29.3 pg (27.0-33.0); Mean Corpuscular Volume 88.2 fL (80.0-98.0); Mean Platelet Volume 12.2 fL (9.4-12.4); Monocytes Absolute Auto 0.5 X10*3/uL (0.1-1.2); Monocytes Percent Auto 7.2 % (2-11); Neutrophils Absolute Auto 4.3 x10*3/uL (2.0-8.3); Neutrophils Percent Auto 61.4 % (45-73); Platelet Count 153 X10*3/uL (160-400); Red Blood Count 4.23 X10*6/uL (4.60-5.80); Red Cell Distribution Width 12.6 % (11.0-16.0)
[2023-07-31 19:37] LABS: Prothrombin Time 12.4 SEC (11.1-13.3)
[2023-07-31 19:45] LABS: Ethanol < 10 mg/dL
[2023-07-31 19:46] LABS: Alanine Aminotransferase 10 U/L (0-40); Albumin Level 3.6 g/dL (3.5-5.0); Alkaline Phosphatase 73 U/L (39-117); Anion Gap 9 (12-20); Aspartate Amino Transferase 13 U/L (5-37); Bilirubin Direct 0.2 mg/dL (0.0-0.5); Bilirubin Total 0.6 mg/dL (0.0-1.0); Blood Urea Nitrogen 19 mg/dL (9-16); Calcium 9.4 mg/dL (8.4-10.2); Carbon Dioxide 34 mmol/L (22-29); Chloride 104 mmol/L (96-108); Creatinine Clr Calc Pharmacy 54.7; Estimated Glomerular Filt Rate > 60; Glucose Random 127 mg/dL (60-115); Potassium 4.2 mmol/L (3.3-5.1); Sodium 143 mmol/L (135-145); Total Protein 6.2 g/dL (6.5-8.0)
[2023-07-31 19:51] LABS: Amphetamine Screen Urine Not Detected (Not Detect); Barbiturates, Urine Not Detected (Not Detect); Benzodiazepines Screen Urine Not Detected (Not Detect); Cannabinoid Screen Urine Not Detected (Not Detect); Cocaine Screen Urine Not Detected (Not Detect); Fentanyl, urine Not Detected (Not Detect); Opiate Screen Urine Not Detected (Not Detect); Phencyclidine Screen Urine Not Detected (Not Detect)
[2023-07-31 19:53] LABS: Troponin-I High Sensitivity 3.6 ng/L (<3.5-35.0)
[2023-07-31] MEDS: iohexoL 350 MG/ML 100 ML INFUS..BTL 85 ML IV (20:11)
[2023-07-31] MEDS: Meclizine HCl 25 MG TABLET 50 MG PO (20:41)
--- NOTE | 2023-07-31 21:40 | PC.NURSE ---
this rn assumed care of pt @ 1900. pt calm and cooperative pt at bedside. 20g iv placed in L AC. swallow eval passed pt medicated according to jul. pt disposition pending per CT results
--- NOTE | 2023-07-31 23:26 | PC.NURSE ---
carding machine feeder ambulated pt per dr mejia order. pt tolerated well. reports no weakness/ dizziness md made aware
== END 2023-07-31 23:39 | disposition home or self-care (01) ==
PROVIDERS: Emergency Provider Emergency Medicine; PCP Internal Medicine
DX: R42 Dizziness and giddiness (principal); I10 Essential (primary) hypertension; J44.9 Chronic obstructive pulmonary disease, unspecified; R97.20 Elevated prostate specific antigen [PSA]; N40.3 Nodular prostate with lower urinary tract symptoms; N13.8 Other obstructive and reflux uropathy
CPT/HCPCS: 36415; 51798; 70496; 70498; 80048; 80076; 80307; 84484; 85025; 85610; 99212; 99284; Q9967

== ENCOUNTER 2023-09-24 12:52 | Outpatient (REF) | payer MEDICARE, SELFPAY ==
[2022-12-29 15:18] VITALS: BP 120/60; BMI 25.2
[2023-09-24 13:35] VITALS: BP 180/84; PULSE 53; RESP 19; O2SAT 90; BMI 23.7
--- NOTE | 2023-09-24 13:59 | P.OP_ITS ---
Operative Note Operative Note Date of Service: 09/24/23 Narrative: Preoperative diagnosis: Elevated PSA Postoperative diagnosis: Elevated PSA Procedure: 1. transrectal ultrasound measurement of prostate 2. transrectal ultrasound-guided pudendal nerve block 3. transrectal ultrasound-guided prostate biopsy 12 core Surgeon: Dr. Santana Jarrett Anesthetic: 10cc 1% lidocaine Indications for procedure: Elevated PSA - 5.3 with nodule Counselling: Technical aspects, risks and benefits of proposed procedure were discussed in full. All questions have been answered, written consent has been obtained and patient agrees to proceed. Procedure: The patient was brought into the procedure area and placed in a left lateral d ecubitus position. Patient identity confirmed. Perioperative antibiotics confirmed. Safety pause time out performed. ANIA performed to dilate rectal sphincter Iodine 10cc with Gel was placed per rectum to reduce infection risk Eight hertz [place] ultrasound probe was placed transrectally without difficulty. The prostate was visualized. The portals were well demarcated, seminal vesicles were normal. No cystic structures were noted YES calcifications were noted at the surgical margin The prostate was otherwise HOMOGENEOUS in nature The prostate was measured in 3 dimensions Prostatic Width: 4.7 Prostatic height: 3.6 Urethral length:4.3 Total volume equals : 38 gm An ultrasound-guided pudendal nerve block was performed using a 22 gauge spinal needle in the sagittal plane. 4 cc of 1% lidocaine placed at the junction of each seminal vesicle and 2 cc placed at the apex of the prostate. A 12 core biopsy was performed with 6 cores each side using an 18 gauge prostate biopsy gun.. Two cores were taken at the apex, mid and base. Cores were spaced between lateral and medial. He tolerated the procedure well, minimal rectal bleeding. Was able to ambulate to bathroom after 5 minutes. Printed instructions regarding antibiotic use and common side effects such as low-grade temperature, potential infection and bleeding were given Pathology: 12 core prostate biopsy.
== END 2023-09-24 12:53 | disposition home or self-care (01) ==
LOC: HO.MS 12:52
PROVIDERS: PCP Internal Medicine; Visit Provider Urology
PROC: (CPT 55700; principal; 2023-09-24 13:30)
DX: C61 Malignant neoplasm of prostate (principal); R97.20 Elevated prostate specific antigen [PSA]
CPT/HCPCS: 55700; 76942; 88305

== ENCOUNTER → 2023-09-24 12:52 | Outpatient (BNV) | payer MEDICARE, SELFPAY ==
[2022-12-29 15:18] VITALS: BP 120/60; BMI 25.2
== END ==
PROVIDERS: PCP Internal Medicine; Visit Provider Urology
DX: R97.20 Elevated prostate specific antigen [PSA] (principal)
CPT/HCPCS: 55700; 76942

== ENCOUNTER 2023-10-09 15:24 | Outpatient (AMB) | payer MEDICARE, SELFPAY ==
[2022-12-29 15:18] VITALS: BP 120/60; BMI 25.2
--- NOTE | 2023-10-09 15:47 | MHC.OFFVIS ---
Intake Visit Reasons: Prostate Bx results Intake Note: Patient is present for Biopsy results Allergies No Known Allergies [No Known Allergies*] Allergy (Verified 03/10/23 13:12) Medication List - Last Reconciled 10/09/23 by Santana Jarrett MD albuterol sulfate 90 mcg/actuation 2 puffs inhalation Q4-6H PRN 30 days aspirin (Adult Low Dose Aspirin) 81 mg PO .DAILY@NOON atorvastatin 80 mg PO DAILY carvedilol 3.125 mg PO BID 90 days clopidogrel 75 mg PO .DAILY@NOON 90 days finasteride 5 mg PO DAILY 90 days levofloxacin 500 mg PO daily 3 days lisinopril 5 mg PO .DAILY@NOON 90 days meclizine 50 mg (2 x 25 mg) PO BID PRN multivitamin 1 tab PO DAILY HPI Comments Details: Pj is a very pleasant male. He is a patient of Dr. Gaxiola. He is seen for the following urologic issues - elevated PSA - prostate nodule - phimosis - Prostate Cancer PVR 20 cc PSA 5.3 Follow-up for prostate biopsy Plan imaging and follow-up Prostate cancer high volume unfavorable intermediate 4+3=7 (left apex lateral, right base lateral, right apex lateral), 3+4=7 (left mid medial, right mid medial, right apex medial), 3+3=6 (left base medial, left mid lateral, right base medial) Grade group: 4, 3, 2 and 1 Tumor quantitation: Number cores positive: 10 Total number of cores: 12 % of tissue involved: 30-35% of all tissue examined Periprostatic fat inv.: Not identified Seminal vesicle inv.: Not identified Perineural inv.: Present LVI: Not identified Prostate nodule/elevated PSA Minimal urinary issues - Only getting up once or twice at night PSA - 07/01 7.1/5.9 19%, 12/29 3.8, 03/01 3.0 F 30%, 08/31 4.6, 01/31 4.1 20% on finasteride, 08/01 5.3 21% ANIA nodule on left base Discussion regarding prostate cancer he is at 10-15 % risk Good response to finasteride with noticeable improvement in stream [facility] Medical History Allergic rhinitis COPD (chronic obstructive pulmonary disease) History of smoking at least 1 pack per day for at least 30 years Former smoker SOB (shortness of breath) on exertion Elevated cholesterol CAD (coronary artery disease) HTN (hypertension) Acute coronary syndrome HTN (hypertension) Phimosis BPH w urinary obs/LUTS Prostate nodule Elevated PSA Surgical History Hx of colonoscopy Cholelithiasis (09/08/22) Stented coronary artery History of tonsillectomy Family History Father Prostate cancer Diabetes Mother Heart attack Social History Are you a primary skin care consultant to a significant other at home: No Do you presently have visiting nurse or other home services: No Alcohol intake: current Alcohol intake frequency: does not drink Patient Tobacco Use Status: Former Tobacco user Tobacco use type: Cigarette Years Smoked: 62 Advance Directives Date on File: 09/08/22 Review of Systems Const Denies chills and Denies fever(s) Card Reports no additional complaints and Denies syncope Resp Denies cough GI Denies abdominal pain and Denies heartburn Reports as per HPI and Denies change in libido Neuro Denies syncope Psych Denies change in libido Endo Denies change in libido Physical Exam Const General: cooperative, healthy appearing, comfortable and no acute distress Orientation/consciousness: patient oriented x3 HEENT Face and sinus: Yes normal facial exam Mouth: moist mucous membranes Neck Neck: Yes normal visual inspection, Yes full ROM and Yes trachea midline Chest Chest palpation & inspection: normal inspection of the chest Resp Effort & Inspection: normal respiratory effort, able to speak in complete sentences and no respiratory distress GI Inspection: Yes normal to inspection Back/Spine/Pelvis Cervical Spine: normal cervical lordosis Thoracic/Lumbar Spine: thoracic and lumbar spine normal to inspection Skin General skin exam: no rashes or lesions noted Neuro General: patient oriented x3, gait normal, tone normal and moves all extremities Extrem General: Yes normal to inspection and Yes capillary refill normal Assessment & Plan Assessment & Plan (1) Prostate cancer: Code(s): C61 - Malignant neoplasm of prostate Category: Medical Plan Plan PET-CT Orders: Orders PET CT fusion skull to thigh 1 Month C61 - Malignant neoplasm of prostate Patient Instructions: Imaging studies, laboratory and physical exam results were discussed and reviewed in detail. No major barriers to patient understanding were identified. An opportunity to ask questions regarding the treatment plan was provided. All questions were answered. The patient expressed understanding and agreement with the above treatment plan. The patient is aware they should contact our office by phone for worsening of their current condition or the appearance of new urologic symptoms. Compliance is encouraged with any medications and followup testing that is ordered. It is a privilege to participate in the urologic care of your patient. If you have any questions or concerns regarding treatment for the above conditions, or other urologic issues, please do not hesitate to contact me. The office telephone contact is [phone]. This note is constructed using voice recognition software. While every effort has been made to ensure accuracy medical economics consultant errors may have been included. Yours sincerely, Dr Santana Jarrett MD, [facility] - Urology Providers of Expert, Compassionate Care for the Genitourinary System Coding Level of Care Code Est Pt Level 4 (00583) Diagnoses Prostate cancer C61
== END 2023-10-09 16:11 | disposition home or self-care (01) ==
PROVIDERS: PCP Internal Medicine; Visit Provider Urology
DX: C61 Malignant neoplasm of prostate (principal)
CPT/HCPCS: 99214

== ENCOUNTER → 2023-10-09 15:24 | Outpatient (BNVA) | payer MEDICARE, SELFPAY ==
[2022-12-29 15:18] VITALS: BP 120/60; BMI 25.2
== END ==
PROVIDERS: PCP Internal Medicine; Visit Provider Urology
DX: C61 Malignant neoplasm of prostate (principal)
CPT/HCPCS: 99212

== ENCOUNTER 2023-10-12 07:51 | Outpatient (REF) | payer MEDICARE, SELFPAY ==
[2022-12-29 15:18] VITALS: BP 120/60; BMI 25.2
[2023-10-12 09:56] LABS: Basophils Absolute Auto 0.1 X10*3/uL (0.0-0.2); Basophils Percent Auto 0.8 % (0-2); Eosinophils Absolute Auto 0.4 X10*3/uL (0.0-0.4); Eosinophils Percent Auto 5.3 % (0-4); Hematocrit 38.1 % (42.0-52.0); Hemoglobin 12.5 g/dl (14.0-18.0); Imm Gran Abs Auto 0.03 X10*3/uL (0.00-0.03); Imm Gran Pct Auto 0.5 % (0.0-0.4); Lymphocytes Absolute Auto 2.3 X10*3/uL (1.2-4.9); Lymphocytes Percent Auto 34.9 % (20-40); MANUAL DIFF FLAG SCAN; Mean Corpuscular HGB Conc 32.8 g/dl (31.0-36.0); Mean Corpuscular Hemoglobin 29.5 pg (27.0-33.0); Mean Corpuscular Volume 89.9 fL (80.0-98.0); Monocytes Absolute Auto 0.5 X10*3/uL (0.1-1.2); Monocytes Percent Auto 7.4 % (2-11); Neutrophils Absolute Auto 3.4 x10*3/uL (2.0-8.3); Neutrophils Percent Auto 51.1 % (45-73); PLT CLUMP 1; Red Blood Count 4.24 X10*6/uL (4.60-5.80); Red Cell Distribution Width 12.8 % (11.0-16.0); SCAN SMEAR FLAG 1
[2023-10-12 10:18] LABS: Alanine Aminotransferase 14 U/L (0-40); Albumin Level 3.7 g/dL (3.5-5.0); Alkaline Phosphatase 60 U/L (39-117); Anion Gap 12 (12-20); Aspartate Amino Transferase 19 U/L (5-37); Bilirubin Total 0.8 mg/dL (0.0-1.0); Blood Urea Nitrogen 26 mg/dL (9-16); Calcium 9.3 mg/dL (8.4-10.2); Carbon Dioxide 30 mmol/L (22-29); Chloride 107 mmol/L (96-108); Cholesterol 129 mg/dL (<200); Estimated Glomerular Filt Rate > 60; Glucose Fasting 96 mg/dL (60-99); HDL Cholesterol 33 mg/dL (>40); LDL Cholesterol Calculated 78 mg/dL (<100); Potassium 4.5 mmol/L (3.3-5.1); Sodium 144 mmol/L (135-145); Total Protein 6.1 g/dL (6.5-8.0); Triglycerides 92 mg/dL (<150)
[2023-10-12 10:56] LABS: Mean Platelet Volume 13.7 fL (9.4-12.4); Platelet Count 144 X10*3/uL (160-400); SLIDE REVIEW VERIFIED; White Blood Count 6.6 X10*3/uL (4.8-10.8)
== END 2023-10-12 07:52 | disposition home or self-care (01) ==
LOC: HO.10HDL 07:51
PROVIDERS: Visit Provider Internal Medicine
DX: E78.00 Pure hypercholesterolemia, unspecified (principal); I25.42 Coronary artery dissection; I10 Essential (primary) hypertension; N40.0 Benign prostatic hyperplasia without lower urinary tract symptoms
CPT/HCPCS: 36415; 80053; 80061; 85025

== ENCOUNTER 2023-11-11 11:20 | Outpatient (AMB) | payer MEDICARE, SELFPAY ==
[2022-12-29 15:18] VITALS: BP 120/60; BMI 25.2
--- NOTE | 2023-11-11 11:56 | MHC.OFFVIS ---
Intake Visit Reasons: 4 week follow up Intake Note: Patient is present for Follow up Med; Finasteride Allergies No Known Allergies [No Known Allergies*] Allergy (Verified 03/10/23 13:12) Medication List - Last Reconciled 11/11/23 by Santana Jarrett MD albuterol sulfate 90 mcg/actuation 2 puffs inhalation Q4-6H PRN 30 days aspirin (Adult Low Dose Aspirin) 81 mg PO .DAILY@NOON atorvastatin 80 mg PO DAILY carvedilol 3.125 mg PO BID 90 days clopidogrel 75 mg PO .DAILY@NOON 90 days finasteride 5 mg PO DAILY 90 days levofloxacin 500 mg PO daily 3 days lisinopril 5 mg PO .DAILY@NOON 90 days meclizine 50 mg (2 x 25 mg) PO BID PRN multivitamin 1 tab PO DAILY HPI Comments Details: Pj is a very pleasant male. He is a patient of Dr. Gaxiola. He is seen for the following urologic issues - elevated PSA - prostate nodule - phimosis PVR 20 cc PSA 5.3 Nodular prostate on exam Suggests prostate biopsy Restart finasteride Prostate nodule/elevated PSA Minimal urinary issues - Only getting up once or twice at night PSA - 07/01 7.1/5.9 19%, 12/29 3.8, 03/01 3.0 F 30%, 08/31 4.6, 01/31 4.1 20% on finasteride, 08/01 5.3 21% ANIA nodule on left base Discussion regarding prostate cancer he is at 10-15 % risk Good response to finasteride with noticeable improvement in stream PFSH Medical History Allergic rhinitis COPD (chronic obstructive pulmonary disease) History of smoking at least 1 pack per day for at least 30 years Former smoker SOB (shortness of breath) on exertion Elevated cholesterol CAD (coronary artery disease) HTN (hypertension) Acute coronary syndrome HTN (hypertension) Phimosis BPH w urinary obs/LUTS Prostate nodule Elevated PSA Surgical History Hx of colonoscopy Cholelithiasis (09/08/22) Stented coronary artery History of tonsillectomy Family History Father Prostate cancer Diabetes Mother Heart attack Social History Are you a primary customer care associate to a significant other at home: No Do you presently have visiting nurse or other home services: No Alcohol intake: current Alcohol intake frequency: does not drink Patient Tobacco Use Status: Former Tobacco user Tobacco use type: Cigarette Years Smoked: 62 Advance Directives Date on File: 09/08/22 Review of Systems Const Denies chills and Denies fever(s) Card Reports no additional complaints and Denies syncope Resp Denies cough GI Denies abdominal pain and Denies heartburn Reports as per HPI and Denies change in libido Neuro Denies syncope Psych Denies change in libido Endo Denies change in libido Physical Exam Const General: cooperative, healthy appearing, comfortable and no acute distress Orientation/consciousness: patient oriented x3 HEENT Face and sinus: Yes normal facial exam Mouth: moist mucous membranes Neck Neck: Yes normal visual inspection, Yes full ROM and Yes trachea midline Chest Chest palpation & inspection: normal inspection of the chest Resp Effort & Inspection: normal respiratory effort, able to speak in complete sentences and no respiratory distress GI Inspection: Yes normal to inspection Back/Spine/Pelvis Cervical Spine: normal cervical lordosis Thoracic/Lumbar Spine: thoracic and lumbar spine normal to inspection Skin General skin exam: no rashes or lesions noted Neuro General: patient oriented x3, gait normal, tone normal and moves all extremities Extrem General: Yes normal to inspection and Yes capillary refill normal Assessment & Plan Assessment & Plan (1) Prostate cancer: Code(s): C61 - Malignant neoplasm of prostate Category: Medical (2) Abdominal aneurysm: Code(s): I71.40 - Abdominal aortic aneurysm, without rupture, unspecified Category: Medical Plan Four month follow-up Refer vascular surgery for aneurysm assessment Orders: Orders PSA,Total (Free>4and<10) 4 Months C61 - Malignant neoplasm of prostate Referrals Vascular Surgery Referral I71.40 - Abdominal aortic aneurysm, without rupture, unspecified Patient Instructions: Imaging studies, laboratory and physical exam results were discussed and reviewed in detail. No major barriers to patient understanding were identified. An opportunity to ask questions regarding the treatment plan was provided. All questions were answered. The patient expressed understanding and agreement with the above treatment plan. The patient is aware they should contact our office by phone for worsening of their current condition or the appearance of new urologic symptoms. Compliance is encouraged with any medications and followup testing that is ordered. It is a privilege to participate in the urologic care of your patient. If you have any questions or concerns regarding treatment for the above conditions, or other urologic issues, please do not hesitate to contact me. The office telephone contact is [phone]. This note is constructed using voice recognition software. While every effort has been made to ensure accuracy legal research analyst errors may have been included. Yours sincerely, Dr Santana Jarrett MD, [facility] - Urology Providers of Expert, Compassionate Care for the Genitourinary System Coding Level of Care Code Est Pt Level 3 (60104) Diagnoses Prostate cancer C61 Abdominal aneurysm I71.40
== END 2023-11-11 12:07 | disposition home or self-care (01) ==
PROVIDERS: PCP Internal Medicine; Visit Provider Urology
DX: C61 Malignant neoplasm of prostate (principal); I71.40 Abdominal aortic aneurysm, without rupture, unspecified
CPT/HCPCS: 99213

== ENCOUNTER → 2023-11-11 11:20 | Outpatient (BNVA) | payer MEDICARE, SELFPAY ==
[2022-12-29 15:18] VITALS: BP 120/60; BMI 25.2
== END ==
PROVIDERS: PCP Internal Medicine; Visit Provider Urology
DX: C61 Malignant neoplasm of prostate (principal)
CPT/HCPCS: 99212

== ENCOUNTER 2024-03-01 14:26 | Outpatient (AMB) | payer MEDICARE, SELFPAY ==
[2022-12-29 15:18] VITALS: BP 120/60; BMI 25.2
--- NOTE | 2024-03-01 14:32 | MHC.OFFVIS ---
Intake Visit Reasons: [facility] [place], [place] Urology referral for AAA- 4.[address] scan Intake Note: New patient presents for AAA. No complaints , no symptoms. Accompanied by: Family/Other Allergies No Known Allergies [No Known Allergies*] Allergy (Verified 03/01/24 14:35) HPI HPI [facility] [place] [place] Urology referral for AAA- 4.[address] scan: Details: Very pleasant 88-year-old gentleman presents for evaluation regarding an aortic aneurysm. He was actually recently diagnosed with prostate cancer. He had undergone a PET-CT and had an incidental finding of a 4.1 cm aortic aneurysm. Of note he had no evidence of metastatic prostate cancer. Upon discussion with him this is the 1st time he has heard of this. He quit smoking nearly 14 years ago and prior to that he was smoking about a half a pack per day. He remains fairly active and is able to do all his yd work. He now presents to us for vascular evaluation. [facility] Medical History Allergic rhinitis COPD (chronic obstructive pulmonary disease) History of smoking at least 1 pack per day for at least 30 years Former smoker SOB (shortness of breath) on exertion Elevated cholesterol CAD (coronary artery disease) HTN (hypertension) Acute coronary syndrome HTN (hypertension) Phimosis BPH w urinary obs/LUTS Prostate nodule Elevated PSA Surgical History Hx of colonoscopy Cholelithiasis (09/08/22) Stented coronary artery History of tonsillectomy Family History Father Prostate cancer Diabetes Mother Heart attack Social History Are you a primary rn patient care to a significant other at home: No Do you presently have visiting nurse or other home services: No Alcohol intake: current Alcohol intake frequency: does not drink Patient Tobacco Use Status: Former Tobacco user Tobacco use type: Cigarette Years Smoked: 62 Advance Directives Date on File: 09/08/22 Review of Systems Const All systems reviewed & are unremarkable except as noted in HPI and below Reports no additional complaints ENT Reports Normal hearing present Card Denies chest pain, Denies chest pain at rest, Denies chest pain with activity and Denies pedal edema Resp Denies cough GI Denies abdominal pain Musc Denies abnormal gait, Denies muscle cramps and Denies radiating pain into limb Skin/Breast Denies skin ulcer and Denies wounds Neuro Reports Normal hearing present and Denies abnormal gait Psych Reports no additional complaints Physical Exam Const General: cooperative, healthy appearing and comfortable Orientation/consciousness: oriented to person, oriented to place and oriented to time HEENT Head: Yes normal to inspection Neck Neck: Yes normal visual inspection Carotids: no bruits Chest Chest palpation & inspection: normal inspection of the chest Resp Effort & Inspection: normal respiratory effort and able to speak in complete sentences Auscultation: clear to auscultation bilaterally, no crackles, no rales, no rhonchi and no wheezes Cardio Rate: regular rate Rhythm: regular rhythm Heart sounds: S1 normal heart sound present and S2 normal heart sound present Bruits: no carotid bruits Peripheral pulses: Peripheral pulses 2+ throughout GI Inspection: Yes normal to inspection Skin Wounds: no wounds Hair: normal Neuro General: oriented to person, oriented to place and oriented to time Cranial nerves: Yes CN's II-XII intact bilaterally and Yes Normal hearing present Cognition (Neuro): normal cognition Motor exam (neuro): 5/5 motor strength present throughout Extrem Other: venous exam: No significant superficial varicosities or spider telangiectasias, minimal edema General: No clubbing, No cyanosis and No edema Psych Appearance: grossly normal Mental Status: mental status grossly normal Speech and movement: Normal speech and movement present Results Reviewed Results Reviewed: PET-CT imaging dated 11/02/2023 demonstrates an infrarenal aortic aneurysm measuring 4.1 x 4.4 cm left iliac 1.9 right iliac 1.8 Assessment & Plan Assessment & Plan (1) Abdominal aneurysm: Code(s): I71.40 - Abdominal aortic aneurysm, without rupture, unspecified Category: Medical Plan: In short patient has radiologic evidence of a AAA on 4.1 cm on PET-CT. We have discussed the pathophysiology of aortic aneurysms and the risk of ruptures. We have discussed rupture risk based on size. In addition we have discussed conservative measures and risk factor modification for prevention of increase in size of the aneurysm. the patient is scheduled for surveillance follow-up in approximately 6 months. Should that be stable he would require annual surveillance. Thank you for allowing us to participate in the care of this patient Orders: Orders US abdominal aortic aneurysm 6 Months I71.40 - Abdominal aortic aneurysm, without rupture, unspecified Coding Level of Care Code New Pt Level 4 (26770) Diagnoses Abdominal aneurysm I71.40
== END 2024-03-01 15:04 | disposition home or self-care (01) ==
PROVIDERS: PCP Internal Medicine; Visit Provider Surgery Vascular Surgery
DX: I71.40 Abdominal aortic aneurysm, without rupture, unspecified (principal)
CPT/HCPCS: 99204

== ENCOUNTER → 2024-03-01 14:26 | Outpatient (BNVA) | payer MEDICARE, SELFPAY ==
[2022-12-29 15:18] VITALS: BP 120/60; BMI 25.2
== END ==
PROVIDERS: PCP Internal Medicine; Visit Provider Surgery Vascular Surgery
DX: I71.40 Abdominal aortic aneurysm, without rupture, unspecified (principal); Z87.891 Personal history of nicotine dependence
CPT/HCPCS: 99202

== ENCOUNTER 2024-03-07 08:13 | Outpatient (REF) | payer MEDICARE, SELFPAY ==
[2022-12-29 15:18] VITALS: BP 120/60; BMI 25.2
[2024-03-07 12:13] LABS: PSA,Total (Free>4and<10) 4.26 ng/mL (0.00-4.00)
[2024-03-08 12:13] LABS: Percent Free Prostate Spec Ag 22 % (calc) (>25); Prostate Specific Ag Total 4.5 ng/mL (< OR = 4.0)
== END 2024-03-07 08:14 | disposition home or self-care (01) ==
LOC: HO.10HDL 08:13
PROVIDERS: Visit Provider Urology
DX: C61 Malignant neoplasm of prostate (principal); Z12.5 Encounter for screening for malignant neoplasm of prostate
CPT/HCPCS: 36415; 84153; 84154

== ENCOUNTER 2024-03-17 09:11 | Outpatient (AMB) | payer MEDICARE, SELFPAY ==
[2022-12-29 15:18] VITALS: BP 120/60; BMI 25.2
--- NOTE | 2024-03-17 09:24 | MHC.OFFVIS ---
Intake Visit Reasons: 4M/PSA(set) Intake Note: Patient is present for PSA Follow up Urology Med: Finasteride Antibiotic Allergy: None Blood Thinner: Aspirin -Patient reports he is only taking Aspirin , no longer taking Plavix PSA- 03/07/2024 TOTAL PSA: 4.5(H) FREE PSA: 1.0 %FREE PSA: 22% Director Cloud Transformation Required: No Accompanied by: Self / Same As Patient Allergies No Known Allergies [No Known Allergies*] Allergy (Verified 03/17/24 09:25) HPI Comments Details: Pj is a very pleasant male. He is a patient of Dr. Gaxiola. He is seen for the following urologic issues - prostate cancer - grade group 4 - phimosis Four month follow-up PVR 20 cc PSA has dropped to 4.2 - 22% Continue on finasteride alternating months- six-month follow-up Discussed management. Intermittent hormone therapy with PSA cutoff between 6 and 10 Prostate cancer - grade group 4 10/01 - PSA 5.4 Histologic type: Adenocarcinoma, acinar type Histologic grade: Judy score: 4+4=8 (right mid lateral) 4+3=7 (left apex lateral, right base lateral, right apex lateral) 3+4=7 (left mid medial, right mid medial, right apex medial) 3+3=6 (left base medial, left mid lateral, right base medial) Tumor quantitation: Number cores positive: 10 Total number of cores: 12 % of tissue involved: 30-35% of all tissue examined Periprostatic fat inv.: Not identified Seminal vesicle inv.: Not identified Perineural inv.: Present LVI: Not identified PT2a TRUS volume 40 Prostate nodule/elevated PSA Minimal urinary issues - Only getting up once or twice at night PSA - 07/01 7.1/5.9 19%, 12/29 3.8, 03/01 3.0 F 30%, 08/31 4.6, 01/31 4.1 20% on finasteride, 08/01 5.3 21% ANIA nodule on left base Discussion regarding prostate cancer he is at 10-15 % risk Good response to finasteride with noticeable improvement in stream PFSH Medical History Allergic rhinitis COPD (chronic obstructive pulmonary disease) History of smoking at least 1 pack per day for at least 30 years Former smoker SOB (shortness of breath) on exertion Elevated cholesterol CAD (coronary artery disease) HTN (hypertension) Acute coronary syndrome HTN (hypertension) Phimosis BPH w urinary obs/LUTS Prostate nodule Elevated PSA Surgical History Hx of colonoscopy Cholelithiasis (09/08/22) Stented coronary artery History of tonsillectomy Family History Father Prostate cancer Diabetes Mother Heart attack Social History Are you a primary pharmacist critical care to a significant other at home: No Do you presently have visiting nurse or other home services: No Alcohol intake: current Alcohol intake frequency: does not drink Patient Tobacco Use Status: Former Tobacco user Tobacco use type: Cigarette Years Smoked: 62 Advance Directives Date on File: 09/08/22 Review of Systems Const Denies chills and Denies fever(s) Card Reports no additional complaints and Denies syncope Resp Denies cough GI Denies abdominal pain and Denies heartburn Reports as per HPI and Denies change in libido Neuro Denies syncope Psych Denies change in libido Endo Denies change in libido Physical Exam Const General: cooperative, healthy appearing, comfortable and no acute distress Orientation/consciousness: patient oriented x3 HEENT Face and sinus: Yes normal facial exam Mouth: moist mucous membranes Neck Neck: Yes normal visual inspection, Yes full ROM and Yes trachea midline Chest Chest palpation & inspection: normal inspection of the chest Resp Effort & Inspection: normal respiratory effort, able to speak in complete sentences and no respiratory distress GI Inspection: Yes normal to inspection Back/Spine/Pelvis Cervical Spine: normal cervical lordosis Thoracic/Lumbar Spine: thoracic and lumbar spine normal to inspection Skin General skin exam: no rashes or lesions noted Neuro General: patient oriented x3, gait normal, tone normal and moves all extremities Extrem General: Yes normal to inspection and Yes capillary refill normal Assessment & Plan Assessment & Plan (1) Prostate cancer: Comment: Grade group 4 Code(s): C61 - Malignant neoplasm of prostate Category: Medical Plan Six-month follow-up Orders: Orders Prostate Specific Antigen 6 Months C61 - Malignant neoplasm of prostate Patient Instructions: Imaging studies, laboratory and physical exam results were discussed and reviewed in detail. No major barriers to patient understanding were identified. An opportunity to ask questions regarding the treatment plan was provided. All questions were answered. The patient expressed understanding and agreement with the above treatment plan. The patient is aware they should contact our office by phone for worsening of their current condition or the appearance of new urologic symptoms. Compliance is encouraged with any medications and followup testing that is ordered. It is a privilege to participate in the urologic care of your patient. If you have any questions or concerns regarding treatment for the above conditions, or other urologic issues, please do not hesitate to contact me. The office telephone contact is [phone]. This note is constructed using voice recognition software. While every effort has been made to ensure accuracy type bar and segment assembler errors may have been included. Yours sincerely, Dr Santana Jarrett MD, [facility] - Urology Providers of Expert, Compassionate Care for the Genitourinary System Coding Level of Care Code Est Pt Level 3 (83536) Diagnoses Prostate cancer C61
== END 2024-03-17 10:11 | disposition home or self-care (01) ==
LOC: HO.HUSH 09:11
PROVIDERS: PCP Internal Medicine; Visit Provider Urology
DX: C61 Malignant neoplasm of prostate (principal)
CPT/HCPCS: 99213

== ENCOUNTER → 2024-03-17 09:11 | Outpatient (BNVA) | payer MEDICARE, SELFPAY ==
[2022-12-29 15:18] VITALS: BP 120/60; BMI 25.2
== END ==
PROVIDERS: PCP Internal Medicine; Visit Provider Urology
DX: C61 Malignant neoplasm of prostate (principal); N47.1 Phimosis
CPT/HCPCS: 99212

== ENCOUNTER 2024-04-11 07:44 | Outpatient (REF) | payer MEDICARE, SELFPAY ==
[2022-12-29 15:18] VITALS: BP 120/60; BMI 25.2
[2024-04-11 07:57] LABS: MANUAL DIFF FLAG NO
[2024-04-11 08:27] LABS: Basophils Absolute Auto 0.1 X10*3/uL (0.0-0.2); Basophils Percent Auto 0.7 % (0-2); Eosinophils Absolute Auto 0.4 X10*3/uL (0.0-0.4); Eosinophils Percent Auto 4.7 % (0-4); Hematocrit 38.7 % (42.0-52.0); Hemoglobin 12.9 g/dl (14.0-18.0); Imm Gran Abs Auto 0.03 X10*3/uL (0.00-0.03); Imm Gran Pct Auto 0.4 % (0.0-0.4); Lymphocytes Absolute Auto 3.1 X10*3/uL (1.2-4.9); Lymphocytes Percent Auto 36.6 % (20-40); Mean Corpuscular HGB Conc 33.3 g/dl (31.0-36.0); Mean Corpuscular Hemoglobin 29.9 pg (27.0-33.0); Mean Corpuscular Volume 89.8 fL (80.0-98.0); Mean Platelet Volume 13.4 fL (9.4-12.4); Monocytes Absolute Auto 0.7 X10*3/uL (0.1-1.2); Neutrophils Absolute Auto 4.1 x10*3/uL (2.0-8.3); Neutrophils Percent Auto 49.6 % (45-73); Platelet Count 155 X10*3/uL (160-400); Red Blood Count 4.31 X10*6/uL (4.60-5.80); Red Cell Distribution Width 13.1 % (11.0-16.0); White Blood Count 8.3 X10*3/uL (4.8-10.8)
[2024-04-11 09:00] LABS: Alanine Aminotransferase 16 U/L (0-40); Albumin Level 3.8 g/dL (3.5-5.0); Alkaline Phosphatase 65 U/L (39-117); Anion Gap 11 (12-20); Aspartate Amino Transferase 26 U/L (5-37); Bilirubin Total 0.7 mg/dL (0.0-1.0); Blood Urea Nitrogen 27 mg/dL (9-16); Calcium 9.3 mg/dL (8.4-10.2); Carbon Dioxide 32 mmol/L (22-29); Chloride 106 mmol/L (96-108); Cholesterol 142 mg/dL (<200); Estimated Glomerular Filt Rate > 60; Glucose Fasting 105 mg/dL (60-99); HDL Cholesterol 39 mg/dL (>40); LDL Cholesterol Calculated 82 mg/dL (<100); Potassium 4.1 mmol/L (3.3-5.1); Sodium 145 mmol/L (135-145); Total Protein 6.3 g/dL (6.5-8.0); Triglycerides 105 mg/dL (<150)
== END 2024-04-11 07:45 | disposition home or self-care (01) ==
LOC: HO.LAB 07:44
PROVIDERS: PCP Internal Medicine; Visit Provider Internal Medicine
DX: J44.9 Chronic obstructive pulmonary disease, unspecified (principal); I25.10 Atherosclerotic heart disease of native coronary artery without angina pectoris; I10 Essential (primary) hypertension; E78.00 Pure hypercholesterolemia, unspecified; D64.9 Anemia, unspecified
CPT/HCPCS: 36415; 80053; 80061; 85025

== ENCOUNTER 2024-05-05 08:30 | Outpatient (AMB) | payer MEDICARE, SELFPAY ==
[2022-12-29 15:18] VITALS: BP 120/60; BMI 25.2
[2024-05-05 08:32] VITALS: BP 126/66; PULSE 69; BMI 24.3
--- NOTE | 2024-05-05 08:32 | A.OFFVIS_ITS ---
Vital Signs 05/05/24 08:32 Height 5 ft 11 in Weight 174 lb 2.643 oz BMI 24.3 BP 126/66 Blood Pressure Location Lt brachial Position Sitting Pulse 69 Intake Visit Reasons: 1yr f/up Intake Note: 1 year follow-up with ekg feeling good Communications Equipment Operator Required: No Allergies No Known Allergies [No Known Allergies*] Allergy (Verified 03/17/24 09:25) Medication List - Last Reconciled 05/05/24 by Blue Ward MD albuterol sulfate 90 mcg/actuation 2 puffs inhalation Q4-6H PRN 30 days aspirin (Adult Low Dose Aspirin) 81 mg PO .DAILY@NOON atorvastatin 80 mg PO DAILY carvedilol 3.125 mg PO BID 90 days finasteride 5 mg PO DAILY 90 days lisinopril 5 mg PO .DAILY@NOON 90 days multivitamin 1 tab PO DAILY HPI Comments Details: Pj comes for follow-up. Recently diagnose of abdominal aortic aneurysm at 4.4 cm. Being managed conservatively. Follow-up with semi annual CT scans. He is doing well overall. Remains very active. Denies any symptoms of exertional chest pain. Blood pressure today appears to be well controlled. Said does not measure blood pressure at home but every 3 months when he sees you his blood pressure is generally well controlled. Takes all his medications. Last LDL of 82 mg/dL. No heart failure symptoms. No lightheadedness, syncope. [facility] Medical History Allergic rhinitis COPD (chronic obstructive pulmonary disease) History of smoking at least 1 pack per day for at least 30 years Former smoker SOB (shortness of breath) on exertion Elevated cholesterol CAD (coronary artery disease) HTN (hypertension) Acute coronary syndrome HTN (hypertension) Phimosis BPH w urinary obs/LUTS Prostate nodule Elevated PSA Surgical History Hx of colonoscopy Cholelithiasis (09/08/22) Stented coronary artery History of tonsillectomy Family History Father Prostate cancer Diabetes Mother Heart attack Social History Are you a primary wound care nurse to a significant other at home: No Do you presently have visiting nurse or other home services: No Alcohol intake: current Alcohol intake frequency: does not drink Patient Tobacco Use Status: Former Tobacco user Tobacco use type: Cigarette Years Smoked: 62 Advance Directives Date on File: 09/08/22 Review of Systems Const Denies chills, Denies fatigue, Denies fever(s), Denies frequent falls, Denies weakness, Denies weight gain and Denies weight loss ENT Denies dizziness Card Denies chest pain, Denies leg edema, Denies lightheadedness, Denies palpitations, Denies dyspnea, Denies dyspnea on exertion, Denies orthopnea and Denies other (loss of consciousness) Resp Denies cough, Denies dyspnea and Denies dyspnea on exertion GI Denies hematochezia and Denies change in stool character Musc Denies abnormal gait, Denies muscle weakness, Denies numbness, Denies radiating pain into limb and Denies tingling Neuro Denies Abnormal speech present, Denies abnormal gait, Denies dizziness, Denies frequent falls, Denies numbness, Denies tingling and Denies weakness Endo Denies fatigue and Denies palpitations Physical Exam Vital Signs: BMI result Body Mass Index 24.3 Const General: cooperative, comfortable, no acute distress, well developed, alert, awake, Physically active and well groomed Nutritional Appearance: average body habitus Orientation/consciousness: patient oriented x3 Limitations: no limitations Neck Neck: Yes trachea midline, Yes supple and Yes no JVD Resp Effort & Inspection: normal respiratory effort Auscultation: clear to auscultation bilaterally Cardio Jugular venous distension: no JVD Palpation: normal PMI Rate: regular rate Rhythm: regular rhythm Heart sounds: S1 normal heart sound present, S2 normal heart sound present, no click, no gallops and no murmurs GI Auscultation: normal bowel sounds Skin General skin exam: no rashes or lesions noted and ecchymosis Neuro General: patient oriented x3 and no focal motor deficits Speech: No Abnormal speech present Extrem General: Yes no clubbing, cyanosis or edema Office Procedures EKG Details: EKG shows normal sinus rhythm with first-degree AV block otherwise normal EKG [id number], Complete Assessment & Plan Assessment & Plan (1) CAD (coronary artery disease): Code(s): I25.10 - Atherosclerotic heart disease of [place] coronary artery without angina pectoris Category: Medical Plan: Stable CAD with prior anterior STEMI status post LAD stenting. Currently doing extremely well. No recurrent symptoms. Highly active lifestyle. Echocardiogram at shown normalized LV ejection fraction. Continue current medications. Continue lifelong aspirin therapy. Continue neurohormonal modulation with lisinopril and carvedilol with aggressive blood pressure control. LDL at his current target is well optimized. We discussed about potentially intensifying therapy and decided together to avoid any further increase his medications. (2) HTN (hypertension): Code(s): I10 - Essential (primary) hypertension Category: Medical Plan: Hypertension is well optimized. Continue current blood pressure control. Encouraged to measure blood pressure intermittently at home. Target goal blood pressure less than 130/84. Low-salt diet was discussed advised to maintain activity level as tolerated. Will follow up in the clinic in 1 year's time, sooner p.r.n.. Thank you for allowing me to partake in his care Coding Level of Care Code Est Pt Level 4 (91354) Complex EM visit Add On G2211 Diagnoses CAD (coronary artery disease) I25.10 HTN (hypertension) I10 CPT Codes EKG - CPT: [id number], Complete ([id number])
== END 2024-05-05 08:53 | disposition home or self-care (01) ==
PROVIDERS: PCP Internal Medicine; Visit Provider Internal Medicine Cardiovascular Disease
DX: I25.10 Atherosclerotic heart disease of native coronary artery without angina pectoris (principal); I10 Essential (primary) hypertension
CPT/HCPCS: 93010; 99214; G2211

== ENCOUNTER → 2024-05-05 08:30 | Outpatient (BNVA) | payer MEDICARE, SELFPAY ==
[2022-12-29 15:18] VITALS: BP 120/60; BMI 25.2
== END ==
PROVIDERS: PCP Internal Medicine; Visit Provider Internal Medicine Cardiovascular Disease
DX: I71.40 Abdominal aortic aneurysm, without rupture, unspecified (principal); I25.10 Atherosclerotic heart disease of native coronary artery without angina pectoris; I10 Essential (primary) hypertension
CPT/HCPCS: 93005; 99212

== ENCOUNTER 2024-09-01 13:10 | Outpatient (REF) | payer MEDICARE, SELFPAY ==
[2022-12-29 15:18] VITALS: BP 120/60; BMI 25.2
[2024-09-01 14:56] LABS: Prostate Specific Antigen 6.51 ng/mL (<0.05-4.0)
== END 2024-09-01 13:11 | disposition home or self-care (01) ==
LOC: HO.LAB 13:10
PROVIDERS: Visit Provider Urology
DX: C61 Malignant neoplasm of prostate (principal); Z12.5 Encounter for screening for malignant neoplasm of prostate
CPT/HCPCS: 36415; 84153

== ENCOUNTER 2024-09-16 09:10 | Outpatient (AMB) | payer MEDICARE, SELFPAY ==
[2022-12-29 15:18] VITALS: BP 120/60; BMI 25.2
--- NOTE | 2024-09-16 09:11 | MHC.OFFVIS ---
Intake Visit Reasons: 6m/PSA Intake Note: Patient is present for 6 month follow up/PSA PSA: 6.51 Urology Medication: Finasteride Antibiotic Allergies:None Blood Thinners: Aspirin PVR:50ml Allergies No Known Allergies [No Known Allergies*] Allergy (Verified 09/16/24 09:13) HPI Comments Details: jP is a very pleasant male. He is a patient of Dr. Gaxiola. He is seen for the following urologic issues - prostate cancer - grade group 4 - phimosis Four month follow-up PVR 20 cc PSA variability persists. Continue on finasteride alternating months- six-month follow-up Discussed management. Intermittent hormone therapy with PSA cutoff between 6 and 10 Urinary Symptoms Review - Recent PSA level was 6.5 during a month off finasteride therapy. - PSA levels generally managed with alternating monthly finasteride treatment. Prostate cancer - grade group 4 10/01 - PSA 5.4 Histologic type: Adenocarcinoma, acinar type Histologic grade: [place] score: 4+4=8 (right mid lateral) 4+3=7 (left apex lateral, right base lateral, right apex lateral) 3+4=7 (left mid medial, right mid medial, right apex medial) 3+3=6 (left base medial, left mid lateral, right base medial) Tumor quantitation: Number cores positive: 10 Total number of cores: 12 % of tissue involved: 30-35% of all tissue examined Periprostatic fat inv.: Not identified Seminal vesicle inv.: Not identified Perineural inv.: Present LVI: Not identified PT2a TRUS volume 40 Prostate nodule/elevated PSA Minimal urinary issues - Only getting up once or twice at night PSA - 07/01 7.1/5.9 19%, 12/29 3.8, 03/01 3.0 F 30%, 08/31 4.6, 01/31 4.1 20% on finasteride, 08/01 5.3 21%, 03/03 4.5 22%, 09/02 6.5 ANIA nodule on left base Discussion regarding prostate cancer he is at 10-15 % risk Good response to finasteride with noticeable improvement in stream [facility] Medical History Allergic rhinitis COPD (chronic obstructive pulmonary disease) History of smoking at least 1 pack per day for at least 30 years Former smoker SOB (shortness of breath) on exertion Elevated cholesterol CAD (coronary artery disease) HTN (hypertension) Acute coronary syndrome HTN (hypertension) Phimosis BPH w urinary obs/LUTS Prostate nodule Elevated PSA Surgical History Hx of colonoscopy (~10/12/14) Cholelithiasis (09/08/22) Stented coronary artery History of tonsillectomy Family History Father Prostate cancer Diabetes Mother Heart attack Social History Are you a primary dog day care attendant to a significant other at home: No Do you presently have visiting nurse or other home services: No Alcohol intake: current Alcohol intake frequency: does not drink Patient Tobacco Use Status: Former Tobacco user Tobacco use type: Cigarette Years Smoked: 62 Advance Directives Date on File: 09/08/22 Review of Systems Const Denies chills and Denies fever(s) Card Reports no additional complaints and Denies syncope Resp Denies cough GI Denies abdominal pain and Denies heartburn Reports as per HPI and Denies change in libido Neuro Denies syncope Psych Denies change in libido Endo Denies change in libido Physical Exam Const General: cooperative, healthy appearing, comfortable and no acute distress Orientation/consciousness: patient oriented x3 HEENT Face and sinus: Yes normal facial exam Mouth: moist mucous membranes Neck Neck: Yes normal visual inspection, Yes full ROM and Yes trachea midline Chest Chest palpation & inspection: normal inspection of the chest Resp Effort & Inspection: normal respiratory effort, able to speak in complete sentences and no respiratory distress GI Inspection: Yes normal to inspection Back/Spine/Pelvis Cervical Spine: normal cervical lordosis Thoracic/Lumbar Spine: thoracic and lumbar spine normal to inspection Skin General skin exam: no rashes or lesions noted Neuro General: patient oriented x3, gait normal, tone normal and moves all extremities Extrem General: Yes normal to inspection and Yes capillary refill normal Assessment & Plan Assessment & Plan (1) Prostate cancer: Comment: Grade group 4 Code(s): C61 - Malignant neoplasm of prostate Category: Medical Plan Plan 1. Prostate Cancer Plan: Continue alternating month finasteride. Monitor PSA, start hormone therapy at PSA 6-10. Reassess PSA in 6 months or sooner if needed. Delayed therapy avoids hormone side effects. Patient consented to plan. Discussion Notes During today's visit, we reviewed the management of prostate cancer with a focus on PSA level monitoring. The patient is on finasteride with PSA this month off therapy being 6.5. We discussed delaying the initiation of hormone therapy until PSA levels reach 6-10 to minimize side effects and maintain quality of life. The patient agreed with this management plan. We also reviewed the abdominal aortic aneurysm monitoring strategy, suspecting an underestimation in previous measurement. A CT scan is ordered for re-evaluation. We discussed the stenting option should intervention become necessary. The patient agreed with the plan for PSA management and aneurysm follow-up, and was informed about future visits alternating between in-person and telephone consultations. Patient Instructions - Continue current finasteride therapy, alternating monthly. - Undergo a blood test to check PSA levels two weeks before the next scheduled visit. - Attend a follow-up appointment in six months to reassess prostate cancer management. - Call if any new symptoms develop or if there is any change in urinary or abdominal symptoms. Orders: Orders Prostate Specific Antigen 6 Months C61 - Malignant neoplasm of prostate Coding Level of Care Code Est Pt Level 3 (10186) Complex EM visit Add On G2211 Diagnoses Prostate cancer C61
== END 2024-09-16 09:45 | disposition home or self-care (01) ==
LOC: HO.HUSH 09:11
PROVIDERS: PCP Internal Medicine; Visit Provider Urology
DX: C61 Malignant neoplasm of prostate (principal); Z13.9 Encounter for screening, unspecified
CPT/HCPCS: 99213; G2211

== ENCOUNTER → 2024-09-16 09:10 | Outpatient (BNVA) | payer MEDICARE, SELFPAY ==
[2022-12-29 15:18] VITALS: BP 120/60; BMI 25.2
== END ==
PROVIDERS: PCP Internal Medicine; Visit Provider Urology
DX: C61 Malignant neoplasm of prostate (principal)
CPT/HCPCS: 51798; 81003; 99212

== ENCOUNTER 2024-09-19 11:30 | Outpatient (AMB) | payer MEDICARE, SELFPAY ==
[2022-12-29 15:18] VITALS: BP 120/60; BMI 25.2
[2024-09-19 10:30] VITALS: BP 126/80; PULSE 59; TEMP 36.3; O2SAT 95; BMI 24.5
--- NOTE | 2024-09-19 10:30 | A.OFFPC_ITS ---
Vital Signs 09/19/24 10:30 Height 5 ft 11 in Weight 176 lb BMI 24.5 BP 126/80 Blood Pressure Location Rt brachial Position Sitting Pulse 59 Pulse Source Pulse Oximeter Temp 97.4 F Temp Source Axillary Pulse Oximetry (%) 95 Oxygen Delivery Method Room Air Intake Visit Reasons: Routine Accompanied by: Spouse Allergies No Known Allergies [No Known Allergies*] Allergy (Verified 09/19/24 11:44) Tobacco use date assessed: 09/19/24 Fall risk assessment: No Falls in past year Last assessed Fall Risk: 09/19/24 Dental Screening Dental Screen Date: 09/19/24 Did you have a dental visit in the last 12 months?: Yes Did you have a dental problem in the last 6 months where you did not have access to dental care?: No PFSH Medical History Allergic rhinitis COPD (chronic obstructive pulmonary disease) History of smoking at least 1 pack per day for at least 30 years Former smoker SOB (shortness of breath) on exertion Elevated cholesterol CAD (coronary artery disease) HTN (hypertension) Acute coronary syndrome HTN (hypertension) Phimosis BPH w urinary obs/LUTS Prostate nodule Elevated PSA Surgical History Hx of colonoscopy (~10/12/14) Cholelithiasis (09/08/22) Stented coronary artery History of tonsillectomy Family History (Updated 09/19/24 @ 11:45 by June Westfall MA) Father Prostate cancer Diabetes Mother Heart attack Social History Housing: House Are you a primary health care sanitary technician to a significant other at home: No Do you presently have visiting nurse or other home services: No Alcohol intake: current Alcohol intake frequency: does not drink Patient Tobacco Use Status: Former Tobacco user Tobacco use type: Cigarette Years Smoked: 62 e-Cigarette/Vaping Use: Former Use Advance Directives Date on File: 09/08/22 service: No Current occupational status: retired Cognitive needs: No Hearing needs: No Vision needs: Yes (rx glasses) Questionnaire PHQ-9 Over the last 2 weeks, how often have you been bothered by any of the following problems? 1. Little interest or pleasure in doing things: not at all 2. Feeling down, depressed, or hopeless: not at all 3. Trouble falling or staying asleep, or sleeping too much: not at all 4. Feeling tired or having little energy: not at all 5. Poor appetite or overeating: not at all 6. Feeling bad about yourself - or that you are a failure or have let yourself or your family down: not at all 7. Trouble concentrating on things, such as reading the newspaper or watching television: not at all 8. Moving or speaking so slowly that other people could have noticed. Or the opposite - being so fidgety or restless that you have been moving around a lot more than usual: not at all 9. Thoughts that you would be better off or of hurting yourself in some way: not at all Total score: 0 Source: Developed by Drs. Robert Luna, Ema Jacob, Colton Hudson and colleagues, with an educational lurdes from [employer]. Thrive Questionnaire Date Thrive assessed: 09/19/24 I am a: Patient Within the past 12 months, did the food you bought not last and you didn't have the money to get more?: Never true Within the past 12 months, did you worry whether your food would run out before you got money to buy more?: Never true Do you have trouble paying for medicines?: No Do you have trouble getting transportation to medical appointments?: No Do you have trouble paying your heating and electricity bill?: No Do you have trouble taking care of your child, family member or friend?: No Do you have trouble with day-to-day activities such as bathing, preparing meals, shopping, managing finances, etc.?: No Are you currently unemployed and looking for a job?: No Are you interested in more education?: No THRIVE Score: 0 AUDIT C Alcohol Use Questionnaire (AUDIT-C) 1. How often do you have a drink containing alcohol?: Monthly or less 2. How many drinks containing alcohol do you have on a typical day when you are drinking?: 1 or 2 3. How often do you have six or more drinks on one occasion?: Less than monthly Total Score: 2 TAE-7 AMB Questionnaire TAE-7 Date TAE - 7 assessed: 05/12/25 Feeling nervous, anxious, or on edge: 0 = Not at all Not being able to stop or control worryin = Not at all Worrying too much about different things: 0 = Not at all Trouble relaxin = Not at all Being so restless that it is hard to sit still: 0 = Not at all Becoming easily annoyed or irritable: 0 = Not at all Feeling afraid as if something awful might happen: 0 = Not at all Total TAE-7 score (0-4 normal; 5-9 mild; 10-14 moderate; 15-21 severe): 0 Source: Developed by Drs. Robert Luna, Ema Jacob, Colton Hudson and colleagues, with an educational lurdes from [employer]. Physical exam (Primary Care) Vital Signs: Last Vital Signs Temp 97.4 F 09/19/24 10:30 Pulse 59 09/19/24 10:30 BP 126/80 09/19/24 10:30 Pulse Ox 95 09/19/24 10:30 Oxygen Delivery Method Room Air 09/19/24 10:30 BMI result Body Mass Index 24.5 Tobacco/Smoking Status: Tobacco use Status Tobacco use date assessed 09/19/24 09/19/24 11:47 Patient Tobacco Use Status Former Tobacco user 09/19/24 10:31 Tobacco use type Cigarette 09/19/24 10:31 e-Cigarette/Vaping Use Former Use 09/19/24 11:47 PHQ-9: PHQ-9 Score PHQ-9: Total score 0 09/19/24 11:47 Thrive Assessment: Date of Thrive Assessment Date Thrive assessed 09/19/24 09/19/24 10:31 Coding Level of Care Code New Pt Level 4 (05381) Complex EM visit Add On G2211 Diagnoses HTN (hypertension) I10 Assessment & Plan Assessment & Plan (1) HTN (hypertension): Code(s): I10 - Essential (primary) hypertension Category: Medical Plan: Condition is stable. Continue current medications. 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 Two years prior, he experienced a myocardial infarction which necessitated the placement of a coronary artery stent. He does not currently express concerns regarding heart health and reports being asymptomatic. A follow-up CT scan is planned for the pulmonary artery aneurysm under the care of Dr. Winters, indicating the necessity for continued monitoring. He reports no stomach issues following a previous gallbladder removal. 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 - Housing and family: Lives at home with an undisclosed gallery host, both self- sufficient in managing daily activities and finances. - Smoking status: Former smoker, currently a nonsmoker. - Driving status: Currently able to drive, including at nighttime. Review of Systems - Cardiovascular: Denies current symptoms. - Respiratory: Denies current symptoms. - Gastrointestinal: Denies abdominal pain; status post cholecystectomy with no issues reported. - Neurological: Reports ability to manage daily activities and drive ind ependently. Physical Exam General: Cooperative and healthy appearing Nutritional Appearance: Well nourished Orientation/consciousness: Patient oriented x3 Limitations: No limitations Head: Normal to inspection General: Appearance normal, both eyes and all related structures Neck: Normal visual inspection Chest: Normal palpation of entire chest wall Respiratory: Aneurysm on lung line ormal respiratory effort Neurology: Patient oriented x3 Results - Imaging: Upcoming CT scan scheduled to evaluate pulmonary artery aneurysm. Plan 1. Coronary Artery Disease Status Post Pci With Stent Placement - Continue current management, monitoring stability. 2. Pulmonary Artery Aneurysm - Follow-up CT scan planned. 3. Status Post Cholecystectomy - Observation without intervention. Discussion Notes During our conversation, I reviewed the patient's stable status with regard to coronary artery disease post-stent placement. The patient is asymptomatic and requires ongoing monitoring as planned. Regarding the pulmonary artery aneurysm, I discussed the importance of the upcoming CT scan with Dr. Winters to assess current status and make informed decisions on subsequent management. The patient also confirmed a stable post-cholecystectomy recovery, with no symptoms present. We agreed to schedule a follow-up appointment in three months to consolidate progress and any updates regarding his conditions. Patient Instructions - Attend the scheduled CT scan with Dr. Winters. - Monitor for any new symptoms or changes and report them promptly. - Maintain current lifestyle without changes unless advised. - Plan to return for a follow-up appointment in three months. - If any concerning symptoms arise, contact the office immediately.
== END 2024-09-19 12:01 | disposition home or self-care (01) ==
LOC: HO.HMCHD 11:31
PROVIDERS: PCP Internal Medicine; Visit Provider Internal Medicine
DX: I10 Essential (primary) hypertension (principal)

== ENCOUNTER → 2024-09-19 11:30 | Outpatient (BNVA) | payer MEDICARE, SELFPAY ==
[2022-12-29 15:18] VITALS: BP 120/60; BMI 25.2
== END ==
PROVIDERS: PCP Internal Medicine; Visit Provider Internal Medicine
DX: I10 Essential (primary) hypertension (principal)
CPT/HCPCS: 99202

== ENCOUNTER 2024-10-14 08:35 | Outpatient (REF) | payer MEDICARE, SELFPAY ==
[2022-12-29 15:18] VITALS: BP 120/60; BMI 25.2
--- NOTE | ~2024-10-14 | US_ITS ---
CLINICAL HISTORY: I71.40 - Abdominal aortic aneurysm, without rupture, unspecified --- Additional Not es or Special Instructions: Insert aortic ultrasound US ABDOMEN (AAA) Comparison: None Findings: Aorta proximal 3.3 x 3.2 cm. Aorta mid 2.4 x 2.7 cm. Aorta distal 5.6 x 4.6 cm. Right common iliac artery 1.6 x 1.3 cm. Left common iliac artery 1.4 x 1.5 cm. IMPRESSION: 1. 5.6 cm distal abdominal aortic aneurysm. Recommend prompt surgical consultation. This document has been electronically signed by: Jayla Le DO on 10/14/2024 15:31:45
== END 2024-10-14 08:36 | disposition home or self-care (01) ==
LOC: HO.US 08:35
PROVIDERS: PCP Internal Medicine; Visit Provider Surgery Vascular Surgery
DX: I71.40 Abdominal aortic aneurysm, without rupture, unspecified (principal)
CPT/HCPCS: 76706

== ENCOUNTER → 2024-10-14 08:40 | Outpatient (BNV) | payer MEDICARE, SELFPAY ==
[2022-12-29 15:18] VITALS: BP 120/60; BMI 25.2
== END ==
PROVIDERS: PCP Internal Medicine; Visit Provider Radiology Diagnostic Radiology
DX: I71.40 Abdominal aortic aneurysm, without rupture, unspecified (principal)
CPT/HCPCS: 76706

== ENCOUNTER 2024-10-19 13:56 | Outpatient (REF) | payer MEDICARE, SELFPAY ==
[2022-12-29 15:18] VITALS: BP 120/60; BMI 25.2
[2024-10-19 15:01] LABS: Blood Urea Nitrogen 17 mg/dL (9-16); Estimated Glomerular Filt Rate > 60
== END 2024-10-19 13:57 | disposition home or self-care (01) ==
LOC: HO.LAB 13:56
PROVIDERS: PCP Internal Medicine; Visit Provider Surgery Vascular Surgery
DX: I71.40 Abdominal aortic aneurysm, without rupture, unspecified (principal)
CPT/HCPCS: 36415; 82565; 84520

== ENCOUNTER 2024-10-20 08:50 | Outpatient (REF) | payer MEDICARE, SELFPAY ==
[2022-12-29 15:18] VITALS: BP 120/60; BMI 25.2
--- NOTE | ~2024-10-20 | CT_ITS ---
EXAMINATION: CT ANGIOGRAM ABDOMEN AND PELVIS CLINICAL INFORMATION: Aneurysm without rupture, abdominal aorta. COMPARISON: CT dated August 02, 2022. Correlated to ultrasound dated October 14, 2024. TECHNIQUE: Multiple axial images were obtained through the abdomen and pelvis following the administration of 80 mL of Omnipaque 350 intravenous contrast. Images were reviewed on a dedicated 3-D workstation. This CT examination was performed using dose optimization techniques as appropriate, variously including the following: *Automated exposure control *Adjustment of mA and/or kV according to patient size (this includes techniques or standardized protocols for targeted exams where dose is matched to indication/reason for exam; i.e. extremities or head) *Use of iterative reconstruction technique DLP: 274 mGy centimeter. FINDINGS: Descending thoracic aorta: Mixed plaques. Normal patency. 28 x 27 mm maximal diameter. No intimal flap. No IV contrast extravasation. Abdominal aorta: Suprarenal segment: Mixed plaques. Normal patency. 25 x 22 mm maximum diameter. No IV contrast extravasation. No intimal flap Infrarenal segment: Mixed plaques. Normal patency. No intimal flap. No IV contrast extravasation. 21 x 19 mm maximum diameter. Distal segment: Lobulated morphology. Normal patency. No intimal flap. No IV contrast extravasation. 51 x 41 mm in maximum diameter. The celiac trunk, superior mesenteric artery, inferior mesenteric artery and main renal arteries are patent without high degree stenosis or vascular irregularity. Right iliac artery: Normal patency. No intimal flap. No IV contrast dilatation. Calcified plaques. Common iliac artery diameter: 15 mm. Left iliac artery: Normal patency. There is a focal 4 mm IV contrast enhanced abnormality at the 11:00 position. There is a 18 mm maximum diameter. Calcified plaque. No intraluminal filling defects. Ancillary findings: Probable emphysematous type changes. Linear and nodular attenuation, lingula. Status post cholecystectomy. Subcentimeter low density in the liver is not fully evaluated on this exam due to the arterial phase acquisition. Subtle nodular surface of the liver. Numerous diverticula, sigmoid colon. Fat-containing right inguinal scrotal hernia. Multifocal exophytic cystic lesions in the kidneys, more numerous and larger on the left kidney. Multilevel thoracolumbar spondylosis. 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 No gross listhesis. Osteopenia versus osteoporosis. Soft tissue fullness in the adrenal glands, no fully evaluated. CT/CT angio abdomen pelvis IMPRESSION: 51 x 41 mm saccular nonruptured aneurysm, distal abdominal aorta. Larger since prior examination. 5 mm pseudoaneurysm, left common iliac artery. Ectasia both common iliac arteries. Stable since prior exam. 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 Diverticular disease, sigmoid colon. Small fat-containing right inguinal scrotal hernia. Status post cholecystectomy. Fleischner guidelines were followed. Electronically signed by: Jere Dalal MD 10/20/2024 09:54 AM EDT
[2024-10-20] MEDS: iohexoL 350 MG/ML 100 ML INFUS..BTL IV (09:32)
== END 2024-10-20 08:51 | disposition home or self-care (01) ==
LOC: HO.CT 08:50
PROVIDERS: PCP Internal Medicine; Visit Provider Surgery Vascular Surgery
DX: I71.40 Abdominal aortic aneurysm, without rupture, unspecified (principal)
CPT/HCPCS: 74174; Q9967

== ENCOUNTER → 2024-10-20 08:52 | Outpatient (BNV) | payer MEDICARE, SELFPAY ==
[2022-12-29 15:18] VITALS: BP 120/60; BMI 25.2
== END ==
PROVIDERS: PCP Internal Medicine; Visit Provider Radiology Diagnostic Radiology
DX: I71.40 Abdominal aortic aneurysm, without rupture, unspecified (principal)
CPT/HCPCS: 74174

== ENCOUNTER 2024-10-25 09:00 | Outpatient (AMB) | payer MEDICARE, SELFPAY ==
[2022-12-29 15:18] VITALS: BP 120/60; BMI 25.2
[2024-10-25 09:09] VITALS: BMI 24.5
--- NOTE | 2024-10-25 09:09 | MHC.OFFVIS ---
Vital Signs 10/25/24 09:09 Height 5 ft 11 in Weight 176 lb BMI 24.5 Intake Visit Reasons: Follow up AAA US 10/14/24 Intake Note: 6 mo follow up AAA s/p US 10/14/24 & CTA Abd/pelvis 10/20/24. No complaints Rag Baler Required: No Accompanied by: Self / Same As Patient Allergies No Known Allergies [No Known Allergies*] Allergy (Verified 10/25/24 09:12) HPI HPI Follow up AAA US 10/14/24: Details: The patient is an 89-year-old male presenting with an abdominal aortic aneurysm. Initially identified through a PET scan, the aneurysm measured 4.1 cm and has progressed to 5.1 cm as of the latest CT assessment after ultrasound. There's a concern for the aneurysm's more saccular nature. The enlargement of the aneurysm poses a potential risk of rupture, triggering a re-evaluation for potential surgical intervention. The patient remains asymptomatic, with no associated abdominal pain, living a stable lifestyle. He has been made aware of the possible implications of the aneurysm's growth. He now presents for vascular re-evaluation. [facility] Medical History Allergic rhinitis COPD (chronic obstructive pulmonary disease) History of smoking at least 1 pack per day for at least 30 years Former smoker SOB (shortness of breath) on exertion Elevated cholesterol CAD (coronary artery disease) HTN (hypertension) Acute coronary syndrome HTN (hypertension) Phimosis BPH w urinary obs/LUTS Prostate nodule Elevated PSA Surgical History Hx of colonoscopy (~10/12/14) Cholelithiasis (09/08/22) Stented coronary artery History of tonsillectomy Family History Father Prostate cancer Diabetes Mother Heart attack Social History Housing: House Are you a primary critical care registered nurse to a significant other at home: No Do you presently have visiting nurse or other home services: No Alcohol intake: current Alcohol intake frequency: does not drink Patient Tobacco Use Status: Former Tobacco user Tobacco use type: Cigarette Years Smoked: 62 e-Cigarette/Vaping Use: Former Use Advance Directives Date on File: 09/08/22 service: No Current occupational status: retired Cognitive needs: No Hearing needs: No Vision needs: Yes (rx glasses) Review of Systems Const All systems reviewed & are unremarkable except as noted in HPI and below Reports no additional complaints ENT Reports Normal hearing present Card Denies chest pain, Denies chest pain at rest, Denies chest pain with activity and Denies pedal edema Resp Denies cough GI Denies abdominal pain Musc Denies abnormal gait, Denies muscle cramps and Denies radiating pain into limb Skin/Breast Denies skin ulcer and Denies wounds Neuro Reports Normal hearing present and Denies abnormal gait Psych Reports no additional complaints Physical Exam Vital Signs: BMI result Body Mass Index 24.5 Const General: cooperative, healthy appearing and comfortable Orientation/consciousness: oriented to person, oriented to place and oriented to time HEENT Head: Yes normal to inspection Neck Neck: Yes normal visual inspection Carotids: no bruits Chest Chest palpation & inspection: normal inspection of the chest Resp Effort & Inspection: normal respiratory effort and able to speak in complete sentences Auscultation: clear to auscultation bilaterally, no crackles, no rales, no rhonchi and no wheezes Cardio Rate: regular rate Rhythm: regular rhythm Heart sounds: S1 normal heart sound present and S2 normal heart sound present Bruits: no carotid bruits Peripheral pulses: Peripheral pulses 2+ throughout GI Inspection: Yes normal to inspection Skin Wounds: no wounds Hair: normal Neuro General: oriented to person, oriented to place and oriented to time Cranial nerves: Yes CN's II-XII intact bilaterally and Yes Normal hearing present Cognition (Neuro): normal cognition Motor exam (neuro): 5/5 motor strength present throughout Extrem Other: venous exam: No significant superficial varicosities or spider telangiectasias, minimal edema General: No clubbing, No cyanosis and No edema Psych Appearance: grossly normal Mental Status: mental status grossly normal Speech and movement: Normal speech and movement present Results Reviewed Results Reviewed: CT angiogram dated 10/20/2024 demonstrates aneurysm sac of 51 x 41 mm saccular in nature in the distal abdominal aorta. 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 Assessment & Plan Assessment & Plan (1) Abdominal aneurysm: Code(s): I71.40 - Abdominal aortic aneurysm, without rupture, unspecified Category: Medical Plan: In short patient has radiologic evidence of a AAA on CT scan of 5.1 cm.. We have discussed the pathophysiology of aortic aneurysms and the risk of ruptures. We have discussed rupture risk based on size. In addition we have discussed conservative measures and risk factor modification for prevention of increase in size of the aneurysm. The patient will require endovascular aortic aneurysm repair with possible open repair. Risks benefits complications including but not limited to bleeding infection rupture and were discussed in detail with the patient. He would like to move forward. He will require cardiac risk stratification prior to surgery. Thank you for allowing us to assist in his care. Coding Level of Care Code Est Pt Level 4 (66965) Complex EM visit Add On G2211 Diagnoses Abdominal aneurysm I71.40
== END 2024-10-25 09:44 | disposition home or self-care (01) ==
LOC: HO.HVS 09:00
PROVIDERS: PCP Internal Medicine; Visit Provider Surgery Vascular Surgery
DX: I71.40 Abdominal aortic aneurysm, without rupture, unspecified (principal)
CPT/HCPCS: 99214; G2211

== ENCOUNTER → 2024-10-25 09:00 | Outpatient (BNVA) | payer MEDICARE, SELFPAY ==
[2022-12-29 15:18] VITALS: BP 120/60; BMI 25.2
== END ==
PROVIDERS: PCP Internal Medicine; Visit Provider Surgery Vascular Surgery
DX: I71.40 Abdominal aortic aneurysm, without rupture, unspecified (principal)
CPT/HCPCS: 99212

== ENCOUNTER → 2024-11-04 14:04 | Outpatient (BNV) | payer MEDICARE, SELFPAY ==
[2022-12-29 15:18] VITALS: BP 120/60; BMI 25.2
== END ==
PROVIDERS: Admitting Provider Surgery Vascular Surgery; PCP Internal Medicine; Visit Provider Internal Medicine
DX: I49.1 Atrial premature depolarization (principal); I44.0 Atrioventricular block, first degree
CPT/HCPCS: 93010

== ENCOUNTER 2024-11-08 13:47 | Outpatient (AMB) | payer MEDICARE, SELFPAY ==
[2022-12-29 15:18] VITALS: BP 120/60; BMI 25.2
[2024-11-07 09:52] VITALS: BP 120/60; BP 128/62; BP 143/64; BMI 25.2
[2024-11-08 14:06] VITALS: BP 132/70; PULSE 59; BMI 25.1
--- NOTE | 2024-11-08 14:06 | MHC.OFFVIS ---
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 Required: No Admin Dir: Admin Dir Present Allergies No Known Allergies (No Known Allergies*) Allergy (Verified 11/08/24 14:08) Medication List - Last Reconciled 11/08/24 by Janett Duarte NP-C albuterol sulfate 90 mcg/actuation 2 puffs inhalation Q4-6H PRN 30 days aspirin (Adult Low Dose Aspirin) 81 mg PO QPM atorvastatin 80 mg PO BEDTIME carvedilol 3.125 mg PO BID 90 days finasteride 5 mg PO QPM lisinopril 5 mg PO QAM multivitamin 1 tab PO DAILY HPI HPI Preop Denisse/AAA surgery 11/14: Details: Pj is an 89-year-old male with past medical history of hypertension, hyperlipidemia, coronary artery disease with NSTEMI, mid LAD stent 06/18/2022, abdominal aortic aneurysm who presents for preop cardiovascular clearance for endovascular repair of abdominal aortic aneurysm 5.1 cm. Today he reports that he has been doing well since his last visit in April. He admits to some mild shortness of breath if he over exerts. He has no chest discomfort at rest or with activity. No shortness of breath at rest, PND, orthopnea or edema. No heart palpitations, lightheadedness, presyncope, syncope. He denies any abdominal discomfort. He reports good activity tolerance and is able to mow his lawn with a push mower while taking rests as needed. He can climb a flight of stairs with mild shortness of breath. He is compliant with his medications. His is present. His surgery is currently scheduled for 11/14/2024. [facility] Medical History Vertigo STEMI (ST elevation myocardial infarction) Allergic rhinitis COPD (chronic obstructive pulmonary disease) Former smoker Elevated cholesterol CAD (coronary artery disease) HTN (hypertension) Acute coronary syndrome BPH w urinary obs/LUTS Prostate nodule Elevated PSA Surgical History Hx of oral surgery Hx of cholecystectomy Hx of colonoscopy (~10/12/14) Stented coronary artery History of tonsillectomy Family History Father Prostate cancer Diabetes Mother Heart attack Social History Housing: House Are you a primary day care attendant to a significant other at home: No Do you presently have visiting nurse or other home services: No Alcohol intake: current Alcohol intake frequency: does not drink Patient Tobacco Use Status: Former Tobacco user Tobacco use type: Cigarette Years Smoked: 62 e-Cigarette/Vaping Use: Former Use Advance Directives Date on File: 09/08/22 service: No Current occupational status: retired Cognitive needs: No Hearing needs: No Vision needs: Yes (rx glasses) Review of Systems Const All systems reviewed & are unremarkable except as noted in HPI and below ENT Denies dizziness Card Details: mild sob if he overexerts Denies chest pain, Denies chest pain at rest, Denies chest pain with activity, Denies rapid heart rate, Denies pedal edema, Denies edema, Denies leg edema, Denies lightheadedness, Denies palpitations, Reports dyspnea, Denies dyspnea on exertion and Denies orthopnea Resp Denies cough, Reports dyspnea and Denies dyspnea on exertion GI Details: No abdominal discomfort Denies hematochezia and Denies change in stool character Musc Denies abnormal gait, Reports limited range of motion, Denies muscle cramps, Denies muscle weakness, Denies numbness, Denies radiating pain into limb, Denies stiffness and Denies tingling Neuro Denies abnormal gait, Denies dizziness, Denies numbness and Denies tingling Endo Denies palpitations Physical Exam Vital Signs: Last Vital Signs Pulse 59 11/08/24 14:06 BP 132/70 11/08/24 14:06 BMI result Body Mass Index 25.1 Const General: cooperative, healthy appearing, comfortable and no acute distress Orientation/consciousness: patient oriented x3 Neck Neck: Yes normal visual inspection and Yes no JVD Resp Effort & Inspection: normal respiratory effort Auscultation: clear to auscultation bilaterally, no rales, no rhonchi and no wheezes Cardio Rate: regular rate Rhythm: regular rhythm Heart sounds: S1 normal heart sound present, S2 normal heart sound present, no gallops, no murmurs and no rubs Neuro General: patient oriented x3 Extrem General: Yes normal to inspection Psych Appearance: grossly normal Mental Status: mental status grossly normal Speech and movement: Normal speech and movement present Office Procedures EKG Details: Today, read by me, sinus bradycardia, rate 59, QTC 425 ms [id number], Complete Assessment & Plan Assessment & Plan (1) Preop cardiovascular exam: Code(s): Z01.810 - Encounter for preprocedural cardiovascular examination Category: Medical Plan: Preop for vascular surgery, endovascular AAA repair, 11/14/2024. He will need to undergo a pharmacological nuclear stress test to evaluate for any ischemia and will order echocardiogram. Cardiovascular clearance will be completed once these test results are available. Unable to complete prior to the 11/14, procedure date. Dr. Ward notified Dr. Salcedo of the need to postpone surgery. Patient aware. (2) Abdominal aneurysm: Code(s): I71.40 - Abdominal aortic aneurysm, without rupture, unspecified Category: Medical Plan: Abdominal aortic aneurysm with recent CT scan showing max diameter 5.1 cm x 4.1 cm. No reports of abdominal discomfort. Being followed by Dr. Salcedo and surgery being planned. (3) CAD (coronary artery disease): Comment: follows w/[facility] Code(s): I25.10 - Atherosclerotic heart disease of [place] coronary artery without angina pectoris Category: Medical Plan: History of CAD with NSTEMI 06/2022. He underwent cardiac catheterization showing mid LAD 60% stenosis, IFR 0.88. BAUTISTA placed. Echocardiogram 07/21/2022 showed EF 56%, no regional wall motion abnormalities. He has mild shortness of breath with exertional activities which can be related to his COPD. Continue aspirin indefinitely. Continue high-dose atorvastatin with LDL goal less than 70. Continue carvedilol and lisinopril. Signs and symptoms of angina reviewed. For preop clearance will update ischemic evaluation as above. Cardiology follow-up 6 months, sooner if needed. (4) HTN (hypertension): Code(s): I10 - Essential (primary) hypertension Category: Medical Plan: Blood pressure goal less than 130/80. Controlled at this time. Continue carvedilol and lisinopril. Plan Time spent on chart review, documentation, interview and assessment Orders: Orders CA echo transthoracic complete Today I25.10 - Atherosclerotic heart disease of [place] coronary artery without angina pectoris, Z01.810 - Encounter for preprocedural cardiovascular examination NM cardiolite stress test Today I25.10 - Atherosclerotic heart disease of [place] coronary artery without angina pectoris CA lexiscan stress w renny Today I25.10 - Atherosclerotic heart disease of [place] coronary artery without angina pectoris, Z01.810 - Encounter for preprocedural cardiovascular examination Coding Level of Care Code Est Pt Level 4 (02692) Complex EM visit Add On G2211 Diagnoses Preop cardiovascular exam Z01.810 Abdominal aneurysm I71.40 CAD (coronary artery disease) I25.10 HTN (hypertension) I10 CPT Codes EKG - CPT: [id number], Complete ([id number]) Time Spent (min) 32
--- OUTSIDE RECORDS SUMMARY | 2024-11-08 14:57 | XMS_ITS | Patient Health Record ---
Author Organization [facility] Address [address] [place] [address] Care Team Providers Care Telegraph And Teletype Operator Name Role Phone Ross Gaxiola MD Primary Care Provider Suma dumont Robert Anguiano Unavailable [phone] Reason For Referral No Information Medications Medication [...] W/U Status Risk Notes Problem Pre-surgery evaluation (233694904) Other specified pre-operative examination (V72.83) Active confirmed Problem Colon cancer screening (671808040) Colon cancer screening (V76.51) Active confirmed Problem History of polyp of colon (514978332) H/O adenomatous polyp of colon (V12.72) Active confirmed Problem Hypertension (15218557) Hypertension (401.9) Active confirmed Plan Of Treatment Future Test Test Name Order Date COLONOSCOPY 08/29/2014 Insurance Providers Payer Name Payer Address Payer Phone Subscriber Number Group Number Insured Name Patient Relationship to Insured Coverage Start Date Coverage End Date MEDICARE OF [place] [address] [place] [address] [phone] [id number] JAMILA VALERIO Self - patient is the insured MEDEX ATTN CLAIMS [address] [place] [address] [id number] JAMILA VALERIO Self - patient is the insured Medical (General) History Medical History History ICD Code Colonoscopy 04-09-2009--hyperplastic abhay yps and 2 lipomas Tubular adenomas removed in 2005 Hyperlipidemia Denies IA,DM,CVA,Lung disease,renal dise ase Surgical History Surgery Date(Month/Year) tonsillectomy
== END 2024-11-08 14:54 | disposition home or self-care (01) ==
LOC: HO.HCS 13:48
PROVIDERS: PCP Internal Medicine; Visit Provider Nurse Practitioner Family
DX: Z01.810 Encounter for preprocedural cardiovascular examination (principal); I71.40 Abdominal aortic aneurysm, without rupture, unspecified; I25.10 Atherosclerotic heart disease of native coronary artery without angina pectoris; I10 Essential (primary) hypertension
CPT/HCPCS: 93010; 99214; G2211

== ENCOUNTER → 2024-11-08 13:47 | Outpatient (BNVA) | payer MEDICARE, SELFPAY ==
[2024-11-07 09:52] VITALS: BP 120/60; BP 128/62; BP 143/64; BMI 25.2
== END ==
PROVIDERS: PCP Internal Medicine; Visit Provider Nurse Practitioner Family
DX: Z01.810 Encounter for preprocedural cardiovascular examination (principal); I71.40 Abdominal aortic aneurysm, without rupture, unspecified; I25.10 Atherosclerotic heart disease of native coronary artery without angina pectoris; I10 Essential (primary) hypertension
CPT/HCPCS: 93005; 99212

== ENCOUNTER → 2024-11-17 10:56 | Outpatient (REF) | payer MEDICARE, SELFPAY ==
[2024-11-07 09:52] VITALS: BP 120/60; BP 128/62; BP 143/64; BMI 25.2
--- NOTE | 2024-11-17 11:01 | CA_ITS ---
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 Study Quality: Adequate ECG Rhythm: Bradycardia Conclusions: - 1. Normal LV ejection fraction of 60 65% with pseudonormal filling pattern with elevated left ventricular end-diastolic pressure 2. Calcific aortic and mitral valve changes with normal cardiac valvular Dopplers 3. No gross pericardial effusion Findings Left Ventricle Normal left ventricular size, thickness, and systolic function. The visually estimated ejection fraction is between 60-65%. Spectral Doppler is indicative of a pseudonormal filling pattern. Elevated left ventricular end diastolic pressure. Wall Motion Rest Echo Findings The basal inferior and basal inferoseptal segments are hypokinetic. All other scored wall segments showed normal motion. Right Ventricle Normal right ventricular cavity size and systolic function. Atria The left atrium is normal in size. There is no evidence of interatrial shunt. The right atrium is mildly dilated. Aortic Valve Normal aortic valve structure and function. There is mild calcification of the aortic valve. There is no aortic valve stenosis. There is no aortic valve regurgitation. Mitral Valve Normal mitral valve structure and function. There is mild mitral annular calcification. There is trace mitral valve regurgitation. There is no mitral valve stenosis. Pulmonic Valve The pulmonic valve is likely normal. There is trace pulmonic valve regurgitation. Tricuspid Valve Normal tricuspid valve structure. Tricuspid regurgitation envelope is inadequate for calculation of right ventricular systolic pressure. Normal right atrial pressure. Great Vessels The pulmonary artery was not well visualized. There is no dilatation of the ascending aorta measuring 3.40 cm. Small plaque is seen in the sino tubular ridge. Venous The inferior vena cava is normal in size and collapses greater than 50% with inspiration. Pericardium/Pleural There is no evidence of pericardial effusion. Prior Study Comparison No significant change compared to prior study dated: 07/21/2022. Measurements 2D Linear Measurements IVSd: 0.95 0.6-0.9/0.6-1.0 cm LVIDd: 4.09 3.9-5.3/4.2-5.9 cm LVIDd Index: 2.09 2.4-3.2/2.2-3.1 cm/m2 LVIDs: 2.62 2.0-3.6 cm LVPWd: 0.98 0.7-1.1 cm LA Diam: 3.80 2.7-3.8/3.0-4.0 cm LAIDs Index: 1.94 1.5-2.3 cm/m2 LV Mass: 223.78 67-162/88-224 g LV Mass Index: 114.17 43-95/49-115 g/m2 LVOT Diam: 2.10 3.0+(-)1.3 cm 2D Systolic Function EF 4C: 65.40 >55% EF 2C: 57.70 >55% EF BiP: 63.20 >55% Mitral Valve MV Pk E: 0.86 MV PK A: 0.72 MV Decel Time: 248.00 E/A: 1.20 E'Lateral: 6.00 E'Medial: 5.66 E/E' Med: 15.10 E/E' Lat: 14.30 PHT: 73.00 MVA PHT: 3.01 Decel Leslie: 3.46 Aortic Valve AoV Pk Ezequiel: 1.17 AoV Mn Ezequiel: 0.78 AoV VTI: 0.28 AoV Pk Grad: 5.00 Aov Mn Grad: 3.00 JESSICA Cont.VTI: 2.57 LVOT LVOT Pk Ezequiel: 0.91 LVOT Mn Ezequiel: 0.58 LVOT VTI: 0.21 LVOT Pk Grad: 3.00 LVOT Mn Grad: 2.00 LVOT Diam: 2.10 LVOT Area: 3.46 Diastolic Function MV Pk E: 0.86 MV Pk A: 0.72 E/A: 1.20 E'Medial: 5.66 E/E' Med: 15.10 E' Laterial: 6.00 E/E' Lat: 14.30 Right Ventricle TAPSE (mm): 29.50 TVS' Ezequiel: 13.60 Great Vessels Aorta Sinus of Valsalva: 3.50 2.0-3.5 cm Ao Asc: 3.40 2.1-3.4 cm Ao Arch: 2.30 Pulmonary Valve PV Pk Ezequiel: 1.06 Peak PV Grad: 4.00 Updated in Other Vendor System with Status of Final Blue Ward MD electronically signed on 11/17/2024 4:01:57 PM with status of Final
--- OUTSIDE RECORDS SUMMARY | 2024-11-17 11:40 | XMS_ITS | Patient Health Record ---
Author Organization [facility] Address [address] [place] [address] Care Team Providers Care Mining Speculator Name Role Phone Ross Gaxiola MD Primary Care Provider Suma dumont Robert Anguiano Unavailable [phone] Reason For Referral No Information Medications Medication [...] W/U Status Risk Notes Problem Pre-surgery evaluation (105907711) Other specified pre-operative examination (V72.83) Active confirmed Problem Colon cancer screening (268218109) Colon cancer screening (V76.51) Active confirmed Problem History of polyp of colon (209906639) H/O adenomatous polyp of colon (V12.72) Active confirmed Problem Hypertension (34624464) Hypertension (401.9) Active confirmed Plan Of Treatment Future Test Test Name Order Date COLONOSCOPY 08/29/2014 Insurance Providers Payer Name Payer Address Payer Phone Subscriber Number Group Number Insured Name Patient Relationship to Insured Coverage Start Date Coverage End Date MEDICARE OF [place] [address] [place] [address] [id number] JAMILA VALERIO Self - patient is the insured MED[employer] ATTN CLAIMS [address] [place] [address] [phone] [id number] JAMILA VALERIO Self - patient is the insured Medical (General) History Medical History History ICD Code Colonoscopy 04-09-2009--hyperplastic abhay yps and 2 lipomas Tubular adenomas removed in 2005 Hyperlipidemia Denies PA,DM,CVA,Lung disease,renal dise ase Surgical History Surgery Date(Month/Year) tonsillectomy
== END ==
LOC: HO.CARD 10:56
PROVIDERS: PCP Internal Medicine; Visit Provider Nurse Practitioner Family
DX: Z01.810 Encounter for preprocedural cardiovascular examination (principal); I25.10 Atherosclerotic heart disease of native coronary artery without angina pectoris
CPT/HCPCS: 93306

== ENCOUNTER → 2024-11-17 11:01 | Outpatient (BNV) | payer MEDICARE, SELFPAY ==
[2024-11-07 09:52] VITALS: BP 120/60; BP 128/62; BP 143/64; BMI 25.2
== END ==
PROVIDERS: PCP Internal Medicine; Visit Provider Internal Medicine Cardiovascular Disease
DX: I25.10 Atherosclerotic heart disease of native coronary artery without angina pectoris (principal); I35.8 Other nonrheumatic aortic valve disorders; I34.81 Nonrheumatic mitral (valve) annulus calcification
CPT/HCPCS: 93306

== ENCOUNTER → 2024-11-21 08:43 | Outpatient (REF) | payer MEDICARE, SELFPAY ==
[2024-11-07 09:52] VITALS: BP 120/60; BP 128/62; BP 143/64; BMI 25.2
--- NOTE | ~2024-11-21 | NM_ITS ---
Lexiscan Myocardial perfusion study Indication: Preoperative cardiac evaluation Technique: The patient was brought in for a Lexiscan perfusion study on 11/21/2024 and was injected 0.4 mg of Lexiscan intravenously. Within a minute of this injection 30 mCi of sestamibi was given intravenously. Images were obtained using the SPECT gamma camera interlaced with the gating device. Images were obtained in supine position. Resting perfusion study was performed on 11/22/2024. Patient was administered 30 mCi of sestamibi intravenously at rest. Images were then obtained in supine position. Total DLP 72 mGy-cm. Images were processed with the software and compared side to side in short axis, horizontal long axis and vertical long axis views. Findings: Raw aquisition reviewed. The stress perfusion study showed no significant perfusion defects. Both uncorrected as well as CT attenuation corrected images were reviewed. The gated study shows normal LV systolic function with calculated LVEF of 58%. LV cavity is normal in size. The gated study shows normal wall thickening and contraction of segments. Resting study shows no significant perfusion defects. Both uncorrected as well as CT attenuation corrected images were reviewed. Gating at rest reveals normal wall motion with ejection fraction at 46%, visually appears higher. The findings are consistent with no clear reversible or fixed perfusion defects. NM/NM cardiolite stress test Impression: 1. Myocardial perfusion imaging study shows normal myocardial perfusion. 2. Gated LVEF is 58% during stress; 46% during rest but visually appears higher. Correlate with echocardiogram. 3. Transient ischemic dilatation not present. EKG component of the test reported separately. Electronically signed by: Srinivasan Godoy MD 11/23/2024 10:55 AM EDT
--- OUTSIDE RECORDS SUMMARY | 2024-11-21 08:50 | XMS_ITS | Patient Health Record ---
Author Organization [facility] Address [address] [place] [address] Care Team Providers Care Calender Inspector Name Role Phone Ross Gaxiola MD Primary Care Provider Suma dumont Robert Anguiano Unavailable [phone] Reason For Referral No Information Medications Medication [...] W/U Status Risk Notes Problem Pre-surgery evaluation (161578317) Other specified pre-operative examination (V72.83) Active confirmed Problem Colon cancer screening (837942568) Colon cancer screening (V76.51) Active confirmed Problem History of polyp of colon (026179843) H/O adenomatous polyp of colon (V12.72) Active confirmed Problem Hypertension (91057114) Hypertension (401.9) Active confirmed Plan Of Treatment Future Test Test Name Order Date COLONOSCOPY 08/29/2014 Insurance Providers Payer Name Payer Address Payer Phone Subscriber Number Group Number Insured Name Patient Relationship to Insured Coverage Start Date Coverage End Date [place]ARE OF [place] [address] [place] [address] [id number] JAMILA VALERIO Self - patient is the insured MED[employer] ATTN CLAIMS [address] [place] [address] [id number] JAMILA VALERIO Self - patient is the insured Medical (General) History Medical History History ICD Code Colonoscopy 04-09-2009--hyperplastic abhay yps and 2 lipomas Tubular adenomas removed in 2005 Hyperlipidemia Denies MD,DM,CVA,Lung disease,renal dise ase Surgical History Surgery Date(Month/Year) tonsillectomy
--- NOTE | 2024-11-21 08:51 | CA_ITS ---
Acquisition Time: 2024-11-21 09:23:43 Total Exercise Time: 00:02:00 Test Indications: PREOP Medications: CARVEDILOL LISINOPRIL ASA ATROVASTATIN Protocol: LEXISCAN Max HR: 97 BPM 72% of Pred: 133 BPM Max BP: 174/82 mmHG Max Work Load: 1.0 METS Pharmacologcial stress test with Lexiscan while pt marches in his chair, with reports of abodminal discomfort and SOB, with isolated PVCs, with normotensive response to exercise. Nondiagnostic EKG for ischemia. In recovery, pt treated with IVP Aminophylline 75 mg to reverse Lexiscan after which pt feeling back to baseline. Nuclear images pending. Test reviewed with Dr. Godoy. PS- baseline HTN at 174/82, held his PM and AM Carvedilol. Referred By: Janett Duarte Electronically Signed By: Antoine Fernández
== END ==
LOC: HO.CARD 08:43
PROVIDERS: PCP Internal Medicine; Visit Provider Nurse Practitioner Family
DX: Z01.810 Encounter for preprocedural cardiovascular examination (principal); I25.10 Atherosclerotic heart disease of native coronary artery without angina pectoris
CPT/HCPCS: 78452; 93017; A9500; J0280; J2785

== ENCOUNTER → 2024-11-21 08:51 | Outpatient (BNV) | payer MEDICARE, SELFPAY ==
[2024-11-07 09:52] VITALS: BP 120/60; BP 128/62; BP 143/64; BMI 25.2
== END ==
PROVIDERS: PCP Internal Medicine
DX: Z01.810 Encounter for preprocedural cardiovascular examination (principal)
CPT/HCPCS: 78452; 93016; 93018

== ENCOUNTER 2024-11-28 06:07 | Inpatient (IN) | payer MEDICARE, SELFPAY ==
[2022-12-29 15:18] VITALS: BP 120/60; BMI 25.2
--- OUTSIDE RECORDS SUMMARY | 2024-11-03 14:19 | XMS_ITS | Patient Health Record ---
Author Organization [facility] Address [address] [place] [address] Care Team Providers Care Head Control Clerk Name Role Phone Ross Gaxiola MD Primary Care Provider Suma dumont Robert Anguiano Unavailable [phone] Reason For Referral No Information Medications Medication SIG (Take, Route, Frequency, Duration) Notes Start Date End Date Status Ibuprofen 200 MG 1 tablet as needed O rally every 6 hrs Active Centrum Silver 1 1 Orally QD A ctive Colyte w Flavor Packs 240 GM as directed Orally as directed for 1 day(s) 09/01/2014 Active Lovastatin 40 MG 1 tablet with a meal Orally Once a day Active Problems Problem Type SNOMED Code ICD Code Onset Dates Problem Status W/U Status Risk Notes Problem Pre-surgery evaluation (790805090) Other specified pre-operative examination (V72.83) Active confirmed Problem Colon cancer screening (116704095) Colon cancer screening (V76.51) Active confirmed Problem History of polyp of colon (202382236) H/O adenomatous polyp of colon (V12.72) Active confirmed Problem Hypertension (64046655) Hypertension (401.9) Active confirmed Plan Of Treatment Future Test Test Name Order Date COLONOSCOPY 08/29/2014 Insurance Providers Payer Name Payer Address Payer Phone Subscriber Number Group Number Insured Name Patient Relationship to Insured Coverage Start Date Coverage End Date MEDICARE OF [place] [address] [place] [address] [id number] JAMILA VALERIO Self - patient is the insured [employer] ATT[employer] CLAIMS [address] [place] [phone] [id number] JAMILA VALERIO Self - patient is the insured Medical (General) History Medical History History ICD Code Colonoscopy 04-09-2009--hyperplastic abhay yps and 2 lipomas Tubular adenomas removed in 2005 Hyperlipidemia Denies [place],DM,CVA,Lung disease,renal dise ase Surgical History Surgery Date(Month/Year) tonsillectomy
--- NOTE | 2024-11-04 | ECG_ITS ---
Test Reason : PREOP Blood Pressure : */* mmHG Vent. Rate : 61 BPM Atrial Rate : 61 BPM P-R Int : 224 ms QRS Dur : 76 ms QT Int : 408 ms P-R-T Axes : 75 64 7 degrees QTcB Int : 410 ms Sinus rhythm with 1st degree A-V block with Premature atrial complexes Otherwise normal ECG When compared with ECG of 04-Nov-2022 05:05, Premature atrial complexes are now Present Referred By: Licha Umaña Electronically Signed By: ABE DE ANDA
[2024-11-04 13:18] VITALS: BP 177/85; PULSE 53; RESP 20; O2SAT 97; BMI 25.0
--- NOTE | 2024-11-04 13:33 | HO.ANESPROP2 ---
Documented by User: Licha Umaña NP 11/24/24 13:27 HPI - Anesthesia Eval Consult details Narrative: 89yo M for Abdominal Endovascular Aortic Aneurysm Repair, 11/28/24 Cardiac optimized. Follows with [facility] for [place] s/p stent Patient may proceed with vascular surgery with a low to intermediate cardiac risk. He has known CAD / LAD stent with normal nuclear stress test. Aspirin can be held if needed for the procedure and restart as soon as cleared by surgeon to do so. Call/consult Cardiology if needed. No recent illness No CP/SOB. Some mild BARROW with push mower. Will rest for a few minutes then continue COPD: rare symptoms. Does not use albuterol. Rec'd albuterol 1 x daily for 3 days preop HTN: BP elevated at PAT (199/90 left, 177/85 right) - previous PCP and cardiac office visit within goal. Will discuss with finish cleaner at preop. CAD s/p stent 2022 DNR [facility] Active Problems Active Problems: All Active Problems Abdominal aneurysm (Acute) Prostate cancer (Acute) History of smoking at least 1 pack per day for at least 30 years (Acute) Cholelithiasis (Acute 09/08/22) Weak urinary stream (Acute) Allergic rhinitis (Acute) COPD (chronic obstructive pulmonary disease) (Acute) Prostate nodule (Acute) Elevated PSA (Acute) BPH w urinary obs/LUTS (Acute) CAD (coronary artery disease) (Acute) HTN (hypertension) (Acute) Past Medical History Medical History Vertigo STEMI (ST elevation myocardial infarction) Allergic rhinitis COPD (chronic obstructive pulmonary disease) Former smoker Elevated cholesterol CAD (coronary artery disease) HTN (hypertension) Acute coronary syndrome BPH w urinary obs/LUTS Prostate nodule Elevated PSA Family History Family History Father Prostate cancer Diabetes Mother Heart attack Family history of problems with anesthesia: No Surgical History Surgical History Hx of oral surgery Hx of cholecystectomy Hx of colonoscopy (~10/12/14) Stented coronary artery History of tonsillectomy History of Problems with Anesthesia: No Social History Social History Housing: House Are you a primary progressive care unit registered nurse to a significant other at home: No Do you presently have visiting nurse or other home services: No Alcohol intake: current Alcohol intake frequency: does not drink Patient Tobacco Use Status: Former Tobacco user Tobacco use type: Cigarette Years Smoked: 62 e-Cigarette/Vaping Use: Former Use Use of substances other than those prescribed or required for medical reasons: No Have you been hit, kicked, punched, or otherwise hurt by someone within the past year? If so, by whom?: No Spiritual Healthcare Practices: no Mosque Healthcare Practices: no Cultural Healthcare Practices: no Are you DNR?: Yes Advance Directives: Yes ( is HCP & has DNR as part of his Will) Advance Directives Information Provided: Yes Advance Directives on File: Yes Advance Directives Date on File: 09/08/22 Poor oral hygiene: Yes (full upper & lower) service: No Current occupational status: retired Cognitive needs: No Hearing needs: No Vision needs: Yes (rx glasses) Meds Allergies Allergy/AdvReac Type Severity Reaction Status Date / Time No Known Allergies (No Known Allergy Verified 11/28/24 06:18 Allergies*) Home Medications ?Medication ?Instructions ?Recorded ?Confirmed ?Last Taken ?Type multivitamin 1 tab PO DAILY 06/16/22 11/28/24 11/27/24 History aspirin 81 mg tablet,delayed 81 mg PO QPM 09/03/22 11/28/24 11/27/24 History release (Adult Low Dose Aspirin) atorvastatin 80 mg tablet 80 mg PO BEDTIME 11/04/24 11/28/24 11/27/24 History finasteride 5 mg tablet 5 mg PO QPM 11/04/24 11/08/24 11/07/24 History Exam Height,Weight and Vital Signs: Height 5 ft 11 in Weight 81.193 kg Last Vital Signs Pulse 53 11/04/24 13:18 Resp 20 11/04/24 13:18 BP 177/85 H 11/04/24 13:18 Pulse Ox 97 11/04/24 13:18 O2 Del Method Room Air 11/04/24 13:18 Pertinent Lab Results Pertinent Lab Results: Lab Results 11/04/24 11/04/24 Range/Units 14:11 14:19 WBC 8.3 (4.8-10.8) X10*3/uL RBC 4.34 L (4.60-5.80) X10*6/uL Hgb 12.7 L (14.0-18.0) g/dl Hct 39.2 L (42.0-52.0) % MCV 90.3 (80.0-98.0) fL MCH 29.3 (27.0-33.0) pg MCHC 32.4 (31.0-36.0) g/dl RDW 12.9 (11.0-16.0) % Plt Count 148 L (160-400) X10*3/uL MPV 13.2 H (9.4-12.4) fL Absolute Nucleated RBC 0.000 (0.0-0.012) X10*3/uL Nucleated RBC % (auto) 0.0 (0.0-0.2) /100WBC PT 11.1 (10.9-12.4) SEC INR 1.0 (0.9-1.1) APTT 34.2 (26.0-36.8) SEC Sodium 142 (135-145) mmol/L Potassium 4.6 (3.3-5.1) mmol/L Chloride 105 (96-108) mmol/L Carbon Dioxide 31 H (22-29) mmol/L Anion Gap 11 L (12-20) BUN 21 H (9-16) mg/dL Creatinine 0.99 (0.5-1.4) mg/dL Estim Creat Clear Calc 55.9 Estimated GFR > 60 Random Glucose 93 (60-115) mg/dL Calcium 9.3 (8.4-10.2) mg/dL Blood Type A Positive Antibody Screen NEGATIVE Narrative Narrative: EKG 10/2024 Vent. Rate : 61 BPM Atrial Rate : 61 BPM P-R Int : 224 ms QRS Dur : 76 ms QT Int : 408 ms P-R-T Axes : 75 64 7 degrees QTcB Int : 410 ms Sinus rhythm with 1st degree A-V block with Premature atrial complexes Otherwise normal ECG When compared with ECG of 04-Nov-2022 05:05, Premature atrial complexes are now Present ECHO 11/2024 Conclusions: - 1. Normal LV ejection fraction of 60 65% with pseudonormal filling pattern with elevated left ventricular end-diastolic pressure 2. Calcific aortic and mitral valve changes with normal cardiac valvular Dopplers 3. No gross pericardial effusion NM cardiolite stress test 11/2024 Impression: 1. Myocardial perfusion imaging study shows normal myocardial perfusion. 2. Gated LVEF is 58% during stress; 46% during rest but visually appears higher. Correlate with echocardiogram. 3. Transient ischemic dilatation not present. EKG component of the test reported separately. Airway Mallampati Class: I TM Dist: >3cm Neck ROM: Full Denture: Upper and Lower Heart: RRR Lungs: CTAB Assessment and Plan Assessment Anesthesia Assessment: Anesthesia Plan Discussed and PAT Visit Final Anesthetic Review Family History of Problems with Anesthesia: No History of Problems with Anesthesia: No Documented by User: Taz Mosquera MD 11/28/24 06:51 [facility] Past Medical History Medical History Vertigo STEMI (ST elevation myocardial infarction) Allergic rhinitis COPD (chronic obstructive pulmonary disease) Former smoker Elevated cholesterol CAD (coronary artery disease) HTN (hypertension) Acute coronary syndrome BPH w urinary obs/LUTS Prostate nodule Elevated PSA Functional capacity: independent ambulation Family History Family History Father Prostate cancer Diabetes Mother Heart attack Surgical History Surgical History Hx of oral surgery Hx of cholecystectomy Hx of colonoscopy (~10/12/14) Stented coronary artery History of tonsillectomy Social History Social History Housing: House Are you a primary progressive care unit registered nurse to a significant other at home: No Do you presently have visiting nurse or other home services: No Alcohol intake: current Alcohol intake frequency: does not drink Patient Tobacco Use Status: Former Tobacco user Tobacco use type: Cigarette Years Smoked: 62 e-Cigarette/Vaping Use: Former Use Use of substances other than those prescribed or required for medical reasons: No Have you been hit, kicked, punched, or otherwise hurt by someone within the past year? If so, by whom?: No Spiritual Healthcare Practices: no Mosque Healthcare Practices: no Cultural Healthcare Practices: no Are you DNR?: Yes Advance Directives: Yes ( is HCP & has DNR as part of his Will) Advance Directives Information Provided: Yes Advance Directives on File: Yes Advance Directives Date on File: 09/08/22 Poor oral hygiene: Yes (full upper & lower) service: No Current occupational status: retired Cognitive needs: No Hearing needs: No Vision needs: Yes (rx glasses) Meds Allergies Allergy/AdvReac Type Severity Reaction Status Date / Time No Known Allergies (No Known Allergy Verified 11/28/24 06:18 Allergies*) Home Medications ?Medication ?Instructions ?Recorded ?Confirmed ?Last Taken ?Type multivitamin 1 tab PO DAILY 06/16/22 11/28/24 11/27/24 History aspirin 81 mg tablet,delayed 81 mg PO QPM 09/03/22 11/28/24 11/27/24 History release (Adult Low Dose Aspirin) atorvastatin 80 mg tablet 80 mg PO BEDTIME 11/04/24 11/28/24 11/27/24 History finasteride 5 mg tablet 5 mg PO QPM 11/04/24 11/08/24 11/07/24 History Assessment and Plan Final Anesthetic Review NPO: Yes ASA Class: III Final Preanesthetic Review: No Changes in Pt Med Stat, Meds/Allgs Chart Reviewed, Consent Obtained/Reviewed and Anes Risks/Benef Reviewed Patient Risk: High Procedure Risk: Intermediate Anesthetic Plan Anesthetic Plan: GA Disposition: Standard PACU
[2024-11-04 14:49] LABS: INTERNATIONAL NORM RATIO 1.0 (0.9-1.1); Prothrombin Time 11.1 SEC (10.9-12.4)
[2024-11-04 14:52] LABS: Partial Thromboplastin Time 34.2 SEC (26.0-36.8)
[2024-11-04 14:55] LABS: Hematocrit 39.2 % (42.0-52.0); Hemoglobin 12.7 g/dl (14.0-18.0); Mean Corpuscular HGB Conc 32.4 g/dl (31.0-36.0); Mean Corpuscular Hemoglobin 29.3 pg (27.0-33.0); Mean Corpuscular Volume 90.3 fL (80.0-98.0); NRBC Abs Auto 0.000 X10*3/uL (0.0-0.012); NRBC Pct Auto 0.0 /100WBC (0.0-0.2); Platelet Count 148 X10*3/uL (160-400); Red Blood Count 4.34 X10*6/uL (4.60-5.80); White Blood Count 8.3 X10*3/uL (4.8-10.8)
[2024-11-04 15:05] LABS: Anion Gap 11 (12-20); Blood Urea Nitrogen 21 mg/dL (9-16); Calcium 9.3 mg/dL (8.4-10.2); Carbon Dioxide 31 mmol/L (22-29); Chloride 105 mmol/L (96-108); Creatinine Clr Calc Pharmacy 55.9; Estimated Glomerular Filt Rate > 60; Potassium 4.6 mmol/L (3.3-5.1); Sodium 142 mmol/L (135-145)
[2024-11-07 09:52] VITALS: BP 120/60; BP 128/62; BP 143/64; BMI 25.2
[2024-11-28] VITALS (26 sets, daily range): BP systolic 127–178; BP diastolic 52–76; PULSE 49–63; RESP 12–18; TEMP 36.2–36.6; O2SAT 91–100; BMI 24.4
[2024-11-28] MEDS: Lactated Ringers 1,000 ML 100 ML IVCONT (06:49)
[2024-11-28 07:01] LABS: INTERNATIONAL NORM RATIO 1.0 (0.9-1.1); Prothrombin Time 11.8 SEC (10.9-12.4)
[2024-11-28 07:04] LABS: Partial Thromboplastin Time 34.9 SEC (26.0-36.8)
[2024-11-28 07:07] LABS: Anion Gap 12 (12-20); Blood Urea Nitrogen 22 mg/dL (9-16); Calcium 9.0 mg/dL (8.4-10.2); Carbon Dioxide 29 mmol/L (22-29); Chloride 107 mmol/L (96-108); Creatinine Clr Calc Pharmacy 55.4; Estimated Glomerular Filt Rate > 60; Potassium 5.0 mmol/L (3.3-5.1); Sodium 143 mmol/L (135-145)
[2024-11-28 07:17] LABS: Hematocrit 40.0 % (42.0-52.0); Hemoglobin 13.2 g/dl (14.0-18.0); Mean Corpuscular HGB Conc 33.0 g/dl (31.0-36.0); Mean Corpuscular Hemoglobin 29.6 pg (27.0-33.0); Mean Corpuscular Volume 89.7 fL (80.0-98.0); NRBC Abs Auto 0.000 X10*3/uL (0.0-0.012); NRBC Pct Auto 0.0 /100WBC (0.0-0.2); PLT CLUMP 1; Red Blood Count 4.46 X10*6/uL (4.60-5.80)
--- NOTE | 2024-11-28 07:39 | P.HPSUR_ITS ---
Pre-Procedural Eval Section A - 24 Hr Update-Section A only Date of Service: 11/28/24 Section B - Complete if H&P > 30 days Chief Complaint: AAA Relevant Family History (Specify if Yes): No Relevant Social History: Tobacco Use Allergies: Allergies Allergy/AdvReac Type Severity Reaction Status Date / Time No Known Allergies (No Known Allergy Verified 11/28/24 06:18 Allergies*) Review of Systems Sugical H&P ROS: Negative: Constitution, Cardiovascular, Respiratory, Neurological, Psychiatric, Hem-Onc, Allergic/Immunologic, Gastrointestinal, Genitourinary, Musculoskeletal and Integumentary Exam Surgical H&P Exam: Normal: HEENT, Normal: Heart, Normal: Lungs, Normal: Extremi ties and Normal: Abdomen Plan Diagnosis/Plan: Unchanged I have reviewed the history and physical and performed a pertinent physical examination on my patient. No changes have occurred unless specified. Time Spent With Patient Time: Total time managing care of this patient today _10___ minutes.
[2024-11-28 07:57] LABS: Platelet Count 139 X10*3/uL (160-400); White Blood Count 8.2 X10*3/uL (4.8-10.8)
--- NOTE | 2024-11-28 08:14 | PHA.MEDREC ---
Pharmacy Consult ? Medication Reconciliation Pharmacy has completed the medication reconciliation. Reviewed med rec done by nursing, matches claims.
--- NOTE | 2024-11-28 10:32 | P.OP_ITS ---
Operative Note Operative Note Date of Service: 11/28/24 Narrative: Operative note by [facility] Preoperative diagnosis: Abdominal aortic aneurysm Postoperative diagnosis: Same Procedure: 1. Right femoral artery cutdown 2. Percutaneous left common femoral artery access 3. Endovascular aortic aneurysm repair (Endologix AFX 2 device) 4. Radiologic supervision and interpretation 5. Left limb iliac extension Surgeon:Joseph Salcedo M.D. Metal Polisher: Dr. Rivera Anesthesia: General endotracheal Specimens: None Drains: None Estimated blood loss: 100 mL Indications: 89-year-old gentleman with abdominal aortic aneurysm and left iliac artery aneurysm presents for endovascular repair The patient had he is aortic aneurysm confirmed on CT angiogram. Based on the anatomy and topography he is now for endovascular aneurysm repair possible open repair. The patient has signed the informed consent after reviewing risks, complications, benefits, and alternatives previously discussed with the patient. The patient was given the opportunity to ask any additional questions or voice any concerns. All questions were answered to the patient's satisfaction. Procedure in detail: Patient was brought to the operating room prior to which a time-out was called for patient identification and site verification abdomen and bilateral groins were prepped and draped in a standard surgical fashion. Cutdown was performed on the left common femoral artery using standard technique. This was a transverse incision. We then dissected down to the common femoral artery. This was encircled with silastic loops. Right common femoral was accessed under ultrasound guidance with a percutaneous 5 Stateless sheath. The ipsilateral side which was the right side a 5 Stateless sheath was then placed as well. Angiogram was performed to measure the vessel length and characterize the anatomy and its topography. We then exchanged for a 7 Stateless sheath, and then placed a marker pigtail catheter up the left side into the level of the aorta at the level of the renals. On the right side which was the HC side we exchanged out the Bentson wire for a Lunderquist wire. This was done through a angled glide cath. We parked the tip the Lunderquist at the aortic arch. At this time 5000 units of heparin was administered. After 5 minutes of circulation time we loaded the 25-100/20-40 AFX2 bifurcated device onto the Lunderquist wire and advanced the contralateral wire up through the 17 Stateless OD FX introducer sheath using the wire guide. Contralateral wire was snared and pulled out the contra side. FX 2 bifurcated device was then transferred into the a FX introducer sheath and advanced under fluoroscopic guidance until the distal limbs were above the aortic bifurcation releasing the limbs of the graft. We pulled the entire system down on to the aortic bifurcation. We deployed the main body of the graft by pulling on the control cord handle. We then deployed the contra limb by pulling the yellow limb cover, then we advanced a pigtail catheter over the contra wire until the tip was in contact with the wire lock. We held the pigtail catheter in place and pulled the contra wire to release it from the wire lock. We deployed the ipsi limb by pinning the inner core and retracting the a FX introducer sheath. We then deployed a 28-95 suprarenal endograft and performed angiogram to visualize the renal arteries. We removed the extension delivery device from the a FX introducer sheath and advanced a Merit Q50X balloon to the proximal end of the endograft main body. We ballooned the endograft system through the main body and ipsilateral limb. There was an aneurysmal portion of the common iliac. A 22-45 iliac extension was placed on the left side. In additional 22-45 iliac extension was placed on the left side. We once again used AQ 50 X balloon to obtain good wall apposition. We then inserted the balloon through the contralateral side and ballooned the contralateral limb as well. We performed a final angiogram, removed catheters and sheaths. The right groin was closed with a StarClose closure device. The left groin was closed with a 6 0 Prolene in a running fashion. We then reapproximated the deep layer with 2-0 Polysorb. The superficial layer was then reapproximated with a 3-0 Polysorb. Finally skin was closed with a running subcuticular 4 O Monocryl. Dermabond was used as sterile dressing. At the end the case sponge needle instrument counts were correct. Patient tolerated the procedure well, and returned to recovery with stable vitals Interpretation of films: 1. Ultrasound guidance demonstrated appropriate puncture 2. Initial aortogram confirmed anatomy and topography the infrarenal aortic aneurysm. 3. Completion angiogram demonstrated appropriate deployment of graft with no evidence of endoleak 4. Iliac aneurysm appeared to be excluded as well. Conclusion: Successful deployment Endologix AFX2 aortic endograft. This note is constructed using voice recognition software. While every effort has been made to ensure accuracy, paediatrician errors may have been included. Thank you for allowing me to participate in the care of your patient. Yours sincerely, Joseph Salcedo MD, FACS, R.P.V.I.
--- NOTE | 2024-11-28 15:00 | PM.CCHP ---
History of Present Illness Date of Service: 11/28/24 Chief Complaint: Status post elective endovascular AAA repair 89-year-old gentleman with underlying hypertension, BPH, prostate cancer, CAD, COPD, and AAA now postoperative day 0 after an elective endovascular AAA repair being monitored in the intensive care unit. Review of Systems Constitutional: Constitutional: Denies daytime sleepiness, Denies excessive sweating, Denies fatigue, Denies fever(s), Denies lethargy, Denies malaise, Denies night sweats, Denies snoring and Denies weight loss Eyes: Eyes: Denies blurry vision and Denies itchy eyes ENT: Denies nasal congestion, Denies post nasal drip, Denies sinus pain, Denies sinus pressure and Denies other ( Thrush) Cardiovascular: Cardiovascular: Denies chest pain, Denies pedal edema, Denies dyspnea, Denies orthopnea and Denies paroxysmal nocturnal dyspnea Respiratory: Respiratory: Denies cough, Denies hemoptysis, Denies excessive phlegm production, Denies dyspnea, Denies snoring and Denies wheezing Gastrointestinal: Gastrointestinal: Denies abdominal pain and Denies heartburn Musculoskeletal: Musculoskeletal: Denies myalgias, Denies arthralgias and Denies joint swelling Integumentary/Breasts: Skin/Breast: Denies rash Neurologic: Denies memory loss and Denies seizure-like activity Psychiatric: Psychiatric: Denies abnormal sleep pattern, Denies anxiety and Denies memory loss Endocrine: Endocrine: Denies excessive sweating, Denies fatigue and Denies heat intolerance Hematologic/Lymphatic: Hematologic/Lymphatic: Denies easy bruising Allergic/Immunologic: Allergic/Immunologic: Denies itchy eyes, Denies seasonal rhinorrhea and Denies wheezing PMFSH Past Medical History Medical History Vertigo STEMI (ST elevation myocardial infarction) Allergic rhinitis COPD (chronic obstructive pulmonary disease) Former smoker Elevated cholesterol CAD (coronary artery disease) HTN (hypertension) Acute coronary syndrome BPH w urinary obs/LUTS Prostate nodule Elevated PSA Family History Family History Father Prostate cancer Diabetes Mother Heart attack Surgical History Surgical History Hx of oral surgery Hx of cholecystectomy Hx of colonoscopy (~10/12/14) Stented coronary artery History of tonsillectomy Social History Social History Housing: House Are you a primary physician primary care sports medicine to a significant other at home: No Do you presently have visiting nurse or other home services: No Alcohol intake: current Alcohol intake frequency: does not drink Patient Tobacco Use Status: Former Tobacco user Tobacco use type: Cigarette Years Smoked: 62 e-Cigarette/Vaping Use: Former Use Use of substances other than those prescribed or required for medical reasons: No Have you been hit, kicked, punched, or otherwise hurt by someone within the past year? 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 Will) Advance Directives Information Provided: Yes Advance Directives on File: Yes Advance Directives Date on File: 09/08/22 Poor oral hygiene: Yes (full upper & lower) service: No Current occupational status: retired Cognitive needs: No Hearing needs: No Vision needs: Yes (rx glasses) Meds Allergies Allergy/AdvReac Type Severity Reaction Status Date / Time No Known Allergies (No Known Allergy Verified 11/28/24 06:18 Allergies*) Active Medications: Current Medications Acetaminophen (Acetaminophen 325 Mg Tablet) 650 mg PO Q6H PRN PRN Reason: Pain, Mild 1-3,fever,headache Albuterol Sulfate (Albuterol Sulfate (0.083%) 2.5 Mg/3 Ml Vial.Neb) 2.5 mg INHALE ONCE PRN PRN Reason: Shortness of Breath/Wheezing Calcium Carbonate (Calcium Carbonate 750 Mg Tab.Chew) 750 mg PO Q4H PRN PRN Reason: Heartburn Lactated Ringer's (Lr) 1,000 mls @ 100 mls/hr IVCONT .Q10H RODDY Last Admin: 11/28/24 06:49 Dose: 100 mls/hr Lactated Ringer's (Lr) 500 mls @ 20 mls/hr IVCONT .Q24H RODDY Magnesium Hydroxide (Milk Of Magnesia 30 Ml Oral.Susp) 30 ml PO DAILY PRN PRN Reason: Constipation Melatonin (Melatonin 3 Mg Tablet) 6 mg PO BEDTIME PRN PRN Reason: Insomnia Morphine Sulfate (Morphine Sulfate 2 Mg/Ml Cartridge) 2 mg IVPUSH Q4H PRN; Protocol PRN Reason: Pain, Severe (Pain Scale 7-10) Naloxone HCl (Naloxone Hcl 0.4 Mg/Ml Vial) 0.04 mg IVPUSH Q5M PRN PRN Reason: Excessive sedation or RR < 8 Oxycodone HCl (Oxycodone Hcl Immed Release 5 Mg Tablet) 5 mg PO Q4H PRN PRN Reason: Pain, Moderate(Pain Scale 4-6) Sodium Chloride (0.9 % Sodium Chloride Flush 3 Ml Syringe) [facility] ?Medication ?Instructions ?Recorded ?Confirmed ?Last Taken ?Type multivitamin 1 tab PO DAILY 06/16/22 11/28/24 11/27/24 History aspirin 81 mg tablet,delayed 81 mg PO QPM 09/03/22 11/28/24 11/27/24 History release (Adult Low Dose Aspirin) atorvastatin 80 mg tablet 80 mg PO BEDTIME 11/04/24 11/28/24 11/27/24 History finasteride 5 mg tablet 5 mg PO QPM 11/04/24 11/08/24 11/07/24 History Physical Exam Vital Signs: Vital Signs: Last Vital Signs Temp 97.1 F 11/28/24 13:50 Pulse 49 L 11/28/24 13:50 Resp 18 11/28/24 13:50 BP 150/66 H 11/28/24 13:50 Pulse Ox 99 11/28/24 13:50 O2 Del Method Nasal Cannula 11/28/24 13:50 O2 Flow Rate 1 11/28/24 13:50 BMI result Body Mass Index 24.4 Const: General: no acute distress and alert Nutritional Appearance: not obese Orientation/consciousness: Other orientation findings ( oriented) HEENT: Head: Yes atraumatic Eyes: General: appearance normal, both eyes and all related structures Sclerae: sclerae normal EOM: EOMs intact bilaterally Neck: Neck: Yes supple Lymphatic: no lymphadenopathy noted Resp: Effort & Inspection: normal respiratory effort and no use of accessory muscles Auscultation: clear to auscultation bilaterally Cardio: Rate: bradycardic Rhythm: regular rhythm Heart sounds: no gallops, no murmurs and no rubs GI: Palpation (GI): Soft to palpation and Other GI palpation findings present ( Nontender) Auscultation: normal bowel sounds Skin: General skin exam: other ( warm) Extrem: Other: Bilateral femoral vascular access sites without hematoma General: No clubbing, No cyanosis and No edema Results Labs 11/28/24 06:37 11/28/24 06:37 Labs: Laboratory Results - last 24 hr 11/28/24 11/28/24 06:37 06:48 MCV 89.7 MCH 29.6 MCHC 33.0 RDW 12.9 Plt Count 139 L MPV 13.8 H Absolute Nucleated RBC 0.000 Nucleated RBC % (auto) 0.0 PT 11.8 INR 1.0 APTT 34.9 Anion Gap 12 Estim Creat Clear Calc 55.4 Estimated GFR > 60 Random Glucose 99 Calcium 9.0 Blood Type A Positive Antibody Screen NEGATIVE Assessment and Plan (1) Status post percutaneous abdominal aortic aneurysm (AAA) repair: Status: Acute (2) HTN (hypertension): Status: Acute (3) CAD (coronary artery disease): Status: Acute (4) BPH w urinary obs/LUTS: Status: Acute (5) COPD (chronic obstructive pulmonary disease): Status: Acute Plan Assessment: 89-year-old gentleman postoperative day 0 after an elective endovascular AAA repair being monitored in the intensive care unit. Plan: Neuro: No acute issues. Cardiac: Postoperative day 0 after an elective endovascular AAA repair. Vascular surgery service care appreciated. Maintain SBP under 160. Pulmonary: No acute issues. Renal: No acute issues. Endo: No acute issues. GI: No acute issues. ID: No acute issues Heme/Onc: No acute issues. Psych: No acute issues. Miscellaneous: No acute issues. Prophylaxis: Per vascular surgery Diet: Per vascular surgery
--- NOTE | 2024-11-28 16:05 | ECG_ITS ---
Test Reason : pre-op Blood Pressure : */* mmHG Vent. Rate : 52 BPM Atrial Rate : 52 BPM P-R Int : 226 ms QRS Dur : 86 ms QT Int : 480 ms P-R-T Axes : 75 51 28 degrees QTcB Int : 446 ms Sinus bradycardia with 1st degree A-V block Otherwise normal ECG When compared with ECG of 04-Nov-2024 14:04, Premature atrial complexes are no longer Present Referred By: Dg Galvan Electronically Signed By: Bryan Barrso
[2024-11-28] MEDS: 0.9 % Sodium Chloride Flush 3 ML SYRINGE IVFLUSH (17:48)
--- NOTE | 2024-11-28 18:28 | HE.ICUCC ---
Addendum entered by Blanka Reyes RN 11/29/24 07:54: Tanya was positional, zeroed varies times, SBP start 150's and fluctuating 150's-170's Original Note: ICU Critical Care Nursing Note ICU Day #:1 Neuro:Alert and oriented x4, forgetful at times. Cardiac: On arrival to unit left Groin noted to be swollen by PACU nurse, Dr Salcedo made aware x2 by [employer]ER and no answer, outlined hardened area, no significant growth noted, Dr Galvan made aware, came to patient bedside and instructed to continue to monitor as not growing in size, Elevated BP, on Tanya, Automated 20 less than Tanya, Dr Galvan ordered Labetalol if SBP on Automated BP >160, maintained 140-150 SBP automated, Dr Salcedo made aware and Lisinopril ordered and given. Pedal pulses palpable bilaterally. Resp: Dim Throught out, O2 decreased to 86% on room air, placed on 1L and maintained 90-94% GI/: no nausea or vomiting, tolerated meal well, Diet approved by Dr Salcedo Integumentary/Musculoskeletal: right and left groin incision, left greater in size and slight swelling noted and outlined Psychosocial (family etc.): at bedside this afternoon
[2024-11-28] MEDS: Aspirin Enteric Coated 81 MG TABLET.DR PO (20:42)
[2024-11-29] VITALS (17 sets, daily range): BP systolic 106–157; BP diastolic 45–58; PULSE 51–99; RESP 12–21; TEMP 36.1–36.9; O2SAT 88–97; BMI 23.2
[2024-11-29] MEDS: Lactated Ringers 500 ML 999 ML IV (00:12)
[2024-11-29 06:03] LABS: MANUAL DIFF FLAG NO
[2024-11-29 06:05] LABS: Hemoglobin 11.4 g/dl (14.0-18.0); NRBC Abs Auto 0.000 X10*3/uL (0.0-0.012); NRBC Pct Auto 0.0 /100WBC (0.0-0.2); PLT ABN DIST 1; SCAN SMEAR FLAG 1
[2024-11-29 06:07] LABS: Hematocrit 35.1 % (42.0-52.0); Imm Gran Abs Auto 0.06 X10*3/uL (0.00-0.03); Imm Gran Pct Auto 0.5 % (0.0-0.4); Lymphocytes Absolute Auto 1.5 X10*3/uL (1.2-4.9); Mean Corpuscular HGB Conc 32.5 g/dl (31.0-36.0); Mean Corpuscular Hemoglobin 29.3 pg (27.0-33.0); Mean Corpuscular Volume 90.2 fL (80.0-98.0); Platelet Count 130 X10*3/uL (160-400); Red Blood Count 3.89 X10*6/uL (4.60-5.80); White Blood Count 12.9 X10*3/uL (4.8-10.8)
[2024-11-29 06:23] LABS: Albumin Level 3.2 g/dL (3.5-5.0); Anion Gap 11 (12-20); Blood Urea Nitrogen 24 mg/dL (9-16); Calcium 8.6 mg/dL (8.4-10.2); Carbon Dioxide 29 mmol/L (22-29); Chloride 108 mmol/L (96-108); Creatinine Clr Calc Pharmacy 42.6; Estimated Glomerular Filt Rate 52; Magnesium 2.0 mg/dL (1.6-2.6); Potassium 5.0 mmol/L (3.3-5.1); Sodium 143 mmol/L (135-145)
--- NOTE | 2024-11-29 07:30 | PC.NURSE ---
Critical Care Nursing Note? Assumed care of the patient at 1900. The patient is alert and oriented, and communicates appropriately.? Patient with abdominal discomfort from dinner, tums administered.? Bilateral groin sites intact, left groin with edema (site marked post op). Patient with low urine output, Mamadou Yadav NP notified, 500ml LR bolus administered. Report given to oncoming shift.
[2024-11-29] MEDS: Albumin Human 25 % 100 ML IV (08:32)
[2024-11-29] MEDS: 0.9 % Sodium Chloride Flush 3 ML SYRINGE IVFLUSH ×2 (08:33)
--- NOTE | 2024-11-29 08:35 | HO.POSTANES ---
Post Anesthesia Evaluation Post Anesthesia Evaluation Date of Service: 11/29/24 Vital Signs: Vital Signs Temp Pulse Pulse Resp BP BP Pulse Ox 11/29/24 08:00 97.8 F 57 18 147/55 H 97 11/29/24 07:00 57 18 150/58 H 96 11/29/24 06:00 59 15 144/51 H 96 11/29/24 05:00 53 12 141/47 H 95 11/29/24 04:17 57 144/50 H 11/29/24 03:57 96.9 F 58 19 135/45 L 97 11/29/24 02:58 55 19 143/56 H 93 11/29/24 02:00 70 18 157/58 H 92 11/29/24 01:00 56 13 155/57 H 95 11/29/24 00:07 51 133/50 L 11/29/24 00:00 97.7 F 55 13 143/54 H 94 11/28/24 23:00 60 13 151/52 H 95 11/28/24 22:00 59 17 158/59 H 91 L 11/28/24 20:57 59 16 155/62 H 93 11/28/24 20:41 58 164/67 H O2 Del Method O2 Flow Rate 11/29/24 08:00 Nasal Cannula 1 11/29/24 07:00 Nasal Cannula 1 11/29/24 06:00 Nasal Cannula 1 11/29/24 05:00 Nasal Cannula 1 11/29/24 04:17 11/29/24 03:57 Nasal Cannula 1 11/29/24 02:58 Nasal Cannula 1 11/29/24 02:00 Nasal Cannula 1 11/29/24 01:00 Nasal Cannula 1 11/29/24 00:07 11/29/24 00:00 Room Air 1 11/28/24 23:00 Nasal Cannula 1 11/28/24 22:00 Nasal Cannula 1 11/28/24 20:57 Nasal Cannula 1 11/28/24 20:41 Anesthesia: General Endotracheal-GETA Mental Status: Awake Nausea/Vomiting: None Hydration: Adequate Anesthesia-Related Issues: No Anes. Related Issues
--- NOTE | 2024-11-29 09:30 | MHC.CM.PN ---
Met with patient in regards to discharge planning. Patient lives with his , ambulates independently and had no services prior to coming to the hospital. No services anticipated to be needed because patient is not homebound. PCP verified. Copy of HCP verified to be on file. IMM explained and signed. Patient's will transport him home when medically stable. Continue to monitor for d/c needs.
--- NOTE | 2024-11-29 13:35 | PM.DS ---
DS: Providers Provider Date of Service: 11/29/24 Date of admission: 11/28/24 06:07 Date of discharge: 11/29/24 Primary care physician: Jame Contreras MD DS: Diagnosis Discharge Diagnosis (1) Status post percutaneous abdominal aortic aneurysm (AAA) repair: Status: Acute (2) HTN (hypertension): Status: Acute (3) CAD (coronary artery disease): Status: Acute (4) BPH w urinary obs/LUTS: Status: Acute (5) COPD (chronic obstructive pulmonary disease): Status: Acute DS: Summary Hospital Course Hospital Course: Patient underwent endovascular aneurysm repair on 11/28/2024. 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 Did well postoperatively. Was observed in the ICU overnight. Postop day 1 was tolerating regular diet. Bison comfortable and wanted to go home. He was subsequently discharged. Status at Discharge Functional status at discharge: independent ambulation Overall status at discharge: patient is back to baseline Time Attestation Discharge Coordination Time (in mins): 35 Quality: Safe Use of Opioids Does Pt have an Active Cancer Diagnosis on the Problem List?: No Quality: Stroke Does the patient have a stroke diagnosis?: No Physical Exam Vital Signs: Vital Signs: Last Vital Signs Temp 98.5 F 11/29/24 12:00 Pulse 57 11/29/24 12:00 Resp 18 11/29/24 12:00 BP 121/55 L 11/29/24 12:00 Pulse Ox 91 L 11/29/24 12:00 O2 Del Method Room Air 11/29/24 12:00 O2 Flow Rate 1 11/29/24 09:00 BMI result Body Mass Index 23.2 Const: General: cooperative, healthy appearing and comfortable Orientation/consciousness: oriented to person, oriented to place and oriented to time HEENT: Head: Yes normal to inspection Neck: Neck: Yes normal visual inspection Carotids: no bruits Chest: Chest palpation & inspection: normal inspection of the chest Resp: Effort & Inspection: normal respiratory effort and able to speak in complete sentences Auscultation: clear to auscultation bilaterally, no crackles, no rales, no rhonchi and no wheezes Cardio: Rate: regular rate Rhythm: regular rhythm Heart sounds: S1 normal heart sound present and S2 normal heart sound present Bruits: no carotid bruits Peripheral pulses: Peripheral pulses 2+ throughout GI: Inspection: Yes normal to inspection Skin: Other: Bilateral groins incision healing well. Left groin minimal hematoma Wounds: no wounds Hair: normal Neuro: General: oriented to person, oriented to place and oriented to time Cranial nerves: Yes CN's II-XII intact bilaterally and Yes Normal hearing present Cognition (Neuro): normal cognition Motor exam (neuro): 5/5 motor strength present throughout Extrem: Other: venous exam: No significant superficial varicosities or spider telangiectasias, minimal edema General: No clubbing, No cyanosis and No edema Psych: Appearance: grossly normal Mental Status: mental status grossly normal Speech and movement: Normal speech and movement present DS: Data Data Completed and Pending Labs on day of discharge: Laboratory Results - last 24 hr 11/29/24 05:32 WBC 12.9 H RBC 3.89 L Hgb 11.4 L Hct 35.1 L MCV 90.2 MCH 29.3 MCHC 32.5 RDW 12.9 Plt Count 130 L MPV 13.8 H Immature Gran % (Auto) 0.5 H Neut % (Auto) 80.1 H Lymph % (Auto) 11.7 L [place] % (Auto) 7.5 Eos % (Auto) 0.0 Baso % (Auto) 0.2 Lymph # (Auto) 1.5 [place] # (Auto) 1.0 Eos # (Auto) 0.0 Baso # (Auto) 0.0 Abs Immat Gran (auto) 0.06 H Absolute Neuts (auto) 10.3 H Absolute Nucleated RBC 0.000 Nucleated RBC % (auto) 0.0 Sodium 143 Potassium 5.0 Chloride 108 Carbon Dioxide 29 Anion Gap 11 L BUN 24 H Creatinine 1.30 Estim Creat Clear Calc 42.6 Estimated GFR 52 Random Glucose 149 H Calcium 8.6 Phosphorus 4.1 Magnesium 2.0 Albumin 3.2 L Discharge Plan Discharge Anticipated Discharge Date/Time: 11/29/24 13:32 Patient Disposition: Home, Self-Care Discharge Diagnosis: Status post endovascular aneurysm repair Referrals: Jame Contreras MD [Primary Care Provider, Internal Medicine] - 1 Week Discharge Medications: Continued carvedilol 3.125 mg tablet 3.125 mg PO BID 90 Days Qty: 180 3RF amlodipine 2.5 mg tablet 2.5 mg PO DAILY Qty: 30 3RF lisinopril 5 mg tablet 10 mg PO QAM Qty: 180 1RF multivitamin Tablet 1 tab PO DAILY aspirin [Adult Low Dose Aspirin] 81 mg tablet,delayed release (DR/EC) 81 mg PO QPM atorvastatin 80 mg tablet 80 mg PO BEDTIME finasteride 5 mg tablet 5 mg PO QPM albuterol sulfate 90 mcg/actuation HFA aerosol inhaler 2 puff inhalation Q4-6H PRN (Reason: shortness of breath or wheezing) 30 Days Qty: 8.5 1RF Discharge Orders: Discharge Order (Routine); Ordered 11/29/24 Ordered By: Joseph Salcedo Diet: Advance to usual diet Activity on Discharge: As tolerated Stand Alone Forms: Patient Portal Discharge page Print Language: Turkish Activity Restrictions/Additional Instructions: Skin glue was used and you may shower as early as tomorrow. Take it easy today and you may ambulate around the house. Within 24 hours you can resume normal activity You may climb a flight of stairs as tolerated Do not lift anything heavier than a gallon of milk f. See Dr. Salcedo in follow-up in approximately 2 weeks time. You should already have an appointment if not please call my office at [phone] Please resume all your home medications and if needed Tylenol for pain If you notice excessive bleeding from the groin please immediately call my office or return to the emergency room. Care Plan Goals: Follow-up aneurysm Health Concerns: Abdominal aortic aneurysm Plan of Treatment: Postop surveillance CAT scan Assessment: Status post endovascular aortic aneurysm repair
--- NOTE | 2024-11-29 14:07 | PC.NURSE ---
assume care @ 0700? Neuro/Respiratory/Cardiac:? Alert & Oriented. Clear lung sound on RA.? Sinus Rhythm on tele, s/p AAA repair day 1,? diminishes pulses Bl dorsalis pedis. A line to the right wrist removed this am. GI/: Regular diet, salcedo cath removed today @ 1000 due to void today at 1600. Skin: Surgical site BL groin Lines: Peripheral IVs ? Physical therapy and RT home 02 evaluation completed?
== END 2024-11-29 14:21 | disposition home or self-care (01) | DRG 269 ==
LOC: HO.SSSA 07:40 → HO.ICU 13:43
PROVIDERS: Internal Medicine Pulmonary Disease; Nurse Practitioner; Admitting Provider Surgery Vascular Surgery; PCP Internal Medicine; Visit Provider Surgery Vascular Surgery
PROC: 04V03DZ Restriction of Abdominal Aorta with Intraluminal Device, Percutaneous Approach (ICD-10-PCS; principal; 2024-11-28 07:30)
DX: I71.40 Abdominal aortic aneurysm, without rupture, unspecified (principal); I25.10 Atherosclerotic heart disease of native coronary artery without angina pectoris; I10 Essential (primary) hypertension; N40.1 Benign prostatic hyperplasia with lower urinary tract symptoms; J44.9 Chronic obstructive pulmonary disease, unspecified; Z87.891 Personal history of nicotine dependence; Z79.82 Long term (current) use of aspirin; Z79.899 Other long term (current) drug therapy
CPT/HCPCS: 36415; 76000; 80048; 82040; 83735; 84100; 85025; 85027; 85610; 85730; 86850; 86900; 86901; 93005; 97161; C1760; C1769; C1773; C1874; C1887; C1889; C1894; C2628; J0690; J1644; J2003; J2305; J2405; J2598; J2704; J2795; J3010; J7120; J8540; P9047; Q9967

== ENCOUNTER 2024-11-28 06:07 | Outpatient (BNV) | payer MEDICARE, SELFPAY ==
[2024-11-30 16:50] VITALS: BP 120/60; BP 128/62; BP 143/64; BMI 25.2
== END 2024-11-28 16:05 ==
PROVIDERS: Admitting Provider Surgery Vascular Surgery; PCP Internal Medicine; Visit Provider Internal Medicine Cardiovascular Disease
DX: I44.0 Atrioventricular block, first degree (principal); R00.1 Bradycardia, unspecified
CPT/HCPCS: 93010

== ENCOUNTER → 2024-11-28 06:07 | Outpatient (BNV) | payer MEDICARE, SELFPAY ==
[2024-11-07 09:52] VITALS: BP 120/60; BP 128/62; BP 143/64; BMI 25.2
== END ==
PROVIDERS: Admitting Provider Surgery Vascular Surgery; PCP Internal Medicine; Visit Provider Internal Medicine Pulmonary Disease
DX: J44.9 Chronic obstructive pulmonary disease, unspecified (principal); Z86.79 Personal history of other diseases of the circulatory system; I25.10 Atherosclerotic heart disease of native coronary artery without angina pectoris; I10 Essential (primary) hypertension; N40.1 Benign prostatic hyperplasia with lower urinary tract symptoms; N13.8 Other obstructive and reflux uropathy
CPT/HCPCS: 99222

== ENCOUNTER → 2024-11-28 06:07 | Outpatient (BNV) | payer MEDICARE, SELFPAY ==
[2024-11-07 09:52] VITALS: BP 120/60; BP 128/62; BP 143/64; BMI 25.2
== END ==
PROVIDERS: Admitting Provider Surgery Vascular Surgery; PCP Internal Medicine; Visit Provider Surgery Vascular Surgery
DX: I71.40 Abdominal aortic aneurysm, without rupture, unspecified (principal)
CPT/HCPCS: 34705; 34812; 99024; 99239

== ENCOUNTER 2024-12-05 14:38 | Outpatient (AMB) | payer MEDICARE, SELFPAY ==
[2024-11-30 16:50] VITALS: BP 120/60; BP 128/62; BP 143/64; BMI 25.2
--- NOTE | 2024-12-05 14:42 | A.OFFPC_ITS ---
Vital Signs 12/05/24 14:46 12/05/24 15:55 12/05/24 15:55 Height 5 ft 11 in Weight 178 lb 2 oz BMI 24.8 BP 160/90 H 150/62 H 142/78 H Blood Pressure Location Lt brachial Lt brachial Rt brachial Position Sitting Sitting Sitting Pulse 63 Pulse Source Pulse Oximeter Temp 97.5 F Temp Source Temporal Artery Scan Pulse Oximetry (%) 97 Oxygen Delivery Method Room Air Intake Visit Reasons: [facility] 11/29 AAA Intake Note: Patient is here for hospital discharge and [facility] follow up. Patient was discharged from [facility] on 11/29/24. Tool And Die Designer Required: No Mechanical Project Manager: Present Accompanied by: Daughter Allergies No Known Allergies (No Known Allergies*) Allergy (Verified 12/05/24 15:20) Medication List - Last Reconciled 12/05/24 by KELLIE Santana albuterol sulfate 90 mcg/actuation 2 puffs inhalation Q4-6H PRN 30 days amlodipine 2.5 mg PO DAILY aspirin (Adult Low Dose Aspirin) 81 mg PO QPM atorvastatin 80 mg PO BEDTIME carvedilol 3.125 mg PO BID 90 days finasteride 5 mg PO QPM lisinopril 10 mg (2 x 5 mg) PO QAM multivitamin 1 tab PO DAILY Tobacco use date assessed: 12/05/24 Fall risk assessment: No Falls in past year Last assessed Fall Risk: 12/05/24 Dental Screening Dental Screen Date: 09/19/24 HPI [facility] 11/29 AAA HPI Details The patient is a 89-year-old male with past medical history of abdominal aortic aneurysm, COPD, CAD, BPH with urinring obs/LUTS, HTN. The patient is accompanied by his daughter. He is presenting for postop follow up appointment for AAA repair with Dr. Salcedo Patient underwent endovascular aneurysm repair on 11/28/2024. 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 Patient reports that his blood pressure was elevated prior to surgery and they increased his lisinopril to 10 mg In office BP right arm 142/78, left arm 150/62 Patient does not check blood pressure at home Amlodipine 2.5 mg increased to 10 mg daily The patient the order we will buy a blood pressure machine today and they will start checking his blood pressure 2 times a day. The patient has a follow up appointment with Dr. Salcedo on 12/13/2024. He will bring the blood pressure readings there. Patient to contact the office if his blood pressure continues to be elevated. Ultimately the patient is unable to travel back and forth to office frequently due to him not being able to drive as yet. Left groin incision noted to have a small pink area. No drainage. No pain to area. The patient reports that he has been taking showers already. Explained to the patient that he needs to cover the area with a piece of plastic while he is taking shower to prevent it from being infected. Patient denies chest pain, denies any increasing shortness of breath beyond is chronic sob with due COPD. He has not smoke for years and drinks red wine once in awhile. Denies abdominal pain, reports one episode of constipation and took two pill otc that he does not remember with positive effect. Otherwise, he is doing ok. TCM TCM Information Date of Discharge 11/29/24 Discharged From [facility] Interactive Contact Date (Reference documentation from this date) 11/30/24 PENDING SALE TO [facility] Medical History Vertigo STEMI (ST elevation myocardial infarction) Allergic rhinitis COPD (chronic obstructive pulmonary disease) Former smoker Elevated cholesterol CAD (coronary artery disease) HTN (hypertension) Acute coronary syndrome BPH w urinary obs/LUTS Prostate nodule Elevated PSA Surgical History History of abdominal aortic aneurysm (AAA) repair Hx of oral surgery Hx of cholecystectomy Hx of colonoscopy (~10/12/14) Stented coronary artery History of tonsillectomy Family History Father Prostate cancer Diabetes Mother Heart attack Social History Household Members: Spouse Housing: House Are you a primary career center director to a significant other at home: No Do you presently have visiting nurse or other home services: No Alcohol intake: current Alcohol intake frequency: does not drink Patient Tobacco Use Status: Former Tobacco user Tobacco use type: Cigarette Years Smoked: 62 e-Cigarette/Vaping Use: Former Use Second Hand Smoke Exposure: Yes Advance Directives Date on File: 09/08/22 service: No Current occupational status: retired Cognitive needs: No Hearing needs: No Vision needs: Yes (rx glasses) Questionnaire Thrive Questionnaire Date Thrive assessed: 11/29/24 TAE-7 AMB Questionnaire TAE-7 Date TAE - 7 assessed: 09/19/24 Source: Developed by Drs. Robert Luna, Ema Jacob, Colton Hudson and colleagues, with an educational lurdes from [employer]. Review of Systems Const Denies body aches, Denies chills, Denies fever(s), Denies headache(s) and Denies poor appetite Eyes Reports no additional complaints ENT Denies dysphagia, Denies dizziness, Denies headache(s) and Denies odynophagia Card Denies chest pain, Denies syncope, Denies edema, Denies irregular heart rhythm, Denies lightheadedness, Denies dyspnea and Reports dyspnea on exertion (Mild general) Resp Denies cough, Denies dyspnea and Reports dyspnea on exertion (Mild general) GI Denies abdominal pain, Reports constipation (One episode that resolve with treatment. Has been normal since), Denies dysphagia, Denies diarrhea, Denies nausea, Denies odynophagia and Denies vomiting Denies urinary hesitancy, Denies urinary incontinence and Denies urinary urgency Musc Reports no additional complaints and Denies abnormal gait Skin/Breast Reports other (Left groin incision) Neuro Denies abnormal gait, Denies dizziness, Denies syncope and Denies headache(s) Psych Reports no additional complaints Physical exam (Primary Care) Vital Signs: Last Vital Signs Temp 97.5 F 12/05/24 14:46 Pulse 63 12/05/24 14:46 BP 160/90 H 12/05/24 14:46 Pulse Ox 97 12/05/24 14:46 Oxygen Delivery Method Room Air 12/05/24 14:46 BMI result Body Mass Index 24.8 Tobacco/Smoking Status: Tobacco use Status Tobacco use date assessed 12/05/24 12/05/24 14:54 Patient Tobacco Use Status Former Tobacco user 12/05/24 14:44 Tobacco use type Cigarette 12/05/24 14:44 e-Cigarette/Vaping Use Former Use 12/05/24 14:44 Thrive Assessment: Date of Thrive Assessment Date Thrive assessed 11/29/24 12/05/24 14:44 Const General: cooperative, healthy appearing, comfortable and no acute distress Orientation/consciousness: patient oriented x3 HENMT Head: Yes normocephalic Ears: hearing grossly normal bilaterally General nose exam: Normal external nose present Eyes General: appearance normal, both eyes and all related structures Conjunctivae: conjunctivae normal Neck Neck: Yes full ROM and Yes no lymphadenopathy Resp Effort & Inspection: normal respiratory effort Auscultation: clear to auscultation bilaterally, no crackles, no rales, no rhonchi and no wheezes Cardio Rate: regular rate Rhythm: regular rhythm Heart sounds: S1 normal heart sound present and S2 normal heart sound present GI Inspection: Yes distended and Yes obesity Palpation (GI): Soft to palpation and nontender Auscultation: normal bowel sounds General: Yes no CVA tenderness Back/Spine/Pelvis Back: no CVA tenderness Skin Wounds: wounds noted (Left groin incision, small pink area, no drainage) Neuro General: patient oriented x3 Gait exam (Neuro): Normal gait present Extrem General: Yes normal to inspection, Yes full ROM and Yes edema Psych Affect: normal affect Attitude: cooperative Insight: Good insight present (Psych) Judgement: Good judgement present (Psych) Coding Level of Care Code TCM High MDM <= 7 Days Diagnoses Coronary artery disease involving [place] coronary artery of [place] heart without angina pectoris I25.10 Coronary Disease-Associated Artery/Lesion type: [place] artery [place] vs. transplanted heart: [place] heart Associated angina: without angina Status post percutaneous abdominal aortic aneurysm (AAA) repair Z98.890; Z86.79 Abdominal aneurysm I71.40 Chronic obstructive pulmonary disease, unspecified COPD type J44.9 COPD type: unspecified COPD Hypertension, unspecified type I10 Hypertension type: unspecified Time Spent (min) 41 Assessment & Plan Assessment & Plan (1) CAD (coronary artery disease): Comment: follows w/HCS Code(s): I25.10 - Atherosclerotic heart disease of [place] coronary artery without angina pectoris Category: Medical Qualifiers: Coronary Disease-Associated Artery/Lesion type: [place] artery [place] vs. transplanted heart: [place] heart Associated angina: without angina Q ualified Code(s): I25.10 - Atherosclerotic heart disease of [place] coronary artery without angina pectoris (2) Status post percutaneous abdominal aortic aneurysm (AAA) repair: Code(s): Z98.890 - Other specified postprocedural states; Z86.79 - Personal history of other diseases of the circulatory system Category: Surgical (3) Abdominal aneurysm: Code(s): I71.40 - Abdominal aortic aneurysm, without rupture, unspecified Category: Medical (4) COPD (chronic obstructive pulmonary disease): Comment: last saw 2022 w/prn follow-up only Code(s): J44.9 - Chronic obstructive pulmonary disease, unspecified Category: Medical Qualifiers: COPD type: unspecified COPD Qualified Code(s): J44.9 - Chronic obstructive pulmonary disease, unspecified (5) HTN (hypertension): Code(s): I10 - Essential (primary) hypertension Category: Medical Qualifiers: Hypertension type: unspecified Qualified Code(s): I10 - Essential (primary) hypertension Plan The patient will continue postoperative wound care with instructions to keep the incision dry and monitor for signs of infection. Blood pressure management will be adjusted with an increase in amlodipine to 5 mg, and the patient will monitor blood pressure at home with a cuff to ensure control. The patient is advised to avoid driving for 3 to 4 weeks post-surgery to prevent complications from medication side effects and physical strain. Follow-up appointments are scheduled with Dr. Salcedo and Dr. Yadav to reassess the patient's condition and adjust treatment as necessary. Patient CAD is stable-prior anterior STEMI status post LAD stenting. Now echo shows normalized LV ejection fraction. Continue strict blood pressure control we will goal of 130/84 per Cardiology. Patient denies any increase shortness of breath, reports that he has mild shortness of breath with exertion in general. Lungs are clear diminished in the bases. Continue albuterol sulfate 90 mcg/actuation 2 puffs inhalation Q 4-6 p.r.n. Patient was informed and verbally consented to the use of an ambient scribe for clinic note documentation during this visit. Medications: New amlodipine 5 mg PO DAILY 90 tabs 3RF
[2024-12-05 14:46] VITALS: BP 160/90; PULSE 63; TEMP 36.4; O2SAT 97; BMI 24.8
--- OUTSIDE RECORDS SUMMARY | 2024-12-05 15:13 | XMS_ITS | Patient Health Record ---
Author Organization [facility] Address [address] [place] [address] Care Team Providers Care Refinish Technician Name Role Phone Khalida (RETIRED) Ross ZHANG Primary Care Provide r Davion AnguianoRobert Unavailable [phone] Reason For Referral No Information Medications Medication [...] W/U Status Risk Notes Problem Pre-surgery evaluation (604609541) Other specified pre-operative examination (V72.83) Active confirmed Problem Colon cancer screening (858871253) Colon cancer screening (V76.51) Active confirmed Problem History of polyp of colon (223813219) H/O adenomatous polyp of colon (V12.72) Active confirmed Problem Hypertension (33776267) Hypertension (401.9) Active confirmed Plan Of Treatment Future Test Test Name Order Date COLONOSCOPY 08/29/2014 Insurance Providers Payer Name Payer Address Payer Phone Subscriber Number Group Number Insured Name Patient Relationship to Insured Coverage Start Date Coverage End Date MEDICARE OF [place] [address] [place] [address] [phone] [id number] JAMILA VALERIO Self - patient is the insured MEDEX ATTN CLAIMS [address] [place] [address] [id number] JOSE VALERIOALD Self - patient is the insured Medical (General) History Medical History History ICD Code Colonoscopy 04-09-2009--hyperplastic abhay yps and 2 lipomas Tubular adenomas removed in 2005 Hyperlipidemia Denies [place],DM,CVA,Lung disease,renal dise ase Surgical History Surgery Date(Month/Year) tonsillectomy
[2024-12-05 15:55] VITALS: BP 142/78; BP 150/62
== END 2024-12-05 15:50 | disposition home or self-care (01) ==
LOC: HO.HMCH 14:38
PROVIDERS: PCP Internal Medicine
DX: I25.10 Atherosclerotic heart disease of native coronary artery without angina pectoris (principal); J44.9 Chronic obstructive pulmonary disease, unspecified; Z98.890 Other specified postprocedural states; Z86.79 Personal history of other diseases of the circulatory system; I71.40 Abdominal aortic aneurysm, without rupture, unspecified; I10 Essential (primary) hypertension

== ENCOUNTER → 2024-12-05 14:38 | Outpatient (BNVA) | payer MEDICARE, SELFPAY ==
[2024-11-30 16:50] VITALS: BP 120/60; BP 128/62; BP 143/64; BMI 25.2
== END ==
PROVIDERS: PCP Internal Medicine
DX: I25.10 Atherosclerotic heart disease of native coronary artery without angina pectoris (principal); I71.40 Abdominal aortic aneurysm, without rupture, unspecified; J44.9 Chronic obstructive pulmonary disease, unspecified; I10 Essential (primary) hypertension; Z98.890 Other specified postprocedural states; Z86.79 Personal history of other diseases of the circulatory system
CPT/HCPCS: 99496

== ENCOUNTER 2024-12-20 13:35 | Outpatient (AMB) | payer MEDICARE, SELFPAY ==
[2022-12-29 15:18] VITALS: BP 120/60; BMI 25.2
[2024-11-30 16:50] VITALS: BP 120/60; BP 128/62; BP 143/64; BMI 25.2
--- NOTE | 2024-12-20 13:38 | A.OFFVIS_ITS ---
Vital Signs 12/20/24 13:39 Height 5 ft 11 in Weight 179 lb BMI 25.0 Intake Visit Reasons: 2w follow up s/p EVAR 11/14/24 Intake Note: 2 wk follow up EVAR 11/14/24. Pt thinks he may have some sutures in the left groin and concerned about some Left LE swelling Accompanied by: Spouse Allergies No Known Allergies (No Known Allergies*) Allergy (Verified 12/20/24 13:42) HPI HPI 2w follow up s/p EVAR 11/14/24: Details: Very pleasant 89-year-old gentleman presents for follow-up status post endovascular aneurysm repair. He had undergone procedure on 11/28/2024. Reports no postprocedure issues. He reports he is doing extremely well. Only concerned about his left groin incision which does cause occasional mild discomfort. He is back to normal activities. [facility] Medical History Vertigo STEMI (ST elevation myocardial infarction) Allergic rhinitis COPD (chronic obstructive pulmonary disease) Former smoker Elevated cholesterol CAD (coronary artery disease) HTN (hypertension) Acute coronary syndrome BPH w urinary obs/LUTS Prostate nodule Elevated PSA Surgical History History of abdominal aortic aneurysm (AAA) repair Hx of oral surgery Hx of cholecystectomy Hx of colonoscopy (~10/12/14) Stented coronary artery History of tonsillectomy Family History Father Prostate cancer Diabetes Mother Heart attack Social History Household Members: Spouse Housing: House Are you a primary customer care representative to a significant other at home: No Do you presently have visiting nurse or other home services: No Alcohol intake: current Alcohol intake frequency: does not drink Patient Tobacco Use Status: Former Tobacco user Tobacco use type: Cigarette Years Smoked: 62 e-Cigarette/Vaping Use: Former Use Second Hand Smoke Exposure: Yes Advance Directives Date on File: 09/08/22 service: No Current occupational status: retired Cognitive needs: No Hearing needs: No Vision needs: Yes (rx glasses) Review of Systems Const All systems reviewed & are unremarkable except as noted in HPI and below Reports no additional complaints ENT Reports Normal hearing present Card Denies chest pain, Denies chest pain at rest, Denies chest pain with activity and Denies pedal edema Resp Denies cough GI Denies abdominal pain Musc Denies abnormal gait, Denies muscle cramps and Denies radiating pain into limb Skin/Breast Denies skin ulcer and Denies wounds Neuro Reports Normal hearing present and Denies abnormal gait Psych Reports no additional complaints Physical Exam Vital Signs: BMI result Body Mass Index 25.0 Const General: cooperative, healthy appearing and comfortable Orientation/consciousness: oriented to person, oriented to place and oriented to time HEENT Head: Yes normal to inspection Neck Neck: Yes normal visual inspection Carotids: no bruits Chest Chest palpation & inspection: normal inspection of the chest Resp Effort & Inspection: normal respiratory effort and able to speak in complete sentences Auscultation: clear to auscultation bilaterally, no crackles, no rales, no rhonchi and no wheezes Cardio Rate: regular rate Rhythm: regular rhythm Heart sounds: S1 normal heart sound present and S2 normal heart sound present Bruits: no carotid bruits Peripheral pulses: Peripheral pulses 2+ throughout GI Inspection: Yes normal to inspection Skin Other: Left groin incision healing well. No evidence of bleeding hematoma Wounds: no wounds Hair: normal Neuro General: oriented to person, oriented to place and oriented to time Cranial nerves: Yes CN's II-XII intact bilaterally and Yes Normal hearing present Cognition (Neuro): normal cognition Motor exam (neuro): 5/5 motor strength present throughout Extrem Other: venous exam: No significant superficial varicosities or spider telangiectasias, minimal edema General: No clubbing, No cyanosis and No edema Psych Appearance: grossly normal Mental Status: mental status grossly normal Speech and movement: Normal speech and movement present Assessment & Plan Assessment & Plan (1) Abdominal aneurysm: Comment: 11/28/2024 - endovascular repair of aortic and left iliac artery aneurysm (Endologix AFX2 device) Code(s): I71.40 - Abdominal aortic aneurysm, without rupture, unspecified Category: Medical Plan: In short patient has done well status post endovascular repair. We have discussed the pathophysiology of aortic aneurysms and the risk of ruptures. We have discussed rupture risk based on size. In addition we have discussed conservative measures and risk factor modification for prevention of increase in size of the aneurysm. the patient is scheduled for surveillance follow-up in approximately 3 months. Thank you for allowing us to participate in the care of this patient Orders: Orders Blood Urea Nitrogen 3 Months I71.40 - Abdominal aortic aneurysm, without rupture, unspecified Creatinine 3 Months I71.40 - Abdominal aortic aneurysm, without rupture, unspecified CT angio abdomen pelvis 3 Months I71.40 - Abdominal aortic aneurysm, without rupture, unspecified Coding Level of Care Code Est Pt Level 4 (42337) Diagnoses Abdominal aneurysm I71.40
[2024-12-20 13:39] VITALS: BMI 25.0
--- OUTSIDE RECORDS SUMMARY | 2024-12-20 14:28 | XMS_ITS | Patient Health Record ---
Author Organization [facility] Address [address] [place] [address] Care Team Providers Care Tray Room Worker Name Role Phone Khalida (RETIRED) Ross ZHANG Primary Care Provide r Davion AnguianoRobert Unavailable [phone] Reason For Referral No Information Medications Medication [...] W/U Status Risk Notes Problem Pre-surgery evaluation (947868458) Other specified pre-operative examination (V72.83) Active confirmed Problem Colon cancer screening (281855143) Colon cancer screening (V76.51) Active confirmed Problem History of polyp of colon (100545169) H/O adenomatous polyp of colon (V12.72) Active confirmed Problem Hypertension (92805232) Hypertension (401.9) Active confirmed Plan Of Treatment Future Test Test Name Order Date COLONOSCOPY 08/29/2014 Insurance Providers Payer Name Payer Address Payer Phone Subscriber Number Group Number Insured Name Patient Relationship to Insured Coverage Start Date Coverage End Date MED[place]ARE OF [place] [address] [place] [address] [phone] [id number] JAMILA VALERIO Self - patient is the insured MEDEX ATTN CLAIMS [address] [place] [address] [phone] [id number] JOSE VALERIOALD Self - patient is the insured Medical (General) History Medical History History ICD Code Colonoscopy 04-09-2009--hyperplastic abhay yps and 2 lipomas Tubular adenomas removed in 2005 Hyperlipidemia Denies [place],DM,CVA,Lung disease,renal dise ase Surgical History Surgery Date(Month/Year) tonsillectomy
== END 2024-12-20 14:13 | disposition home or self-care (01) ==
LOC: HO.HVS 13:36
PROVIDERS: PCP Internal Medicine; Visit Provider Surgery Vascular Surgery
DX: I71.40 Abdominal aortic aneurysm, without rupture, unspecified (principal)
CPT/HCPCS: 99024

== ENCOUNTER → 2024-12-20 13:35 | Outpatient (BNVA) | payer MEDICARE, SELFPAY ==
[2024-11-30 16:50] VITALS: BP 120/60; BP 128/62; BP 143/64; BMI 25.2
== END ==
PROVIDERS: PCP Internal Medicine; Visit Provider Surgery Vascular Surgery
DX: I71.40 Abdominal aortic aneurysm, without rupture, unspecified (principal)
CPT/HCPCS: 99212

== ENCOUNTER 2025-01-10 14:15 | Outpatient (REF) | payer MEDICARE, SELFPAY ==
[2024-11-30 16:50] VITALS: BP 120/60; BP 128/62; BP 143/64; BMI 25.2
[2025-01-10 16:13] LABS: MANUAL DIFF FLAG NO
[2025-01-10 16:29] LABS: Hematocrit 35.6 % (42.0-52.0); Hemoglobin 11.6 g/dl (14.0-18.0); Imm Gran Abs Auto 0.03 X10*3/uL (0.00-0.03); Imm Gran Pct Auto 0.4 % (0.0-0.4); Lymphocytes Absolute Auto 2.7 X10*3/uL (1.2-4.9); Mean Corpuscular HGB Conc 32.6 g/dl (31.0-36.0); Mean Corpuscular Hemoglobin 29.5 pg (27.0-33.0); Mean Corpuscular Volume 90.6 fL (80.0-98.0); NRBC Abs Auto 0.000 X10*3/uL (0.0-0.012); NRBC Pct Auto 0.0 /100WBC (0.0-0.2); Platelet Count 129 X10*3/uL (160-400); Red Blood Count 3.93 X10*6/uL (4.60-5.80); White Blood Count 8.3 X10*3/uL (4.8-10.8)
[2025-01-10 17:50] LABS: Alanine Aminotransferase 15 U/L (0-40); Albumin Level 4.1 g/dL (3.5-5.0); Alkaline Phosphatase 68 U/L (39-117); Anion Gap 12 (12-20); Aspartate Amino Transferase 22 U/L (5-37); Blood Urea Nitrogen 31 mg/dL (9-16); Calcium 9.1 mg/dL (8.4-10.2); Carbon Dioxide 30 mmol/L (22-29); Chloride 107 mmol/L (96-108); Cholesterol 149 mg/dL (<200); Estimated Glomerular Filt Rate 47; HDL Cholesterol 40 mg/dL (>40); Potassium 4.6 mmol/L (3.3-5.1); Sodium 144 mmol/L (135-145); Total Protein 6.6 g/dL (6.5-8.0); Triglycerides 85 mg/dL (<150)
[2025-01-10 18:09] LABS: Prostate Specific Antigen 6.80 ng/mL (<0.05-4.0)
[2025-01-11 08:03] LABS: Syphilis Screen Nonreactive (Nonreactive)
== END 2025-01-10 14:16 | disposition home or self-care (01) ==
LOC: HO.LAB 14:15
PROVIDERS: Surgery Vascular Surgery; Urology; PCP Internal Medicine; Visit Provider Student in an Organized Health Care Education/Training Program
DX: Z12.5 Encounter for screening for malignant neoplasm of prostate (principal); C61 Malignant neoplasm of prostate; I10 Essential (primary) hypertension; I71.40 Abdominal aortic aneurysm, without rupture, unspecified
CPT/HCPCS: 36415; 69210; 80053; 80061; 82306; 83036; 84153; 84443; 85025; 86780; 99212

== ENCOUNTER 2025-01-10 14:15 | Outpatient (AMB) | payer MEDICARE, SELFPAY ==
[2024-11-30 16:50] VITALS: BP 120/60; BP 128/62; BP 143/64; BMI 25.2
--- NOTE | 2025-01-10 14:17 | MHC.PC.OV ---
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 The patient has a history of hypertension with home readings typically in the range of 120s to 130s mmHg, but noted an elevated pressure of 147/119 mmHg on occasion. During today's visit, the patient's blood pressure was recorded at 166 mmHg, which may be due to white coat syndrome. The patient is taking multiple antihypertensive medications and reports no episodes of dizziness or lightheadedness related to hypotension, suggesting current management may be effective. Additionally, vertigo has been an ongoing issue for the past year. The patient was prescribed Meclizine for symptom relief but has not consistently used the medication. Vertigo becomes more pronounced with sudden movements, indicative of possible postural changes causing dizziness. Medical History: - Hypertension - Chronic Obstructive Pulmonary Disease (diagnosed >14 years ago, non-smoker for 14 years) - Hyperlipidemia - Vertigo Surgical History: - Aneurysm removal in November Medications: - Amlodipine 2.5 mg for hypertension - Corex 6.25 mg for hypertension - Lisinopril 10 mg for hypertension - Atorvastatin 80 mg for hyperlipidemia - Albuterol inhaler for COPD, used rarely - Multivitamin - Meclizine (intermittently for vertigo) [facility] Medical History Vertigo STEMI (ST elevation myocardial infarction) Allergic rhinitis COPD (chronic obstructive pulmonary disease) Former smoker Elevated cholesterol CAD (coronary artery disease) HTN (hypertension) Acute coronary syndrome BPH w urinary obs/LUTS Prostate nodule Elevated PSA Surgical History History of abdominal aortic aneurysm (AAA) repair Hx of oral surgery Hx of cholecystectomy Hx of colonoscopy (~10/12/14) Stented coronary artery History of tonsillectomy Family History Father Prostate cancer Diabetes Mother Heart attack Social History Household Members: Spouse Housing: House Are you a primary caretaker resort to a significant other at home: No Do you presently have visiting nurse or other home services: No Alcohol intake: current Alcohol intake frequency: does not drink Patient Tobacco Use Status: Former Tobacco user Tobacco use type: Cigarette Years Smoked: 62 e-Cigarette/Vaping Use: Former Use Second Hand Smoke Exposure: Yes Advance Directives Date on File: 09/08/22 service: No Current occupational status: retired Cognitive needs: No Hearing needs: No Vision needs: Yes (rx glasses) Questionnaire Thrive Questionnaire Date Thrive assessed: 11/29/24 AUDIT C Alcohol Use Questionnaire (AUDIT-C) 1. How often do you have a drink containing alcohol?: Monthly or less 3. How often do you have six or more drinks on one occasion?: Never Total Score: 1 TAE-7 AMB Questionnaire TAE-7 Date TAE - 7 assessed: 09/19/24 Source: Developed by Drs. Robert Luna, Ema Jacob, Colton Hudson and colleagues, with an educational lurdes from [employer]. Review of Systems Const Details: - Cardiovascular: Reports hypertension - Respiratory: Denies shortness of breath, reports COPD - Neurological: Reports vertigo, denies persistent dizziness or falls - Ears, Nose, Throat: Reports earwax accumulation All systems reviewed & are unremarkable except as noted in HPI and below Physical exam (Primary Care) Vital Signs: Last Vital Signs Temp 97.4 F 01/10/25 14:21 Pulse 56 01/10/25 14:21 Resp 18 01/10/25 14:21 BP 166/66 H 01/10/25 14:21 Pulse Ox 94 01/10/25 14:21 Oxygen Delivery Method Room Air 01/10/25 14:21 BMI result Body Mass Index 24.8 Tobacco/Smoking Status: Tobacco use Status Tobacco use date assessed 12/05/24 01/10/25 14:26 Patient Tobacco Use Status Former Tobacco user 01/10/25 14:26 Tobacco use type Cigarette 01/10/25 14:26 e-Cigarette/Vaping Use Former Use 01/10/25 14:26 Thrive Assessment: Date of Thrive Assessment Date Thrive assessed 11/29/24 01/10/25 14:26 Const Other: General: +Alert and oriented, Well nourished, No acute distress. Eye: Pupils are equal, round and reactive to light, Intact accommodation, Extraocular movements are intact, Normal conjunctiva, Vision unchanged. HENT: Normocephalic, Atraumatic, Tympanic membranes are clear, Normal hearing, Oral mucosa is moist, No pharyngeal erythema, Ear canals patent with a bit of wax in the right ear. Respiratory: Lungs CTA bilaterally with a little bit of wheezing on the right side at the very end, No significant wheeze, Respirations are non-labored. Cardiovascular: Regular rate, Regular rhythm, S1 auscultated, S2 auscultated, No murmur, Good pulses equal in all extremities, Normal peripheral perfusion, No edema. Gastrointestinal: Soft, Non-tender, Non-distended, Normal bowel sounds, No organomegaly. Musculoskeletal: Normal range of motion, Normal strength, No tenderness, No swelling, No deformity, Normal gait. Integumentary: Warm, Dry, Lykens, Intact. Neurologic: Alert, Oriented, Normal sensory, Normal motor function, No focal defects, Cranial Nerves II-XII are grossly intact, Normal deep tendon reflexes. Psychiatric: Cooperative, Appropriate mood & affect, Normal judgment. Office Procedures Cerumen Removal From which ear canal was the cerumen removed: right Removal: irrigation and cerumen loop/spoon Notes: patient tolerated procedure well, no complications and ear canal clear [id number] Wax Removal by Spoon/Curette Coding Level of Care Code Est Pt Level 4 (64901) Complex EM visit Add On G2211 Diagnoses Hypertension, unspecified type I10 Hypertension type: unspecified CPT Codes Office Procedure - CPT: 98621-Hja Wax Removal by Spoon/Curette ([id number]) Assessment & Plan Assessment & Plan (1) HTN (hypertension): Comment: - Discussed the importance of monitoring blood pressure at home and reducing salt intake to manage elevated readings, especially considering the potential for white coat hypertension. - Pressures at home between 110 and 130 with a diastolic of 70 to 80 Code(s): I10 - Essential (primary) hypertension Category: Medical Qualifiers: Hypertension type: unspecified Qualified Code(s): I10 - Essential (primary) hypertension Plan: Continue Same Regiment Plan 2. Chronic Obstructive Pulmonary Disease (COPD) - COPD is stable; patient isn't using inhalers frequently. - Encouraged continued use of albuterol as needed. 3. Vertigo - Advised reducing sudden movements and encouraged trial of Meclizine for symptom management. 4. Hyperlipidemia - Atorvastatin 80 mg to be continued; recent labs seem acceptable, awaiting A1C test results. I discussed with the patient the likely diagnosis of white coat hypertension versus poorly controlled hypertension. We reviewed management strategies including home blood pressure monitoring, adherence to antihypertensive medication, and dietary changes, particularly reducing salt intake, to manage blood pressure effectively. Regarding COPD management, I advised the patient to continue with the current use of the albuterol inhaler only when necessary. For vertigo, I emphasized careful movements to prevent exacerbation and advised trying Meclizine for symptom relief when required. An A1C test and rescheduling lab work were suggested to assess diabetes risk, and we planned follow-up visits accordingly. I provided instructions for colonoscopy follow-up due to the patient's colon cancer history. Orders: Orders Complete Blood Count Auto Diff Today I10 - Essential (primary) hypertension Hemoglobin A1c Today I10 - Essential (primary) hypertension Lipid Panel Today I10 - Essential (primary) hypertension TSH reflex Free T4 Today I10 - Essential (primary) hypertension Comprehensive Met. Panel Today I10 - Essential (primary) hypertension Syphilis Screen Today I10 - Essential (primary) hypertension Vitamin D 25-OH Total Today I10 - Essential (primary) hypertension Patient Instructions: - Continue blood pressure medicines as prescribed. - Watch your salt intake; avoid adding extra salt to foods. - Use your albuterol inhaler when you have trouble breathing. - Try Meclizine if your dizziness affects daily activities. - Move slowly to prevent dizziness or falls. - Follow up with us for blood work and your next appointment. - Make sure to have your recommended colonoscopies for health maintenance.
[2025-01-10 14:21] VITALS: BP 166/66; PULSE 56; RESP 18; TEMP 36.3; O2SAT 94; BMI 24.8
== END 2025-01-10 16:18 | disposition home or self-care (01) ==
LOC: HO.HMCHD 14:15
PROVIDERS: PCP Student in an Organized Health Care Education/Training Program; Visit Provider Student in an Organized Health Care Education/Training Program
DX: I10 Essential (primary) hypertension (principal); H61.21 Impacted cerumen, right ear

== ENCOUNTER 2025-02-28 09:10 | Outpatient (REF) | payer MEDICARE, SELFPAY ==
[2024-11-30 16:50] VITALS: BP 120/60; BP 128/62; BP 143/64; BMI 25.2
[2025-02-28 11:43] LABS: Prostate Specific Antigen 6.67 ng/mL (<0.05-4.0)
== END 2025-02-28 09:11 | disposition home or self-care (01) ==
LOC: HO.10HDL 09:10
PROVIDERS: Visit Provider Urology
DX: Z12.5 Encounter for screening for malignant neoplasm of prostate (principal); C61 Malignant neoplasm of prostate
CPT/HCPCS: 36415; 84153

== ENCOUNTER 2025-03-17 11:27 | Outpatient (AMB) | payer MEDICARE, SELFPAY ==
[2022-12-29 15:18] VITALS: BP 120/60; BMI 25.2
[2024-11-30 16:50] VITALS: BP 120/60; BP 128/62; BP 143/64; BMI 25.2
--- NOTE | 2025-03-17 11:36 | A.OFFVIS_ITS ---
Intake Visit Reasons: 6M PSA/PVR Intake Note: Patient is Present for Follow Up Urology Medication: Finasteride Antibiotic Allergies: None Blood Thinners:Aspirin PVR: 0ml High Reach Operator Required: No Accompanied by: Self / Same As Patient Allergies No Known Allergies (No Known Allergies*) Allergy (Verified 03/17/25 11:41) HPI Comments Details: Pj is a very pleasant male. He is a patient of Dr. Gaxiola. He is seen for the following urologic issues - prostate cancer - grade group 4 - phimosis Continue on finasteride alternating months - six-month follow-up PSA stable Discussed management. Intermittent hormone therapy with PSA cutoff between 6 and 10 Urinary Symptoms Review - Recent PSA level was 6.5 during a month off finasteride therapy. - PSA levels generally managed with alternating monthly finasteride treatment. Prostate cancer - grade group 4 10/01 - PSA 5.4 Histologic type: Adenocarcinoma, acinar type Histologic grade: [place] score: 4+4=8 (right mid lateral) 4+3=7 (left apex lateral, right base lateral, right apex lateral) 3+4=7 (left mid medial, right mid medial, right apex medial) 3+3=6 (left base medial, left mid lateral, right base medial) Tumor quantitation: Number cores positive: 10 Total number of cores: 12 % of tissue involved: 30-35% of all tissue examined Periprostatic fat inv.: Not identified Seminal vesicle inv.: Not identified Perineural inv.: Present LVI: Not identified PT2a TRUS volume 40 Prostate nodule/elevated PSA Minimal urinary issues - Only getting up once or twice at night PSA - 07/01 7.1/5.9 19%, 12/29 3.8, 03/01 3.0 F 30%, 08/31 4.6, 01/31 4.1 20% on finasteride, 08/01 5.3 21%, 03/03 4.5 22%, 09/02 6.5, 03/04 6.7 ANIA nodule on left base Discussion regarding prostate cancer he is at 10-15 % risk Good response to finasteride with noticeable improvement in stream [facility] Medical History Vertigo STEMI (ST elevation myocardial infarction) Allergic rhinitis COPD (chronic obstructive pulmonary disease) Former smoker Elevated cholesterol CAD (coronary artery disease) HTN (hypertension) Acute coronary syndrome BPH w urinary obs/LUTS Prostate nodule Elevated PSA Surgical History History of abdominal aortic aneurysm (AAA) repair Hx of oral surgery Hx of cholecystectomy Hx of colonoscopy (~10/12/14) Stented coronary artery History of tonsillectomy Family History Father Prostate cancer Diabetes Mother Heart attack Social History Household Members: Spouse Housing: House Are you a primary managed care manager to a significant other at home: No Do you presently have visiting nurse or other home services: No Alcohol intake: current Alcohol intake frequency: does not drink Patient Tobacco Use Status: Former Tobacco user Tobacco use type: Cigarette Years Smoked: 62 e-Cigarette/Vaping Use: Former Use Second Hand Smoke Exposure: Yes Advance Directives Date on File: 09/08/22 service: No Current occupational status: retired Cognitive needs: No Hearing needs: No Vision needs: Yes (rx glasses) Review of Systems Const Denies chills and Denies fever(s) Card Reports no additional complaints and Denies syncope Resp Denies cough GI Denies abdominal pain and Denies heartburn Reports as per HPI and Denies change in libido Neuro Denies syncope Psych Denies change in libido Endo Denies change in libido Physical Exam Const General: cooperative, healthy appearing, comfortable and no acute distress Orientation/consciousness: patient oriented x3 HEENT Face and sinus: Yes normal facial exam Mouth: moist mucous membranes Neck Neck: Yes normal visual inspection, Yes full ROM and Yes trachea midline Chest Chest palpation & inspection: normal inspection of the chest Resp Effort & Inspection: normal respiratory effort, able to speak in complete sentences and no respiratory distress GI Inspection: Yes normal to inspection Back/Spine/Pelvis Cervical Spine: normal cervical lordosis Thoracic/Lumbar Spine: thoracic and lumbar spine normal to inspection Skin General skin exam: no rashes or lesions noted Neuro General: patient oriented x3, gait normal, tone normal and moves all extremities Extrem General: Yes normal to inspection and Yes capillary refill normal Office Procedures Post Void Residual Post Residual Void Post Void Residual (PVR): 0 [id number] Void Residual by ultrasound Assessment & Plan Assessment & Plan (1) Prostate cancer: Comment: Grade group 4 Code(s): C61 - Malignant neoplasm of prostate Category: Medical (2) BPH w urinary obs/LUTS: Code(s): N40.1 - Benign prostatic hyperplasia with lower urinary tract symptoms; N13.8 - Other obstructive and reflux uropathy Category: Medical Plan Six-month follow-up PSA Orders: Orders PSA,Total (Free>4and<10) 6 Months C61 - Malignant neoplasm of prostate AMB Post Void Residual by ultrasound 03/17/25 N40.1 - Benign prostatic hyperplasia with lower urinary tract symptoms, N13.8 - Other obstructive and reflux uropathy Patient Instructions: This note is constructed using voice recognition software. While every effort has been made to ensure accuracy software lead errors may have been included. Imaging studies, laboratory and physical exam results were discussed and reviewed in detail. No major barriers to patient understanding were identified. An opportunity to ask questions regarding the treatment plan was provided. All questions were answered. The patient expressed understanding and agreement with the above treatment plan. The patient is aware they should contact our office by phone for worsening of their current condition or the appearance of new urologic symptoms. Compliance is encouraged with any medications and followup testing that is ordered. It is a privilege to participate in the urologic care of your patient. If you have any questions or concerns regarding treatment for the above conditions, or other urologic issues, please do not hesitate to contact me. The office telephone contact is [phone]. Sincerely, Dr Santnaa Jarrett MD, [facility] - Urology Compassionate Specialist Care for the Genitourinary System Coding Level of Care Code Est Pt Level 3 (19521) Complex EM visit Add On G2211 Diagnoses Prostate cancer C61 BPH w urinary obs/LUTS N40.1; N13.8 CPT Codes Post Residual Void - PVR CPT Code: 73447-Tzwg Void Residual by ultrasound ([id number])
--- OUTSIDE RECORDS SUMMARY | 2025-03-17 13:50 | XMS_ITS | Patient Health Record ---
Author Organization [facility] Address [address] [place] [address] Care Team Providers Care Escalator Constructor Name Role Phone Khalida (RETIRED) Ross ZHANG Primary Care Provide r Davion Robert Anguiano Unavailable [phone] Reason For Referral No Information Medications Medication SIG (Take, Route, Frequency, Duration) Notes Start Date End Date Status Ibuprofen 200 MG 1 tablet as needed O rally every 6 hrs Active Centrum Silver 1 1 Orally QD A ctive Colyte w Flavor Packs 240 GM as directed Orally as directed; Duration: 1 day(s) 09/01/2014 Active Lovastatin 40 MG 1 tablet with a meal Orally Once a day Active Problems Problem Type SNOMED Code ICD Code Onset Dates Problem Status W/U Status Risk Notes Problem Pre-surgery evaluation (291338904) Other specified pre-operative examination (V72.83) Active confirmed Problem Colon cancer screening (147061775) Colon cancer screening (V76.51) Active confirmed Problem History of polyp of colon (785732241) H/O adenomatous polyp of colon (V12.72) Active confirmed Problem Hypertension (16885815) Hypertension (401.9) Active confirmed Plan Of Treatment Future Test Test Name Order Date COLONOSCOPY 08/29/2014 Insurance Providers Payer Name Payer Address Payer Phone Subscriber Number Group Number Insured Name Patient Relationship to Insured Coverage Start Date Coverage End Date MED[place]ARE OF [place] [address] [place] [address] [id number] JAMILA VALERIO Self - patient is the insured [employer] ATTN CLAIMS [address] [place] [phone] [id number] ZAHRA Perez, JAMILA Self - patient is the insured Medical (General) History Medical History History ICD Code Colonoscopy 04-09-2009--hyperplastic abhay yps and 2 lipomas Tubular adenomas removed in 2005 Hyperlipidemia Denies [place],DM,CVA,Lung disease,renal dise ase Surgical History Surgery Date(Month/Year) tonsillectomy
== END 2025-03-17 12:19 | disposition home or self-care (01) ==
LOC: HO.HUSH 11:28
PROVIDERS: PCP Internal Medicine; Visit Provider Urology
DX: C61 Malignant neoplasm of prostate (principal); N40.1 Benign prostatic hyperplasia with lower urinary tract symptoms; N13.8 Other obstructive and reflux uropathy
CPT/HCPCS: 99213; G2211

== ENCOUNTER → 2025-03-17 11:27 | Outpatient (BNVA) | payer MEDICARE, SELFPAY ==
[2024-11-30 16:50] VITALS: BP 120/60; BP 128/62; BP 143/64; BMI 25.2
== END ==
PROVIDERS: PCP Internal Medicine; Visit Provider Urology
DX: N40.1 Benign prostatic hyperplasia with lower urinary tract symptoms (principal); N13.8 Other obstructive and reflux uropathy; C61 Malignant neoplasm of prostate
CPT/HCPCS: 51798; 99212

== ENCOUNTER 2025-03-20 08:32 | Outpatient (REF) | payer MEDICARE, SELFPAY ==
[2024-11-30 16:50] VITALS: BP 120/60; BP 128/62; BP 143/64; BMI 25.2
--- NOTE | ~2025-03-20 | CT_ITS ---
EXAMINATION: CT ANGIOGRAM ABDOMEN AND PELVIS CLINICAL INFORMATION: I 71.40. Abdominal aortic aneurysm without rupture. Status post endovascular repair on November 28, 2024. COMPARISON: October 20, 2024. TECHNIQUE: Multiple axial images were obtained through the abdomen and pelvis following the administration of 80 mL of Omnipaque 350 intravenous contrast. Images were reviewed on a dedicated 3-D workstation. This CT examination was performed using dose optimization techniques as appropriate, variously including the following: *Automated exposure control *Adjustment of mA and/or kV according to patient size (this includes techniques or standardized protocols for targeted exams where dose is matched to indication/reason for exam; i.e. extremities or head) *Use of iterative reconstruction technique DLP: 289 mGy-cm FINDINGS: Abdominal aorta: Normal patency. And/or aortoiliac graft stenting from the origin of the renal arteries to the common iliac arteries. No IV contrast extravasation. No periaortic edema pattern or fluid collection. Suprarenal segment diameter: 27 x 26 mm. Infrarenal segment diameter: 23 x 22 mm. Distal segment diameter: 49 x 50 mm. Right common iliac artery is patent. No IV contrast extravasation. Maximum diameter 16 mm. Right external iliac artery is patent with a diameter of 9.6 mm. Right internal iliac artery is patent with a diameter of 8.2 mm. Left common iliac artery is patent. No IV contrast extravasation. Maximum diameter: 24 m. Left external iliac artery is patent with a diameter of 7.6 mm. Left internal iliac artery is patent with a diameter of 6.5 mm. Ancillary findings: There is a 34 mm fluid density in the fat planes of the left inguinal region just above the left common femoral vein. There is no IV contrast extravasation from the left superficial femoral artery or the profunda. Celiac trunk is patent without gross focal stenosis. Small calcified plaque in the origin. Proper hepatic artery is patent. Splenic artery is patent. Superior mesenteric artery is patent with calcified plaque in the origin. Main renal arteries are patent with calcified plaque in the origin. I do not see the inferior mesenteric artery. Bilateral renal cysts without hydronephrosis or gross nephrolithiasis. Status post cholecystectomy. 23 mm cystic lesion, head of the pancreas. Liver measures 15 cm. Spleen measures 9 cm. Numerous diverticula, left hemicolon. Multilevel thoracolumbar spondylosis with a levoconvex rotoscoliosis apex at L1-2. CT/CT angio abdomen pelvis IMPRESSION: Status post Endo aortoiliac graft stenting without leak. 34 mm seroma versus prior resolving hematoma, left inguinal region. Left common femoral vein injury cannot be excluded. 23 mm cystic lesion, pancreas. Bilateral renal cysts. Diverticular disease, colonic. Fleischner guidelines were followed. Electronically signed by: Jere Dalal MD 03/20/2025 09:57 AM EST
--- OUTSIDE RECORDS SUMMARY | 2025-03-20 08:51 | XMS_ITS | Patient Health Record ---
Author Organization [facility] Address [address] [place] [address] Care Team Providers Care Yard Associate Name Role Phone Khalida (RETIRED) Ross ZHANG Primary Care Provide r Davion Robert Anguiano Unavailable [phone] Reason For Referral No Information Medications Medication [...] W/U Status Risk Notes Problem Pre-surgery evaluation (862372472) Other specified pre-operative examination (V72.83) Active confirmed Problem Colon cancer screening (213471244) Colon cancer screening (V76.51) Active confirmed Problem History of polyp of colon (782617125) H/O adenomatous polyp of colon (V12.72) Active confirmed Problem Hypertension (62888413) Hypertension (401.9) Active confirmed Plan Of Treatment Future Test Test Name Order Date COLONOSCOPY 08/29/2014 Insurance Providers Payer Name Payer Address Payer Phone Subscriber Number Group Number Insured Name Patient Relationship to Insured Coverage Start Date Coverage End Date [place] [address] [place] [address] [id number] JAMILA VALERIO Self - patient is the insured MED[employer] ATTN CLAIMS [address] [place] [address] [phone] [id number] ZAHRA Perez, JAMILA Self - patient is the insured Medical (General) History Medical History History ICD Code Colonoscopy 04-09-2009--hyperplastic abhay yps and 2 lipomas Tubular adenomas removed in 2005 Hyperlipidemia Denies [place],DM,CVA,Lung disease,renal dise ase Surgical History Surgery Date(Month/Year) tonsillectomy
[2025-03-20] MEDS: iohexoL 350 MG/ML 100 ML INFUS..BTL IV (09:22)
[2025-03-20 11:16] LABS: Creatinine POC 0.8 mg/dL (0.5-1.4); GFR POC > 60
== END 2025-03-20 08:33 | disposition home or self-care (01) ==
LOC: HO.CT 08:32
PROVIDERS: PCP Student in an Organized Health Care Education/Training Program; Visit Provider Surgery Vascular Surgery
DX: I71.40 Abdominal aortic aneurysm, without rupture, unspecified (principal)
CPT/HCPCS: 74174; 82565; Q9967

== ENCOUNTER → 2025-03-20 08:34 | Outpatient (BNV) | payer MEDICARE, SELFPAY ==
[2024-11-30 16:50] VITALS: BP 120/60; BP 128/62; BP 143/64; BMI 25.2
== END ==
PROVIDERS: PCP Student in an Organized Health Care Education/Training Program; Visit Provider Radiology Diagnostic Radiology
DX: I71.40 Abdominal aortic aneurysm, without rupture, unspecified (principal); K86.2 Cyst of pancreas; N28.1 Cyst of kidney, acquired; K57.30 Diverticulosis of large intestine without perforation or abscess without bleeding
CPT/HCPCS: 74174

== ENCOUNTER 2025-04-17 13:58 | Outpatient (AMB) | payer MEDICARE, SELFPAY ==
[2024-11-30 16:50] VITALS: BP 120/60; BP 128/62; BP 143/64; BMI 25.2
--- NOTE | 2025-04-17 13:53 | A.OFFPC_ITS ---
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 He reports a new complaint of feeling chilly all the time for the last year and a half, requiring him to wear thermal underwear to bed. He also reports night sweats, which he attributes to using many blankets due to feeling cold. The patient has a history of borderline anemia, with a last hemoglobin of 11.6. His thyroid function has been tested and is normal. Regarding his hypertension, he is managed on amlodipine 5 mg, lisinopril 10 mg, and Coreg 3.125 mg twice daily. He self-monitors his blood pressure at home with readings ranging from as high as 147 to as low as 119. For his COPD, he uses an albuterol inhaler very rarely, typically when he gets short of breath after activities like cutting the grass. He reports that when he feels short of breath while mowing, his blood pressure increases. The patient is treated for benign prostatic hyperplasia with finasteride, which he takes every other month. His hypercholesterolemia is managed by his aquatic scientist, Dr. Calvillo, whom he will see at the end of the month. His aquatic scientist recently increased his cholesterol medication to 80 mg from 40 mg. His last total cholesterol was 149 and LDL was 92. Medical History: - Borderline Anemia - Hypertension - Chronic Obstructive Pulmonary Disease (COPD) - Benign Prostatic Hyperplasia - Hypercholesterolemia Medications: - Amlodipine 5 mg for hypertension - Lisinopril 10 mg for hypertension - Coreg 3.125 mg twice a day for hyperte nsion - Albuterol inhaler as needed for COPD - Finasteride, taken every other month f or benign prostatic hyperplasia - Unspecified cholesterol medication 80 mg for hypercholesterolemia Diagnostic Results: - Labs: Last hemoglobin was 11.6. - Labs: Last total cholesterol was 149. - Labs: Last LDL cholesterol was 92. - Tests and Diagnostics: Thyroid functio n tests were normal. Social History - Functional Status: The patient reports feeling good overall. - Level of Activity: The patient engages in yard work, including cutting the grass. [facility] Medical History (Updated 04/17/25 @ 14:47 by Mehrdad Goins MD) Anemia Vertigo STEMI (ST elevation myocardial infarction) Allergic rhinitis COPD (chronic obstructive pulmonary disease) Former smoker Elevated cholesterol CAD (coronary artery disease) HTN (hypertension) Acute coronary syndrome BPH w urinary obs/LUTS Prostate nodule Elevated PSA Surgical History History of abdominal aortic aneurysm (AAA) repair Hx of oral surgery Hx of cholecystectomy Hx of colonoscopy (~10/12/14) Stented coronary artery History of tonsillectomy Family History Father Prostate cancer Diabetes Mother Heart attack Social History Household Members: Spouse Housing: House Are you a primary caretaker grounds to a significant other at home: No Do you presently have visiting nurse or other home services: No Alcohol intake: current Alcohol intake frequency: does not drink Patient Tobacco Use Status: Former Tobacco user Tobacco use type: Cigarette Years Smoked: 62 e-Cigarette/Vaping Use: Former Use Second Hand Smoke Exposure: Yes Advance Directives Date on File: 09/08/22 service: No Current occupational status: retired Cognitive needs: No Hearing needs: No Vision needs: Yes (rx glasses) Questionnaire Thrive Questionnaire Date Thrive assessed: 11/29/24 TAE-7 AMB Questionnaire TAE-7 Date TAE - 7 assessed: 09/19/24 Source: Developed by Drs. Robert Luna, Ema Jacob, Colton Hudson and colleagues, with an educational lurdes from [employer]. Review of Systems Narrative Review of Systems - General: Reports feeling chilly all the time for the past year and a half. Denies any other complaints. - Dermatologic: Reports night sweats. - Respiratory: Reports very rare episodes of dyspnea, particularly during physical exertion like mowing the lawn. All systems reviewed & are unremarkable except as reviewed in HPI and above Physical exam (Primary Care) Vital Signs: Last Vital Signs Temp 97.5 F 04/17/25 14:14 Pulse 73 04/17/25 14:14 Resp 20 04/17/25 14:14 BP 138/76 04/17/25 14:14 Pulse Ox 95 04/17/25 14:14 Oxygen Delivery Method Room Air 04/17/25 14:14 BMI result Body Mass Index 27.0 Tobacco/Smoking Status: Tobacco use Status Tobacco use date assessed 12/05/24 04/17/25 13:55 Patient Tobacco Use Status Former Tobacco user 04/17/25 13:55 Tobacco use type Cigarette 04/17/25 13:55 e-Cigarette/Vaping Use Former Use 04/17/25 13:55 Thrive Assessment: Date of Thrive Assessment Date Thrive assessed 11/29/24 04/17/25 13:55 Narrative Physical Exam General: +Alert and oriented, Well nourished, No acute distress. Eye: Pupils are equal, round and reactive to light, Intact accommodation, Extraocular movements are intact, Normal conjunctiva, Vision unchanged. HENT: Normocephalic, Atraumatic, Tympanic membranes are clear, Normal hearing, Oral mucosa is moist, No pharyngeal erythema, Ear canals patent. Respiratory: Lungs CTA bilaterally, No wheeze, Respirations are non-labored, Uses albuterol inhaler for COPD, very rarely. Cardiovascular: Regular rate, Regular rhythm, S1 auscultated, S2 auscultated, No murmur, Good pulses equal in all extremities, Normal peripheral perfusion, No edema, Blood pressure well controlled with amlodipine 5 mg, lisinopril 10 mg, and Coreg 3.125 mg twice a day. Gastrointestinal: Soft, Non-tender, Non-distended, Normal bowel sounds, No organomegaly. Musculoskeletal: Normal range of motion, Normal strength, No tenderness, No sw elling, No deformity, Normal gait. Integumentary: Warm, Dry, [place], Intact. Neurologic: Alert, Oriented, Normal sensory, Normal motor function, No focal defects, Cranial Nerves II-XII are grossly intact, Normal deep tendon reflexes. Psychiatric: Cooperative, Appropriate mood & affect, Normal judgment. Coding Level of Care Code Est Pt Level 4 (66936) Complex visit Add On G2211 Diagnoses Hypertension, unspecified type I10 Hypertension type: unspecified Chronic obstructive pulmonary disease, unspecified COPD type J44.9 COPD type: unspecified COPD Coronary artery disease involving [place] coronary artery of [place] heart without angina pectoris I25.10 Associated angina: without angina Coronary Disease-Associated Artery/Lesion type: [place] artery [place] vs. transplanted heart: [place] heart BPH w urinary obs/LUTS N40.1; N13.8 Anemia, unspecified type D64.9 Anemia type: unspecified type Assessment & Plan Assessment & Plan (1) HTN (hypertension): Comment: The patient's blood pressure is well-controlled on a three-drug regimen of amlodipine 5 mg, lisinopril 10 mg, and Coreg 3.125 mg twice daily, with home readings ranging from 119 to 147. His blood pressure today is good. The plan is to continue current medications. Code(s): I10 - Essential (primary) hypertension Category: Medical Qualifiers: Hypertension type: unspecified Qualified Code(s): I10 - Essential (primary) hypertension (2) COPD (chronic obstructive pulmonary disease): Comment: His total cholesterol is 149 and LDL is 92, which is trending in the right direction towards the goal of under 80. His aquatic scientist recently increased his cholesterol medication to 80 mg. He will continue to follow with his aquatic scientist, with an appointment scheduled for the of the month. Code(s): J44.9 - Chronic obstructive pulmonary disease, unspecified Category: Medical Qualifiers: COPD type: unspecified COPD Qualified Code(s): J44.9 - Chronic obstructive pulmonary disease, unspecified (3) CAD (coronary artery disease): Comment: follows w/HCS Code(s): I25.10 - Atherosclerotic heart disease of [place] coronary artery without angina pectoris Category: Medical Qualifiers: Associated angina: without angina Coronary Disease-Associated [place]/Lesion type: [place] artery [place] vs. transplanted heart: [place] heart Qualified Code(s): I25.10 - Atherosclerotic heart disease of [place] coronary artery without angina pectoris (4) BPH w urinary obs/LUTS: Comment: The patient continues to take finasteride every other month. No changes to this regimen were made. Code(s): N40.1 - Benign prostatic hyperplasia with lower urinary tract symptoms; N13.8 - Other obstructive and reflux uropathy Category: Medical (5) Anemia: Comment: The patient has a history of borderline anemia, with a last hemoglobin of 11.6. He was advised that dietary measures such as eating raisins could be beneficial. Code(s): D64.9 - Anemia, unspecified Category: Medical Qualifiers: Anemia type: unspecified type Qualified Code(s): D64.9 - Anemia, unspecified Plan: Health Maintenance: - Diagnostic testing: A blood draw was ordered today to check blood counts, specifically due to a history of elevated counts. - Specialist Follow-up: The patient is scheduled to see his aquatic scientist, Dr. Calvillo, on the of the month for cholesterol management. - Follow-up: The patient is scheduled to return for a follow-up visit in three months. Patient was informed and verbally consented to the use of an ambient scribe for clinic note documentation during this visit. Plan I discussed with the patient that his persistent feeling of being cold is likely part of the aging process, as his thyroid function is normal. I informed him that while his anemia is borderline, we would recheck his blood counts today, especially since they have been high on two prior occasions. I advised him that his blood pressure is well-controlled on his current three medications and he should continue taking them as prescribed. For his COPD, I instructed him to use his albuterol inhaler before activities like mowing the grass to prevent shortness of breath, rather than waiting until he is already uncomfortable. I confirmed that his cholesterol levels are improving and that he should continue to follow with his aquatic scientist, who has appropriately increased his medication dose. We will have him return in three months for a follow-up, and I will contact him with the results of today's blood work. Patient Instructions: - Continue taking your blood pressure medications as prescribed: amlodipine, lisinopril, and Coreg. - Use your albuterol inhaler before you do activities that you know will make you short of breath, like mowing the lawn. Do not wait until you are already having trouble breathing. - You will have your blood drawn today to check your blood counts. - Continue with your plan to see your heart doctor, Dr. Calvillo, at the end of the month. - We will see you back in the office in three months.
[2025-04-17 14:14] VITALS: BP 138/76; PULSE 73; RESP 20; TEMP 36.4; O2SAT 95; BMI 27.0
== END 2025-04-17 14:40 | disposition home or self-care (01) ==
LOC: HO.HMCHD 13:59
PROVIDERS: PCP Student in an Organized Health Care Education/Training Program; Visit Provider Student in an Organized Health Care Education/Training Program
DX: I10 Essential (primary) hypertension (principal); J44.9 Chronic obstructive pulmonary disease, unspecified; I25.10 Atherosclerotic heart disease of native coronary artery without angina pectoris; N40.1 Benign prostatic hyperplasia with lower urinary tract symptoms; N13.8 Other obstructive and reflux uropathy; D64.9 Anemia, unspecified

== ENCOUNTER → 2025-04-17 13:58 | Outpatient (BNVA) | payer MEDICARE, SELFPAY ==
[2024-11-30 16:50] VITALS: BP 120/60; BP 128/62; BP 143/64; BMI 25.2
== END ==
PROVIDERS: PCP Student in an Organized Health Care Education/Training Program; Visit Provider Student in an Organized Health Care Education/Training Program
DX: I10 Essential (primary) hypertension (principal); J44.9 Chronic obstructive pulmonary disease, unspecified; I25.10 Atherosclerotic heart disease of native coronary artery without angina pectoris; N40.1 Benign prostatic hyperplasia with lower urinary tract symptoms; N13.8 Other obstructive and reflux uropathy; D64.9 Anemia, unspecified; E78.00 Pure hypercholesterolemia, unspecified
CPT/HCPCS: 99212